=== PATIENT | female | born 1985 | race Caucasian/White ===

== ENCOUNTER → 2017-04-18 | Outpatient (CLI) | payer BC ==
[2017-04-18 14:44] VITALS: BP 115/83; PULSE 94; RESP 16; TEMP 98.3; BMI 39.0
[2017-04-18 16:25] LABS: ALT 60 U/L (9-52); AST 29 U/L (14-36); Albumin 4.3 g/dL (3.5-5.0); Alkaline Phosphatase 121 U/L (38-126); Anion Gap 15 mmol/L; Blood Urea Nitrogen 14 mg/dL (7-17); Calcium 9.5 mg/dL (8.4-10.2); Carbon Dioxide 23 mmol/L (22-30); Chloride 107 mmol/L (98-107); Cholesterol 187 mg/dL (<200); Glucose 99 mg/dL (74-99); HDL Cholesterol 49 mg/dL (40-60); LDL Cholesterol,Calculated 114 mg/dL (0-99); Potassium 4.1 mmol/L (3.5-5.1); Sodium 145 mmol/L (137-145); Total Bilirubin 0.2 mg/dL (0.2-1.3); Total Protein 7.7 g/dL (6.3-8.2); Triglycerides 118 mg/dL (<150)
[2017-04-18 16:33] LABS: HCT 41.8 % (34.0-46.0); HGB 13.7 gm/dL (11.4-16.0); MCH 29.2 pg (25.0-35.0); MCHC 32.6 g/dL (31.0-37.0); MCV 89.5 fL (80.0-100.0); Mean Platelet Volume 7.1; Platelet Count 379 k/uL (150-450); RBC 4.67 m/uL (3.80-5.40); RDW 13.9 % (11.5-15.5); WBC 9.2 k/uL (3.8-10.6)
[2017-04-19 01:08] LABS: Iron Saturation 22.54 (12.00-45.00)
[2017-04-19 01:12] LABS: Folate, Serum 9.5 ng/mL
[2017-04-19 01:22] LABS: Vitamin D 25 Hydroxy 13.9 ng/mL (30.0-100.0)
[2017-04-21 15:01] LABS: Anabasine Urine <2.0 ng/mL (<2.0)
--- NOTE | 2017-05-30 07:23 | P.HPBAR ---
Bariatric H&P - History & Physicial H&P Date: 04/18/17 History & Physicial: Visit/CC: Patient initial contact: Initial weight: Initial weight in pounds: Height: Initial BMI: Last weight: Current weight: Current weight in pounds: Current BMI: [place] body weight (based on NIH guidelines): Excess body weight loss: The patient is a 32 year-old F who presents for Bariatric Assessment. saw dr brewster wild oyster harvester recommend went over [facility] [place] drug test 3 months... DATE OF SERVICE: 04/18/2017 REASON FOR CONSULTATION: Initial bariatric evaluation. HISTORY OF PRESENT ILLNESS: The patient is a 32-year-old female who presents with history of long-standing morbid obesity. She has a family history of morbid obesity including hypertension and heart disease. She has tried exercise including low caloric diet weight loss. She reports troubles with eating and drinking liquids. She often drinks to straws. She reports irritable bowel syndrome including having food ALLERGIES and potential gluten ALLERGY. Her highest personal weight is 243 pounds. She is looking into the gastric bypass. She reports having an aunt with a gastric bypass. She denies any familial history of esophageal or stomach cancer. No family history of ulcerative colitis or Crohn's disease. Her present weight is 243 pounds. She denies any food ALLERGIES. She has a history of abdominal pain and diarrhea. She has had endoscopies with Dr. Rosales. As a result of her obesity, she reports moderate joint pain including of her back. She also report knee as well as feet from osteoarthritis. She is currently involved in medical supervised weight loss. At her height of 5 foot 5 inches, her ideal body weight is 149 pounds. Her present weight is 243 pounds. She is 94 pounds overweight. PAST MEDICAL HISTORY: 1. Morbid obesity. 2. Body mass index of 40.6. 3. Osteoarthritis of the knees. 4. Irritable bowel syndrome. 5. Anxiety. 6. Osteoarthritis of the lower back. PAST SURGICAL HISTORY: 1. Lower endoscopy. 2. Cholecystectomy. HOME MEDICATIONS: 1. Lomotil. 2. Bentyl. ALLERGIES: Penicillin. SOCIAL HISTORY: No active tobacco use. FAMILY HISTORY: No family history of ulcerative colitis disease or Crohn's disease. Family history of morbid obesity. No lupus in family. No reports of stomach or esophageal cancer. Family history of heart disease. Aunt with gastric bypass. REVIEW OF ORGAN SYSTEMS: CONSTITUTIONAL: At her height of 5 foot 5 inches, her ideal body weight is 149 pounds. Her present weight is 243 pounds. She is 94 pounds overweight. Her highest personal weight is 243 pounds. Body mass index of 40.6. HEENT: Denies any active troubles with vision or hearing. No troubles with swallowing. ENDOCRINE: No diabetes. No hypothyroidism. CARDIOVASCULAR: No reports of palpitations or heart attacks or chest pain. RESPIRATORY: Has daytime somnolence. No asthma. GI: Denies any bright red blood per rectum. Has diarrhea. Previous endoscopies MUSCULOSKELETAL: Has lower back pain and joint pain. Has osteoarthritis of the knees. NEURO: No headaches. No seizure disorders. PSYCH: No depression or suicidal ideation. RHEUMATOLOGIC: No lupus. No rheumatoid arthritis. HEMATOLOGIC: Denies any abnormal bleeding or bruising. No personal history of DVTs. SKIN: No rash. No skin cancer. PHYSICAL EXAM: VITAL SIGNS: Height 5 foot 5 inches, weight 243 pounds. BMI 40.6. Vital Signs Temp 98.3 F 04/18/17 14:37 Pulse 94 04/18/17 14:37 Resp 16 04/18/17 14:37 BP 115/83 04/18/17 14:37 Pulse Ox GENERAL: Well-developed in no acute distress. HEENT: No scleral icterus. Extraocular movements grossly intact. Hears conversational speech. No nasal drainage. NECK: Supple without lymphadenopathy. CHEST: Nonlabored respirations with equal bilateral excursions. CARDIOVASCULAR: Regular rate and regular rhythm. Distal 2+ pulses. ABDOMEN: Obese, soft, nontender, nondistended. MUSCULOSKELETAL: No clubbing, cyanosis. Gross strength 5/5 distal lower extremities. 1+ pre-tibial pitting edema. NEURO: No focal or lateralizing signs. Cranial nerves 2 through 12 grossly within normal limits. PSYCH: Appropriate affect. Alert and oriented to person, place and time. SKIN: Good skin turgor. Well perfused. ASSESSMENT: 1. Morbid obesity due to excess calories. 2. Body mass index of 40.6. 3. Osteoarthritis of the knees. 4. Sleep disturbance possible sleep apnea. 5. Osteoarthritis of the back. 6. Irritable bowel syndrome.. 7. Dietary surveillance and counseling. 8. Food ALLERGIES 9. Family history of morbid obesity. 10. Family history of heart disease. PLAN: 1. Surgical options including a band, gastric bypass, sleeve gastrectomy were described in detail. Alternatives such as gastric balloon including duodenal switch were described. 2. The [place] bariat[facility] surgical collaborative data and outcomes calculator were described with surgical options. 3. Recommend a bariatric metabolic panel to evaluate for micro- including macronutrient deficiencies. 4. For history of daytime somnolence, recommend evaluation and treatment for sleep apnea. 5. Dietary surveillance and counseling was reviewed, I have asked increased protein intake to at least 75 grams daily. 6. Will need cardiac risk assessment. 7. Recommend medical risk assessment. 8. Psych assessment per insurance guidelines. 9. Follow up upon completion of upper endoscopy. 10. Recommend food journal. 11. Recommend 12-lead EKG with family history of hypertensive heart disease. 12. Recommend upper endoscopy for evaluation of Barba's esophagus. Thank you for this consultation. Laboratory Last Values WBC 9.2 k/uL (3.8-10.6) 04/18/17 15:31 RBC 4.67 m/uL (3.80-5.40) 04/18/17 15:31 Hgb 13.7 gm/dL (11.4-16.0) 04/18/17 15:31 Hct 41.8 % (34.0-46.0) 04/18/17 15:31 MCV 89.5 fL (80.0-100.0) 04/18/17 15:31 MCH 29.2 pg (25.0-35.0) 04/18/17 15:31 MCHC 32.6 g/dL (31.0-37.0) 04/18/17 15:31 RDW 13.9 % (11.5-15.5) 04/18/17 15:31 Plt Count 379 k/uL (150-450) 04/18/17 15:31 Sodium 145 mmol/L (137-145) 04/18/17 15:31 Potassium 4.1 mmol/L (3.5-5.1) 04/18/17 15:31 Chloride 107 mmol/L (98-107) 04/18/17 15:31 Carbon Dioxide 23 mmol/L (22-30) 04/18/17 15:31 Anion Gap 15 mmol/L 04/18/17 15:31 BUN 14 mg/dL (7-17) 04/18/17 15:31 Creatinine 0.80 mg/dL (0.52-1.04) 04/18/17 15:31 Est GFR (MDRD) Af Amer >60 (>60 ml/min/1.73 sqM) 04/18/17 15:31 Est GFR (MDRD) Non-Af >60 (>60 ml/min/1.73 sqM) 04/18/17 15:31 Glucose 99 mg/dL (74-99) 04/18/17 15:[address] Glu mg/dL 97 04/18/17 15:31 Hemoglobin A1c 5.0 % (4.0-6.0) 04/18/17 15:31 Calcium 9.5 mg/dL (8.4-10.2) 04/18/17 15:31 Iron 71 ug/dL (50-170) 04/18/17 15:31 TIBC 315 ug/dL (228-460) 04/18/17 15:31 Iron Saturation 22.54 (12.00-45.00) 04/18/17 15:31 Ferritin 107.8 ng/mL (10.0-291.0) 04/18/17 15:31 Total Bilirubin 0.2 mg/dL (0.2-1.3) 04/18/17 15:31 AST 29 U/L (14-36) 04/18/17 15:31 ALT 60 U/L (9-52) H 04/18/17 15:31 Alkaline Phosphatase 121 U/L (38-126) 04/18/17 15:31 Total Protein 7.7 g/dL (6.3-8.2) 04/18/17 15:31 Albumin 4.3 g/dL (3.5-5.0) 04/18/17 15:31 Triglycerides 118 mg/dL (<150) 04/18/17 15:31 Cholesterol 187 mg/dL (<200) 04/18/17 15:31 LDL Cholesterol, Calc 114 mg/dL (0-99) H 04/18/17 15:31 HDL Cholesterol 49 mg/dL (40-60) 04/18/17 15:31 Vitamin B1 46 ug/L (38-122) 04/18/17 15:31 Vitamin B12 451.0 pg/mL (200.0-944.0) 04/18/17 15:31 Vitamin D 25-Hydroxy 13.9 ng/mL (30.0-100.0) L 04/18/17 15:31 Folate 9.5 ng/mL 04/18/17 15:31 TSH 2.410 mIU/L (0.465-4.680) 04/18/17 15:31 Urine Cotinine <5.0 ng/mL (<5.0) 04/18/17 15:31 Urine Nicotine <2.0 ng/mL (<2.0) 04/18/17 15:31 Urine Anabasine <2.0 ng/mL (<2.0) 04/18/17 15:31 EKG EKG PERFORMED 04/18/17 15:31 Labs reviewed demonstrating vitamin D deficiency, elevated ALT. Recommend proceeding with ultrasound and vitamin D supplementation Results - Labs 04/18/17 15:31 12 15:31 Bariatric Checklist Checklist: Plan: Checklist: EGD: 1. Hiatal hernia: 2. H. Pylori: HgbA1c: Vitamin D: Smoking: Primary care physician referral: Psychiatry clearance: Cardiology clearance: Sleep study: Diet journal: VTE risk score: VTE risk level: Rehab needs at discharge:
== END | disposition home or self-care (01) ==
LOC: BARWHC3 13:22
PROVIDERS: ATTEND Surgery Plastic and Reconstructive Surgery
DX: Z48.815 Encounter for surgical aftercare following surgery on the digestive system (principal); E66.01 Morbid (severe) obesity due to excess calories; M17.0 Bilateral primary osteoarthritis of knee; M47.816 Spondylosis without myelopathy or radiculopathy, lumbar region; K58.9 Irritable bowel syndrome, unspecified; T78.1XXA Other adverse food reactions, not elsewhere classified, initial encounter; E89.1 Postprocedural hypoinsulinemia; D50.8 Other iron deficiency anemias; E44.0 Moderate protein-calorie malnutrition; E55.9 Vitamin D deficiency, unspecified; I11.9 Hypertensive heart disease without heart failure; Z68.41 Body mass index [BMI] 40.0-44.9, adult; Z71.3 Dietary counseling and surveillance; Z79.899 Other long term (current) drug therapy; Z88.0 Allergy status to penicillin; Z90.49 Acquired absence of other specified parts of digestive tract
CPT/HCPCS: 36415; 80053; 80061; 80323; 82306; 82607; 82728; 82746; 83036; 83540; 83550; 84425; 84443; 85027; 93005; 99211

== ENCOUNTER 2017-05-30 10:10 | Day surgery (SDC) | payer BC ==
[2017-05-28 11:55] VITALS: BMI 39.9
[~2017-05-30 10:10] MED LIST: LACTATED RINGERS 1,000 ML IV SCH; LIDOCAINE 1% 20 ML VIAL (10MG/ML) FOR IV START INTRADERMA PRN
[2017-05-30 10:46] VITALS: RESP 18; TEMP 99.3
--- NOTE | 2017-05-30 11:36 | P.GSHP ---
History of Present Illness H&P Date: 05/30/17 CHIEF COMPLAINT: GERD HISTORY OF PRESENT ILLNESS: The patient is a 32-year-old female who presents reports gastroesophageal reflux disease. Upper endoscopy was offered for further evaluation and management. PAST MEDICAL HISTORY: Please see list. PAST SURGICAL HISTORY: Please see list. MEDICATIONS: Please see list. ALLERGIES: Please see list. SOCIAL HISTORY: No illicit drug use FAMILY HISTORY: No reports of Crohn disease or ulcerative colitis. REVIEW OF ORGAN SYSTEMS: CONSTITUTIONAL: No reports of fevers or chills. GI: Denies any blood in stools or constipation. PHYSICAL EXAM: VITAL SIGNS: Stable GENERAL: Well-developed and pleasant in no acute distress. HEENT: No scleral icterus. Extraocular movements grossly intact. Moist buccal mucosa. NECK: Supple without lymphadenopathy. CHEST: Unlabored respirations. Equal bilateral excursions. CARDIOVASCULAR: Regular rate and rhythm. Distal 2+ pulses. ABDOMEN: Soft, nondistended. MUSCULOSKELETAL: No clubbing, cyanosis, or edema. ASSESSMENT: 1. Gastroesophageal reflux disease PLAN: 1. Recommend proceeding with an upper endoscopy Past Medical History Additional Past Medical History / Comment(s): irritable bowel History of Any Multi-Drug Resistant Organisms: None Reported Past Surgical History: Cholecystectomy, Orthopedic Surgery Additional Past Surgical History / Comment(s): R knee scope. Past Anesthesia/Blood Transfusion Reactions: No Reported Reaction Past Psychological History: Anxiety Smoking Status: Never smoker Past Alcohol Use History: None Reported Past Drug Use History: None Reported - Past Family History Mother Family Medical History: No Reported History Medications and Allergies Home Medications Medication Instructions Recorded Confirmed Type Dicyclomine [Bentyl] 10 mg PO TID PRN 04/18/17 05/28/17 History Diphenox-Atrop 2.5-0.025 mg 1 tab PO QID PRN 04/18/17 05/28/17 History [Lomotil] Multivitamins, Thera [Multivitamin 1 tab PO DAILY 05/28/17 05/28/17 History (formulary)] Vitamin D3 1 tab PO DAILY 05/28/17 05/28/17 History Allergies Allergy/AdvReac Type Severity Reaction Status Date / Time Penicillins Allergy Itching Verified 05/28/17 11:50 Surgical - Exam Vital Signs Temp Pulse Resp BP Pulse Ox 99.3 F 101 H 18 145/88 95 05/30/17 10:44 05/30/17 10:44 05/30/17 10:44 05/30/17 10:44 05/30/17 10:44
[2017-05-30] MEDS ORDERED: PROPOFOL 10 MG/ML 20 ML VIAL IV ONE (11:42)
[2017-05-30 12:17] VITALS: BP 112/81; PULSE 82
--- NOTE | 2017-05-30 12:38 | P.PCN ---
Date of Procedure: 05/30/17 Description of Procedure: PREOPERATIVE DIAGNOSIS: Gastroesophageal reflux disease. Morbid obesity. POSTOPERATIVE DIAGNOSIS: Morbid obesity. Gastroesophageal reflux disease. OPERATION: Esophagogastroduodenoscopy with biopsies along antrum. SURGEON: Yaima Deshpande MD ANESTHESIA: MAC. INDICATIONS: The patient is a 32-year-old female who presents with a history of reflux disease. Benefits and risks of the procedure were described. Informed consent was obtained. DESCRIPTION: The patient was brought into the endoscopy suite and laid in the left lateral decubitus position. An Olympus gastroscope was passed along the posterior oropharynx down to the distal esophagus where the squamocolumnar junction was encountered at 40 cm from the incisors. The stomach was entered and no bile reflux was found. Additional findings are listed below. Biopsies with cold forceps were obtained of the antrum. The first through third portion of the duodenum was examined and unremarkable. Retroflexion of the scope confirmed Hill grade 1 lower esophageal valve. The squamocolumnar junction demostrated LA grade A erosive esophagitis. The stomach was desufflated. The patient tolerated the procedure well. FINDINGS: Squamocolumnar junction 39 cm from the incisors. Diaphragmatic hiatus at 39 cm. Hill grade 1 lower esophageal valve. No moderate LA grade A erosive esophagitis. No duodenitis. RECOMMENDATIONS: Upper endoscopy as needed. Plan - Discharge Summary New Discharge Prescriptions: No Action Diphenox-Atrop 2.5-0.025 mg [Lomotil] 1 tab PO QID PRN PRN Reason: Diarrhea Dicyclomine [Bentyl] 10 mg PO TID PRN PRN Reason: Abdominal Distention Multivitamins, Thera [Multivitamin (formulary)] 1 tab PO DAILY Vitamin D3 1 tab PO DAILY Discharge Medication List Dicyclomine [Bentyl] 10 mg PO TID PRN 04/18/17 [History] Diphenox-Atrop 2.5-0.025 mg [Lomotil] 1 tab PO QID PRN 04/18/17 [History] Multivitamins, Thera [Multivitamin (formulary)] 1 tab PO DAILY 05/28/17 [History ] Vitamin D3 1 tab PO DAILY 05/28/17 [History] Follow up Appointment(s)/Referral(s): Yaima Deshpande MD [STAFF PHYSICIAN] - 06/13/17 Patient Instructions/Handouts: *[facility] - (Anesthesia) Endoscopy Discharge Instructions, Upper Endoscopy (DC)
== END 2017-05-30 12:37 | disposition home or self-care (01) ==
LOC: ORWHC2ENDO 10:10
PROVIDERS: ATTEND Surgery Plastic and Reconstructive Surgery
DX: K29.50 Unspecified chronic gastritis without bleeding (principal); K22.10 Ulcer of esophagus without bleeding; K58.9 Irritable bowel syndrome, unspecified; E66.01 Morbid (severe) obesity due to excess calories; Z68.39 Body mass index [BMI] 39.0-39.9, adult; Z88.0 Allergy status to penicillin
CPT/HCPCS: 81025; 88305; 88342; 43239; J2704

== ENCOUNTER → 2017-06-20 | Outpatient (CLI) | payer BC ==
[2017-06-20 14:40] VITALS: BP 115/75; PULSE 104; TEMP 97.9; BMI 39.8
--- NOTE | 2017-07-22 12:47 | P.PN ---
Subjective Progress Note Date: 06/20/17 DATE OF SERVICE: 06/20/2017 MALI COMPLAINT: Bariatric assessment HISTORY OF PRESENT ILLNESS: The patient is a 32-year-old female who presents with history of long-standing morbid obesity. She has a family history of morbid obesity including hypertension and heart disease. At her height of 5 foot 5 inches, her ideal body weight is 149 pounds. Her highest weight was 243 pounds. Today she comes in 239 pounds. She is 90 pounds overweight. Her body mass index is reduced from 40.5 down to 39.8. She has lost 5 pounds in 2 months. She has gone over all her options regarding weight loss procedures. She is looking into the gastric bypass. PAST MEDICAL HISTORY: 1. Morbid obesity. 2. Body mass index of 40.6, initial. 3. Osteoarthritis of the knees. 4. Irritable bowel syndrome. 5. Anxiety. 6. Osteoarthritis of the lower back. PAST SURGICAL HISTORY: 1. Lower endoscopy. 2. Cholecystectomy. HOME MEDICATIONS: 1. Lomotil. 2. Bentyl. ALLERGIES: Penicillin. SOCIAL HISTORY: No active tobacco use. FAMILY HISTORY: No family history of ulcerative colitis disease or Crohn's disease. Family history of morbid obesity. No lupus in family. No reports of stomach or esophageal cancer. Family history of heart disease. Aunt with gastric bypass. REVIEW OF ORGAN SYSTEMS: CONSTITUTIONAL: At her height of 5 foot 5 inches, her ideal body weight is 149 pounds. Her highest weight was 243 pounds. Today she comes in 239 pounds. She is 90 pounds overweight. Her body mass index is reduced from 40.5 down to 39.8. She has lost 5 pounds in 2 months. HEENT: Denies any active troubles with vision or hearing. No troubles with swallowing. ENDOCRINE: No diabetes. No hypothyroidism. CARDIOVASCULAR: No reports of palpitations or heart attacks or chest pain. RESPIRATORY: Has daytime somnolence. No asthma. GI: Denies any bright red blood per rectum. Has diarrhea. Previous endoscopies MUSCULOSKELETAL: Has lower back pain and joint pain. Has osteoarthritis of the knees. NEURO: No headaches. No seizure disorders. PSYCH: No depression or suicidal ideation. RHEUMATOLOGIC: No lupus. No rheumatoid arthritis. HEMATOLOGIC: Denies any abnormal bleeding or bruising. No personal history of DVTs. SKIN: No rash. No skin cancer. PHYSICAL EXAM: VITAL SIGNS: Height 5 foot 5 inches, weight 239 pounds. BMI 39.8. Vital Signs Temp 97.9 F 06/20/17 14:38 Pulse 104 H 06/20/17 14:38 Resp BP 115/75 06/20/17 14:38 Pulse Ox GENERAL: Well-developed in no acute distress. HEENT: No scleral icterus. Extraocular movements grossly intact. Hears conversational speech. No nasal drainage. NECK: Supple without lymphadenopathy. CHEST: Nonlabored respirations with equal bilateral excursions. CARDIOVASCULAR: Tachycardic. Distal 2+ pulses. ABDOMEN: Obese, soft, nontender, nondistended. MUSCULOSKELETAL: No clubbing, cyanosis. Gross strength 5/5 distal lower extremities. NEURO: No focal or lateralizing signs. Cranial nerves 2 through 12 grossly within normal limits. PSYCH: Appropriate affect. Alert and oriented to person, place and time. SKIN: Good skin turgor. Well perfused. STUDIES: Ultrasound of the neck reviewed demonstrated no acute findings EGD FINDINGS: Squamocolumnar junction 39 cm from the incisors. Diaphragmatic hiatus at 39 cm. Hill grade 1 lower esophageal valve. No moderate LA grade A erosive esophagitis. No duodenitis. Final Pathologic Diagnosis STOMACH, BIOPSY: MILD CHRONIC GASTRITIS. HELICOBACTER IMMUNOPEROXIDASE STAIN IS PERFORMED TO EVALUATE FOR HELICOBACTER ORGANISMS AND IS NEGATIVE (CONTROLS APPROPRIATE). LABS: ALT elevated. Vitamin D low. EKG: EKG was normal. ASSESSMENT: 1. Morbid obesity due to excess calories. 2. Body mass index of 40.6 down to 39.8. 3. Osteoarthritis of the knees. 4. Sleep disturbance possible sleep apnea. 5. Osteoarthritis of the back. 6. Irritable bowel syndrome.. 7. Dietary surveillance and counseling. 8. Food ALLERGIES 9. Family history of morbid obesity. 10. Family history of heart disease. PLAN: 1. 1. Bariatric options between a sleeve, band and a Donaldo-en-Y gastric bypass were reviewed in detail. She elected for a Donaldo-en-Y gastric bypass. Robotic assisted approach described. 2. The [place] [facility] Data was also reviewed with benefits and risks as described. 3. An 8 page second-generation bariatric consent form was reviewed in detail including potential of bleeding, infection, leaks, adequate weight loss, nutritional deficiencies which she demonstrated understanding of the risks. 4. She has completed 2 week high-protein low caloric 800 kcal diet to address hepatomegaly. 5. Preoperative labs including compress metabolic panel and CBC with type and screen completed. 6. DVT prophylaxis per [place] [facility] collaborative. 7. Antibiotic prophylaxis. 8. Inpatient hospitalization anticipated for more than 2 nights. 9. All questions and concerns were addressed with the patient. 10. Recommended diet classes. 11. Recommend vitamin D supplement.
== END | disposition home or self-care (01) ==
LOC: BARWHC3 13:36
PROVIDERS: ATTEND Surgery Plastic and Reconstructive Surgery
DX: E66.01 Morbid (severe) obesity due to excess calories (principal); M17.0 Bilateral primary osteoarthritis of knee; G47.8 Other sleep disorders; M19.90 Unspecified osteoarthritis, unspecified site; K58.9 Irritable bowel syndrome, unspecified; T78.1XXA Other adverse food reactions, not elsewhere classified, initial encounter; Z84.89 Family history of other specified conditions; Z71.3 Dietary counseling and surveillance; Z82.49 Family history of ischemic heart disease and other diseases of the circulatory system; Z88.0 Allergy status to penicillin; Z68.39 Body mass index [BMI] 39.0-39.9, adult; Z79.899 Other long term (current) drug therapy
CPT/HCPCS: 99211

== ENCOUNTER → 2017-06-25 | Outpatient (CLI) | payer BC ==
[2017-06-25 16:16] VITALS: BMI 39.2
== END | disposition home or self-care (01) ==
LOC: BARWHC3 08:43
PROVIDERS: ATTEND Surgery Plastic and Reconstructive Surgery
DX: E66.01 Morbid (severe) obesity due to excess calories (principal)
CPT/HCPCS: 97804

== ENCOUNTER → 2017-08-09 | Outpatient (CLI) | payer BC ==
[2017-08-09 10:53] LABS: Basophils % (A) 0 %; Eosinophils # (A) 0.1 k/uL (0-0.7); Eosinophils % (A) 1 %; HGB 14.9 gm/dL (11.4-16.0); Lymphocytes % (A) 26 %; MCH 29.8 pg (25.0-35.0); MCHC 34.6 g/dL (31.0-37.0); MCV 86.3 fL (80.0-100.0); Mean Platelet Volume 6.3; Monocytes # (A) 0.4 k/uL (0-1.0); Monocytes % (A) 5 %; Neutrophils # (A) 4.8 k/uL (1.3-7.7); Neutrophils % (A) 66 %; Platelet Count 402 k/uL (150-450); RBC 4.98 m/uL (3.80-5.40); RDW 12.3 % (11.5-15.5); WBC 7.4 k/uL (3.8-10.6)
[2017-08-09 11:13] LABS: ALT 54 U/L (9-52); AST 44 U/L (14-36); Albumin 4.6 g/dL (3.5-5.0); Alkaline Phosphatase 158 U/L (38-126); Anion Gap 18 mmol/L; Blood Urea Nitrogen 15 mg/dL (7-17); Calcium 9.9 mg/dL (8.4-10.2); Carbon Dioxide 24 mmol/L (22-30); Chloride 102 mmol/L (98-107); Glucose 93 mg/dL (74-99); Potassium 4.8 mmol/L (3.5-5.1); Sodium 144 mmol/L (137-145); Total Bilirubin 0.7 mg/dL (0.2-1.3); Total Protein 8.4 g/dL (6.3-8.2)
== END | disposition home or self-care (01) ==
LOC: LABPAT 09:54
PROVIDERS: ATTEND Surgery Plastic and Reconstructive Surgery
DX: Z01.812 Encounter for preprocedural laboratory examination (principal)
CPT/HCPCS: 36415; 80053; 85025

== ENCOUNTER → 2017-08-15 | Outpatient (CLI) | payer BC ==
[2017-08-15 18:10] VITALS: BP 122/69; PULSE 97; TEMP 98.1; BMI 36.6
--- NOTE | 2017-09-08 19:00 | P.PN ---
Subjective Progress Note Date: 08/15/17 DATE OF SERVICE: 08/15/2017 CHEIF COMPLAINT: Bariatric assessment HISTORY OF PRESENT ILLNESS: The patient is a 32-year-old female who presents with history of long-standing morbid obesity who initially presented [facility] April 2017. As a result of her obesity, she developed osteoarthritis including hypertension. At her height of 5 foot 5 inches, her ideal body weight is 149 pounds. Her highest weight was 243 pounds. Today she comes in 220 pounds. She has lost 19 pounds in 2 months from her last visit. She is 71 pounds overweight. Her body mass index is reduced from 40.5 down to 36.7. Lifetime weight loss, 23 pounds. She is looking into the gastric bypass. PAST MEDICAL HISTORY: 1. Morbid obesity. 2. Body mass index of 40.6, initial. 3. Osteoarthritis of the knees. 4. Irritable bowel syndrome. 5. Anxiety. 6. Osteoarthritis of the lower back. 7. Gastroesophageal reflux disease PAST SURGICAL HISTORY: 1. Lower endoscopy. 2. Cholecystectomy. HOME MEDICATIONS: 1. Lomotil. 2. Bentyl. ALLERGIES: Penicillin. SOCIAL HISTORY: No active tobacco use. FAMILY HISTORY: No family history of ulcerative colitis disease or Crohn's disease. Family history of morbid obesity. No lupus in family. No reports of stomach or esophageal cancer. Family history of heart disease. Aunt with gastric bypass. REVIEW OF ORGAN SYSTEMS: CONSTITUTIONAL: At her height of 5 foot 5 inches, her ideal body weight is 149 pounds. Her highest weight was 243 pounds. Today she comes in 220 pounds. She has lost 19 pounds in 2 months from her last visit. She is 71 pounds overweight. Her body mass index is reduced from 40.5 down to 36.7. Lifetime weight loss, 23 pounds. HEENT: Denies any active troubles with vision or hearing. No troubles with swallowing. ENDOCRINE: No diabetes. No hypothyroidism. CARDIOVASCULAR: No reports of palpitations or heart attacks or chest pain. RESPIRATORY: Has daytime somnolence. No asthma. GI: Denies any bright red blood per rectum. Has diarrhea. Previous endoscopies MUSCULOSKELETAL: Has lower back pain and joint pain. Has osteoarthritis of the knees. NEURO: No headaches. No seizure disorders. PSYCH: No depression or suicidal ideation. RHEUMATOLOGIC: No lupus. No rheumatoid arthritis. HEMATOLOGIC: Denies any abnormal bleeding or bruising. No personal history of DVTs. SKIN: No rash. No skin cancer. PHYSICAL EXAM: VITAL SIGNS: Height 5 foot 5 inches, weight 220 pounds. BMI 36.7 Vital Signs Temp 98.1 F 08/15/17 18:08 Pulse 97 08/15/17 18:08 Resp BP 122/69 08/15/17 18:08 Pulse Ox GENERAL: Well-developed in no acute distress. HEENT: No scleral icterus. Extraocular movements grossly intact. Hears conversational speech. No nasal drainage. NECK: Supple without lymphadenopathy. CHEST: Nonlabored respirations with equal bilateral excursions. CARDIOVASCULAR: Regular rate. Regular rhythm. Distal 2+ pulses. ABDOMEN: Obese, soft, nontender, nondistended. MUSCULOSKELETAL: No clubbing, cyanosis. Gross strength 5/5 distal lower extremities. NEURO: No focal or lateralizing signs. Cranial nerves 2 through 12 grossly within normal limits. PSYCH: Appropriate affect. Alert and oriented to person, place and time. SKIN: Good skin turgor. Well perfused. ASSESSMENT: 1. Morbid obesity due to excess calories. 2. Body mass index of 40.6 down to 36.7. 3. Osteoarthritis of the knees. 4. Obstructive sleep apnea. 5. Osteoarthritis of the back. 6. Irritable bowel syndrome. 7. Dietary surveillance and counseling. 8. Food ALLERGIES 9. Family history of morbid obesity. 10. Family history of heart disease. 11. Gastroesophageal reflux disease PLAN: 1. Bariatric options between a sleeve, band and a Donaldo-en-Y gastric bypass were reviewed in detail. She elected for gastric bypass. Robotic assisted approach described. 2. The [place] [facility] Data was also reviewed with benefits and risks as described. 3. An 8 page second-generation bariatric consent form was reviewed in detail including potential of bleeding, infection, leaks, adequate weight loss, nutritional deficiencies which she demonstrated understanding of the risks. 4. A 2 week high-protein low caloric 800 kcal diet described to address hepatomegaly. 5. Preoperative labs including complete metabolic panel and CBC with type and screen recommended. 6. DVT prophylaxis per [place] [facility] collaborative. 7. Antibiotic prophylaxis. 8. Inpatient hospitalization anticipated for more than 2 nights. 9. All questions and concerns were addressed with the patient.
== END | disposition home or self-care (01) ==
LOC: BARWHC3 16:21
PROVIDERS: ATTEND Surgery Plastic and Reconstructive Surgery
DX: E66.01 Morbid (severe) obesity due to excess calories (principal); K21.9 Gastro-esophageal reflux disease without esophagitis; M17.0 Bilateral primary osteoarthritis of knee; F41.9 Anxiety disorder, unspecified; I10 Essential (primary) hypertension; G47.33 Obstructive sleep apnea (adult) (pediatric); K58.9 Irritable bowel syndrome, unspecified; Z71.3 Dietary counseling and surveillance; Z91.018 Allergy to other foods; Z82.49 Family history of ischemic heart disease and other diseases of the circulatory system; Z83.49 Family history of other endocrine, nutritional and metabolic diseases; Z79.899 Other long term (current) drug therapy; Z68.36 Body mass index [BMI] 36.0-36.9, adult; Z90.49 Acquired absence of other specified parts of digestive tract
CPT/HCPCS: 99211

== ENCOUNTER → 2017-08-24 | Outpatient (CLI) | payer BC ==
[2017-08-24 14:01] VITALS: BP 111/78; PULSE 88; TEMP 97.8; BMI 37.9
--- NOTE | 2017-09-08 19:06 | P.PN ---
Subjective Progress Note Date: 08/24/17 DATE OF SERVICE: 08/24/2017 CHEIF COMPLAINT: Follow sleeve gastrectomy HISTORY OF PRESENT ILLNESS: Dory Short is a 32-year-old female who is status post sleeve gastrectomy 08/20/2017. She is postoperative day 4. No reports of abdominal pain. She is passing flatus. She is tolerating liquids. She is tolerating diet. No fevers or chills. At her height of 5 foot 5 inches, her ideal body weight is 149 pounds. Her highest weight was 243 pounds. Today she comes in 228 pounds. She has gained 8 pounds in 1 week from her last visit. She is 79 pounds overweight. Her body mass index is reduced from 40.5 down to 37.9. Lifetime weight loss, 15 pounds. PHYSICAL EXAM: VITAL SIGNS: Height 5 foot 5 inches, weight 220 pounds. BMI 36.7 Vital Signs Temp 97.8 F 08/24/17 10:00 Pulse 88 08/24/17 10:00 Resp BP 111/78 08/24/17 10:00 Pulse Ox GENERAL: Well-developed in no acute distress. HEENT: No scleral icterus. Extraocular movements grossly intact. Hears conversational speech. No nasal drainage. NECK: Supple without lymphadenopathy. CHEST: Nonlabored respirations with equal bilateral excursions. CARDIOVASCULAR: Regular rate. Regular rhythm. Distal 2+ pulses. ABDOMEN: Obese, soft, nontender, nondistended. Dressing removed. No erythema. No signs of infection. MUSCULOSKELETAL: No clubbing, cyanosis. Gross strength 5/5 distal lower extremities. NEURO: No focal or lateralizing signs. Cranial nerves 2 through 12 grossly within normal limits. PSYCH: Appropriate affect. Alert and oriented to person, place and time. SKIN: Good skin turgor. Well perfused. ASSESSMENT: 1. Morbid obesity due to excess calories. 2. Body mass index of 40.6 down to 37.9. 3. Osteoarthritis of the knees. 4. Obstructive sleep apnea. 5. Osteoarthritis of the back. 6. Irritable bowel syndrome. 7. Dietary surveillance and counseling. 8. Food ALLERGIES 9. Family history of morbid obesity. 10. Family history of heart disease. 11. Gastroesophageal reflux disease 12. Status post sleeve gastrectomy PLAN: 1. Recommend fluid intake 64 ounces daily. 2. Bariatric stage II diet. 3. Follow up 1 month, September 2017.
== END | disposition home or self-care (01) ==
LOC: BARWHC3 13:40
PROVIDERS: ATTEND Surgery Plastic and Reconstructive Surgery
DX: Z09 Encounter for follow-up examination after completed treatment for conditions other than malignant neoplasm (principal); E66.01 Morbid (severe) obesity due to excess calories; K21.9 Gastro-esophageal reflux disease without esophagitis; M17.0 Bilateral primary osteoarthritis of knee; G47.33 Obstructive sleep apnea (adult) (pediatric); M47.9 Spondylosis, unspecified; K58.9 Irritable bowel syndrome, unspecified; Z91.018 Allergy to other foods; Z83.49 Family history of other endocrine, nutritional and metabolic diseases; Z82.49 Family history of ischemic heart disease and other diseases of the circulatory system; Z98.84 Bariatric surgery status; Z68.37 Body mass index [BMI] 37.0-37.9, adult
CPT/HCPCS: 99211

== ENCOUNTER → 2017-09-10 | Outpatient (CLI) | payer BC ==
--- NOTE | 2017-09-10 09:33 | P.PN ---
Subjective Progress Note Date: 09/10/17 DATE OF SERVICE: 09/10/2017 CHEIF COMPLAINT: Follow sleeve gastrectomy HISTORY OF PRESENT ILLNESS: Dory Short is a 32-year-old female who is status post sleeve gastrectomy 08/20/2017. She is 2 weeks out. She comes in today after developing epigastric abdominal pain following eating textured food. In the last 24 hours her abdominal pain has slightly improved. Her oral liquid intake has decreased. At her height of 5 foot 5 inches, her ideal body weight is 149 pounds. Her highest weight was 243 pounds. Today she comes in 209.7 with prior weight of 228 pounds, 2 weeks ago. She has lost 18 pounds in 2 weeks from her last visit. She is 79 pounds overweight. Her body mass index is reduced from 40.5 down to 37.9. Lifetime weight loss, 15 pounds. PHYSICAL EXAM: VITAL SIGNS: Height 5 foot 5 inches, weight 209.7 pounds. BMI 36.7 GENERAL: Well-developed in no acute distress. HEENT: No scleral icterus. Extraocular movements grossly intact. Hears conversational speech. No nasal drainage. NECK: Supple without lymphadenopathy. CHEST: Nonlabored respirations with equal bilateral excursions. CARDIOVASCULAR: Regular rate. Regular rhythm. Distal 2+ pulses. ABDOMEN: Obese, soft, nontender, nondistended. Contact dermatitis along the left lateral incision. Left upper quadrant incision no signs of infection. MUSCULOSKELETAL: No clubbing, cyanosis. Gross strength 5/5 distal lower extremities. NEURO: No focal or lateralizing signs. Cranial nerves 2 through 12 grossly within normal limits. PSYCH: Appropriate affect. Alert and oriented to person, place and time. SKIN: Dry skin turgor. Well perfused. ASSESSMENT: 1. Morbid obesity due to excess calories. 2. Body mass index of 40.6 down to less than 37.9. 3. Osteoarthritis of the knees. 4. Obstructive sleep apnea. 5. Osteoarthritis of the back. 6. Irritable bowel syndrome. 7. Dietary surveillance and counseling. 8. Food ALLERGIES 9. Family history of morbid obesity. 10. Family history of heart disease. 11. Gastroesophageal reflux disease 12. Status post sleeve gastrectomy 13. Epigastric abdominal pain 14. Dysphagia 15. Dehydration PLAN: 1. Recommend IV fluid hydration for an adequate fluid intake. 2. Recommend emergent esophagram to evaluate for stenosis. 3. May benefit from upper endoscopy in the future findings from esophagram is positive for stenosis.
[2017-09-10 09:49] VITALS: RESP 20
[2017-09-10] MEDS: SODIUM CHLORIDE 0.9% 1,000 ML IV SCH ×2 (09:52→10:49)
[2017-09-10 10:00] VITALS: BP 123/71; PULSE 97; TEMP 97.9; BMI 34.9
--- NOTE | 2017-09-10 12:51 | FL ---
EXAMINATION TYPE: FL barium swallow DATE OF EXAM: 09/10/2017 LIMITED UGI: CLINICAL HISTORY: History of gastric bypass surgery August 20 with difficulty swallowing over last 3-4 days TECHNIQUE: Limited esophagram is performed utilizing 20 oz of barium. A total of 58 seconds of fluor oscopic time was utilized during procedure. 23 spot images are saved. COMPARISON: None. FINDINGS: The patient swallowed contrast without difficulty or delay. Esophageal peristalsis and mo tility are within normal limits. There is good flow of contrast along the diaphragmatic hiatus into stomach remnant and subsequent flow into the efferent small bowel loop. Patient remains asymptomatic . There is no evidence of contrast extravasation to suggest leak. Cholecystectomy clips are incidenta lly noted. IMPRESSION: No evidence of leak or significant obstruction status post recent gastric bypass surgery. Images are saved for ordering surgeon.
== END | disposition home or self-care (01) ==
LOC: BARWHC3 09:12
PROVIDERS: ATTEND Surgery Plastic and Reconstructive Surgery
DX: R13.10 Dysphagia, unspecified (principal); R10.13 Epigastric pain; E66.01 Morbid (severe) obesity due to excess calories; E86.0 Dehydration
CPT/HCPCS: 74220; 96360; 96361; 97803; 99211

== ENCOUNTER → 2017-09-12 | Outpatient (CLI) | payer BC ==
--- NOTE | 2017-09-09 15:07 | P.PN ---
Progress Note - Text Progress Note Date: 09/09/17 Patient reports food being stuck after eating food. Recommend upper endoscopy with foreign body removal. Also recommend IV fluid hydration.
[2017-09-12 14:08] VITALS: BP 114/72; PULSE 89; RESP 16; TEMP 98.1; BMI 35.2
--- NOTE | 2017-09-12 15:01 | P.PN ---
Subjective Progress Note Date: 09/12/17 DATE OF SERVICE: 09/12/2017 CHEIF COMPLAINT: Follow sleeve gastrectomy HISTORY OF PRESENT ILLNESS: Dory Short is a 32-year-old female who is status post sleeve gastrectomy 08/20/2017. She is 3 weeks out. Her epigastric abdominal pain is resolved. She is tolerating fluids. She reports rash that is still present along the left lower quadrant incision. At her height of 5 foot 5 inches, her ideal body weight is 149 pounds. Her highest weight was 246 pounds. Today she comes in 211 pounds. She has lost 16 pounds in 2 weeks from her last visit. Her body mass index is reduced from 41.0 down to 35.2. Lifetime weight loss, 35 pounds. Percent excess weight loss is 36%. PHYSICAL EXAM: VITAL SIGNS: Height 5 foot 5 inches, weight 211 pounds. BMI 35.2 Vital Signs Temp 98.1 F 09/12/17 14:04 Pulse 89 09/12/17 14:04 Resp 16 09/12/17 14:04 BP 114/72 09/12/17 14:04 Pulse Ox Intake & Output 09/11/17 09/12/17 09/12/17 18:59 06:59 18:59 Weight 95.963 kg GENERAL: Well-developed in no acute distress. HEENT: No scleral icterus. Extraocular movements grossly intact. Hears conversational speech. No nasal drainage. NECK: Supple without lymphadenopathy. CHEST: Nonlabored respirations with equal bilateral excursions. CARDIOVASCULAR: Regular rate. Regular rhythm. Distal 2+ pulses. ABDOMEN: Obese, soft, nontender, nondistended. Contact dermatitis along the left lateral incision. Left upper quadrant incision no signs of infection. MUSCULOSKELETAL: No clubbing, cyanosis. Gross strength 5/5 distal lower extremities. NEURO: No focal or lateralizing signs. Cranial nerves 2 through 12 grossly within normal limits. PSYCH: Appropriate affect. Alert and oriented to person, place and time. SKIN: Dry skin turgor. Well perfused. ASSESSMENT: 1. Morbid obesity due to excess calories. 2. Body mass index of 41.0 down to 35.2 3. Osteoarthritis of the knees. 4. Obstructive sleep apnea. 5. Osteoarthritis of the back. 6. Irritable bowel syndrome. 7. Dietary surveillance and counseling. 8. Food ALLERGIES 9. Family history of morbid obesity. 10. Family history of heart disease. 11. Gastroesophageal reflux disease 12. Status post sleeve gastrectomy 13. Epigastric abdominal pain, resolved 14. Contact dermatitis. PLAN: 1. Recommend follow-up primary care doctor for contact dermatitis. 2. Continue with adequate fluid intake. 3. Moisturizers reviewed. 4. Get bariatric labs today. Laboratory Last Values WBC 5.5 k/uL (3.8-10.6) 09/12/17 15:11 RBC 4.37 m/uL (3.80-5.40) 09/12/17 15:11 Hgb 12.9 gm/dL (11.4-16.0) 09/12/17 15:11 Hct 38.2 % (34.0-46.0) 09/12/17 15:11 MCV 87.3 fL (80.0-100.0) 09/12/17 15:11 MCH 29.4 pg (25.0-35.0) 09/12/17 15:11 MCHC 33.7 g/dL (31.0-37.0) 09/12/17 15:11 RDW 13.3 % (11.5-15.5) 09/12/17 15:11 Plt Count 365 k/uL (150-450) 09/12/17 15:11 PT 11.4 sec (9.0-12.0) 09/12/17 15:11 INR 1.2 (<1.2) H 09/12/17 15:11 APTT 25.3 sec (22.0-30.0) 09/12/17 15:11 Sodium 144 mmol/L (137-145) 09/12/17 15:11 Potassium 3.7 mmol/L (3.5-5.1) 09/12/17 15:11 Chloride 105 mmol/L (98-107) 09/12/17 15:11 Carbon Dioxide 20 mmol/L (22-30) L 09/12/17 15:11 Anion Gap 19 mmol/L 09/12/17 15:11 BUN 10 mg/dL (7-17) 09/12/17 15:11 Creatinine 0.50 mg/dL (0.52-1.04) L 09/12/17 15:11 Est GFR (CKD-EPI)AfAm >90 (>60 ml/min/1.73 sqM) 09/12/17 15:11 Est GFR (CKD-EPI)NonAf >90 (>60 ml/min/1.73 sqM) 09/12/17 15:11 Glucose 73 mg/dL (74-99) L 09/12/17 15:[address] Glu mg/dL 91 09/12/17 15:11 Hemoglobin A1c 4.8 % (4.0-6.0) 09/12/17 15:11 Calcium 9.5 mg/dL (8.4-10.2) 09/12/17 15:11 Phosphorus 3.5 mg/dL (2.5-4.5) 09/12/17 15:11 Magnesium 1.6 mg/dL (1.6-2.3) 09/12/17 15:11 Iron 55 ug/dL (50-170) 09/12/17 15:11 TIBC 284 ug/dL (228-460) 09/12/17 15:11 Iron Saturation 19.37 (12.00-45.00) 09/12/17 15:11 Ferritin 119.7 ng/mL (10.0-291.0) 09/12/17 15:11 Total Bilirubin 0.5 mg/dL (0.2-1.3) 09/12/17 15:11 AST 33 U/L (14-36) 09/12/17 15:11 ALT 46 U/L (9-52) 09/12/17 15:11 Alkaline Phosphatase 138 U/L (38-126) H 09/12/17 15:11 Total Protein 7.3 g/dL (6.3-8.2) 09/12/17 15:11 Albumin 4.3 g/dL (3.5-5.0) 09/12/17 15:11 Prealbumin 19.0 mg/dL (18.0-42.0) 09/12/17 15:11 Triglycerides 83 mg/dL (<150) 09/12/17 15:11 Cholesterol 123 mg/dL (<200) 09/12/17 15:11 LDL Cholesterol, Calc 67 mg/dL (0-99) 09/12/17 15:11 HDL Cholesterol 39 mg/dL (40-60) L 09/12/17 15:11 Vitamin A 27 ug/dL (38-106) L 09/12/17 15:11 Vitamin B1 42 ug/L (38-122) 09/12/17 15:11 Vitamin B12 627.0 pg/mL (200.0-944.0) 09/12/17 15:11 Vitamin D 25-Hydroxy 36.2 ng/mL (30.0-100.0) 09/12/17 15:11 Folate 16.9 ng/mL 09/12/17 15:11 TSH 0.900 mIU/L (0.465-4.680) 09/12/17 15:11 PTH Intact 29.7 pg/mL (14.0-72.0) 09/12/17 15:11 Copper 1360 ug/L (810-1990) 09/12/17 15:11 Selenium 153 mcg/L (63-160) 09/12/17 15:11 Zinc 108 ug/dL (60-130) 09/12/17 15:11 Glucose is low. Vitamin A low. HDL low Objective - Vital Signs Vital signs: Vital Signs Temp 98.1 F 09/12/17 14:04 Pulse 89 09/12/17 14:04 Resp 16 09/12/17 14:04 BP 114/72 09/12/17 14:04 Pulse Ox Intake & Output 09/11/17 09/12/17 09/12/17 18:59 06:59 18:59 Weight 95.963 kg - Labs CBC & Chem 7: 09/12/17 15:11 09/12/17 15:11
[2017-09-12 15:43] LABS: HCT 38.2 % (34.0-46.0); HGB 12.9 gm/dL (11.4-16.0); MCH 29.4 pg (25.0-35.0); MCHC 33.7 g/dL (31.0-37.0); MCV 87.3 fL (80.0-100.0); Mean Platelet Volume 7.8; Platelet Count 365 k/uL (150-450); RBC 4.37 m/uL (3.80-5.40); RDW 13.3 % (11.5-15.5); WBC 5.5 k/uL (3.8-10.6)
[2017-09-12 15:52] LABS: INR 1.2 (<1.2); Partial Thromboplastin Time 25.3 sec (22.0-30.0); Prothrombin Time 11.4 sec (9.0-12.0)
[2017-09-12 16:08] LABS: ALT 46 U/L (9-52); AST 33 U/L (14-36); Albumin 4.3 g/dL (3.5-5.0); Alkaline Phosphatase 138 U/L (38-126); Anion Gap 19 mmol/L; Blood Urea Nitrogen 10 mg/dL (7-17); Calcium 9.5 mg/dL (8.4-10.2); Carbon Dioxide 20 mmol/L (22-30); Chloride 105 mmol/L (98-107); Cholesterol 123 mg/dL (<200); Glucose 73 mg/dL (74-99); HDL Cholesterol 39 mg/dL (40-60); LDL Cholesterol,Calculated 67 mg/dL (0-99); Magnesium 1.6 mg/dL (1.6-2.3); Phosphorus 3.5 mg/dL (2.5-4.5); Potassium 3.7 mmol/L (3.5-5.1); Sodium 144 mmol/L (137-145); Total Bilirubin 0.5 mg/dL (0.2-1.3); Total Protein 7.3 g/dL (6.3-8.2); Triglycerides 83 mg/dL (<150)
[2017-09-12 19:11] LABS: Iron Saturation 19.37 (12.00-45.00)
[2017-09-12 19:19] LABS: Vitamin D 25 Hydroxy 36.2 ng/mL (30.0-100.0)
[2017-09-12 19:27] LABS: Parathyroid Hormone Intact 29.7 pg/mL (14.0-72.0)
[2017-09-12 19:49] LABS: Folate, Serum 16.9 ng/mL
[2017-09-12 19:51] LABS: Hemoglobin A1C 4.8 % (4.0-6.0)
[2017-09-13 11:25] LABS: Zinc, Serum 108 ug/dL (60-130)
[2017-09-14 07:42] LABS: Vitamin A 27 ug/dL (38-106)
[2017-09-14 15:22] LABS: Vitamin B1 42 ug/L (38-122)
[2017-09-14 17:17] LABS: Selenium 153 mcg/L (63-160)
== END | disposition home or self-care (01) ==
LOC: BARWHC3 13:39
PROVIDERS: ATTEND Surgery Plastic and Reconstructive Surgery
DX: Z09 Encounter for follow-up examination after completed treatment for conditions other than malignant neoplasm (principal); E66.01 Morbid (severe) obesity due to excess calories; K21.9 Gastro-esophageal reflux disease without esophagitis; E21.1 Secondary hyperparathyroidism, not elsewhere classified; E55.9 Vitamin D deficiency, unspecified; N19 Unspecified kidney failure; K74.1 Hepatic sclerosis; K90.9 Intestinal malabsorption, unspecified; D50.9 Iron deficiency anemia, unspecified; M17.0 Bilateral primary osteoarthritis of knee; G47.33 Obstructive sleep apnea (adult) (pediatric); K58.9 Irritable bowel syndrome, unspecified; M47.9 Spondylosis, unspecified; L25.8 Unspecified contact dermatitis due to other agents; Z71.3 Dietary counseling and surveillance; Z91.018 Allergy to other foods; Z83.49 Family history of other endocrine, nutritional and metabolic diseases; Z68.35 Body mass index [BMI] 35.0-35.9, adult; Z98.84 Bariatric surgery status; Z82.49 Family history of ischemic heart disease and other diseases of the circulatory system
CPT/HCPCS: 36415; 80053; 80061; 82306; 82525; 82607; 82728; 82746; 83036; 83540; 83550; 83735; 83970; 84100; 84134; 84255; 84425; 84443; 84590; 84630; 85027; 85610; 85730; 99211

== ENCOUNTER → 2017-10-03 | Outpatient (CLI) | payer BC ==
--- NOTE | 2017-10-03 14:51 | P.PN ---
Subjective Progress Note Date: 10/03/17 DATE OF SERVICE: 10/03/2017 CHEIF COMPLAINT: Follow sleeve gastrectomy HISTORY OF PRESENT ILLNESS: Dory Short is a 32-year-old female who is status post sleeve gastrectomy 08/20/2017. She is 1 month out. She comes in with dehydration. She is happy with her weight loss. Last weight of 212 pounds on 09/12/17. Now she is 200 pounds. She reports left lower rib pain and left shoulder pain. No fevers or chills. No palpitation. She had contact dermatitis that is now completely resolved. At her height of 5 foot 5 inches, her ideal body weight is 149 pounds. Her highest weight was 246 pounds. Today she comes in 200 pounds from 212 pounds. She has lost 12 pounds in 3 weeks from her last visit. Her body mass index is reduced from 41.0 down to 33.3. Lifetime weight loss, 46 pounds. Percent excess weight loss is 48%. PHYSICAL EXAM: VITAL SIGNS: Height 5 foot 5 inches, weight 200 pounds. BMI 33.3 GENERAL: Well-developed in no acute distress. HEENT: No scleral icterus. Extraocular movements grossly intact. Hears conversational speech. No nasal drainage. NECK: Supple without lymphadenopathy. CHEST: Nonlabored respirations with equal bilateral excursions. CARDIOVASCULAR: Regular rate. Regular rhythm. Distal 2+ pulses. ABDOMEN: Obese, soft, nontender, nondistended. Contact dermatitis along the left lateral incision. Left upper quadrant incision no signs of infection. MUSCULOSKELETAL: No clubbing, cyanosis. Gross strength 5/5 distal lower extremities. NEURO: No focal or lateralizing signs. Cranial nerves 2 through 12 grossly within normal limits. PSYCH: Appropriate affect. Alert and oriented to person, place and time. SKIN: Dry skin turgor. Well perfused. Laboratory Last Values WBC 5.5 k/uL (3.8-10.6) 09/12/17 15:11 RBC 4.37 m/uL (3.80-5.40) 09/12/17 15:11 Hgb 12.9 gm/dL (11.4-16.0) 09/12/17 15:11 Hct 38.2 % (34.0-46.0) 09/12/17 15:11 MCV 87.3 fL (80.0-100.0) 09/12/17 15:11 MCH 29.4 pg (25.0-35.0) 09/12/17 15:11 MCHC 33.7 g/dL (31.0-37.0) 09/12/17 15:11 RDW 13.3 % (11.5-15.5) 09/12/17 15:11 Plt Count 365 k/uL (150-450) 09/12/17 15:11 PT 11.4 sec (9.0-12.0) 09/12/17 15:11 INR 1.2 (<1.2) H 09/12/17 15:11 APTT 25.3 sec (22.0-30.0) 09/12/17 15:11 Sodium 144 mmol/L (137-145) 09/12/17 15:11 Potassium 3.7 mmol/L (3.5-5.1) 09/12/17 15:11 Chloride 105 mmol/L (98-107) 09/12/17 15:11 Carbon Dioxide 20 mmol/L (22-30) L 09/12/17 15:11 Anion Gap 19 mmol/L 09/12/17 15:11 BUN 10 mg/dL (7-17) 09/12/17 15:11 Creatinine 0.50 mg/dL (0.52-1.04) L 09/12/17 15:11 Est GFR (CKD-EPI)AfAm >90 (>60 ml/min/1.73 sqM) 09/12/17 15:11 Est GFR (CKD-EPI)NonAf >90 (>60 ml/min/1.73 sqM) 09/12/17 15:11 Glucose 73 mg/dL (74-99) L 09/12/17 15:[address] Glu mg/dL 91 09/12/17 15:11 Hemoglobin A1c 4.8 % (4.0-6.0) 09/12/17 15:11 Calcium 9.5 mg/dL (8.4-10.2) 09/12/17 15:11 Phosphorus 3.5 mg/dL (2.5-4.5) 09/12/17 15:11 Magnesium 1.6 mg/dL (1.6-2.3) 09/12/17 15:11 Iron 55 ug/dL (50-170) 09/12/17 15:11 TIBC 284 ug/dL (228-460) 09/12/17 15:11 Iron Saturation 19.37 (12.00-45.00) 09/12/17 15:11 Ferritin 119.7 ng/mL (10.0-291.0) 09/12/17 15:11 Total Bilirubin 0.5 mg/dL (0.2-1.3) 09/12/17 15:11 AST 33 U/L (14-36) 09/12/17 15:11 ALT 46 U/L (9-52) 09/12/17 15:11 Alkaline Phosphatase 138 U/L (38-126) H 09/12/17 15:11 Total Protein 7.3 g/dL (6.3-8.2) 09/12/17 15:11 Albumin 4.3 g/dL (3.5-5.0) 09/12/17 15:11 Prealbumin 19.0 mg/dL (18.0-42.0) 09/12/17 15:11 Triglycerides 83 mg/dL (<150) 09/12/17 15:11 Cholesterol 123 mg/dL (<200) 09/12/17 15:11 LDL Cholesterol, Calc 67 mg/dL (0-99) 09/12/17 15:11 HDL Cholesterol 39 mg/dL (40-60) L 09/12/17 15:11 Vitamin A 27 ug/dL (38-106) L 09/12/17 15:11 Vitamin B1 42 ug/L (38-122) 09/12/17 15:11 Vitamin B12 627.0 pg/mL (200.0-944.0) 09/12/17 15:11 Vitamin D 25-Hydroxy 36.2 ng/mL (30.0-100.0) 09/12/17 15:11 Folate 16.9 ng/mL 09/12/17 15:11 TSH 0.900 mIU/L (0.465-4.680) 09/12/17 15:11 PTH Intact 29.7 pg/mL (14.0-72.0) 09/12/17 15:11 Copper 1360 ug/L (810-1990) 09/12/17 15:11 Selenium 153 mcg/L (63-160) 09/12/17 15:11 Zinc 108 ug/dL (60-130) 09/12/17 15:11 Glucose is low. Vitamin A low. HDL low ASSESSMENT: 1. Morbid obesity due to excess calories. 2. Body mass index of 41.0 down to 35.2 3. Osteoarthritis of the knees. 4. Obstructive sleep apnea. 5. Osteoarthritis of the back. 6. Irritable bowel syndrome. 7. Dietary surveillance and counseling. 8. Food ALLERGIES 9. Family history of morbid obesity. 10. Family history of heart disease. 11. Gastroesophageal reflux disease 12. Status post sleeve gastrectomy 13. Contact dermatitis. 14. Dehydration. 15. Vitamin D deficiency. 16. Pleurisy. 17. Constipation PLAN: 1. Recommend fluid IV hydration. 2. Labs reviewed. 3. Vitamin A supplement. 4. November 2017 follow up pending. 5. Recommend chest Xray for evaluation of pleurisy. 6. She reports constipation and recommend stool softeners
[2017-10-03 15:08] VITALS: BMI 33.3
--- NOTE | 2017-10-03 15:37 | XR ---
EXAMINATION TYPE: XR chest 2V DATE OF EXAM: 10/03/2017 COMPARISON: NONE HISTORY: Left-sided chest pain, shortness of breath, morbid obesity TECHNIQUE: Frontal and lateral views of the chest are obtained. FINDINGS: There is no focal air space opacity, pleural effusion, or pneumothorax seen. The cardiac silhouette size is within normal limits. The osseous structures are intact. IMPRESSION: No acute cardiopulmonary process.
== END | disposition home or self-care (01) ==
LOC: BARWHC3 14:07
PROVIDERS: ATTEND Surgery Plastic and Reconstructive Surgery
DX: Z48.89 Encounter for other specified surgical aftercare (principal); E66.01 Morbid (severe) obesity due to excess calories; Z98.84 Bariatric surgery status; Z68.33 Body mass index [BMI] 33.0-33.9, adult; E55.9 Vitamin D deficiency, unspecified; E86.0 Dehydration; G47.33 Obstructive sleep apnea (adult) (pediatric); K21.9 Gastro-esophageal reflux disease without esophagitis; K58.9 Irritable bowel syndrome, unspecified; L25.9 Unspecified contact dermatitis, unspecified cause; M17.0 Bilateral primary osteoarthritis of knee; R09.1 Pleurisy
CPT/HCPCS: 71046; 97803; 99211

== ENCOUNTER → 2017-10-17 | Outpatient (CLI) | payer BC ==
[2017-10-17 12:53] VITALS: BP 123/83; PULSE 93; RESP 16; TEMP 97.6
[2017-10-17] MEDS: SODIUM CHLORIDE 0.9% 1,000 ML IV SCH ×2 (13:00→14:00)
== END ==
LOC: PROCWHC3 12:41
PROVIDERS: ATTEND Surgery Plastic and Reconstructive Surgery
DX: E86.0 Dehydration (principal)
CPT/HCPCS: 96360; 96361

== ENCOUNTER → 2017-11-21 | Outpatient (CLI) | payer BC ==
[2017-11-21 13:14] VITALS: BP 112/78; PULSE 80; RESP 16; TEMP 98.4; BMI 30.7
--- NOTE | 2017-11-21 13:15 | P.PN ---
Subjective Progress Note Date: 11/21/17 HPI: She is doing well. No issues. She did have body imaging issues. No nausea or vomiting. She is 3 months out. Has some vomiting from eating tough foods. She reports easy bruising. PLAN: 1. She ate to big of a bite. Food portions described. 2. Get labs today. 3. She has more energy. 4. Follow up in 3 months.
[2017-11-21 14:56] LABS: HGB 12.3 gm/dL (11.4-16.0); MCHC 33.3 g/dL (31.0-37.0); Mean Platelet Volume 6.7; Platelet Count 285 k/uL (150-450); RBC 4.11 m/uL (3.80-5.40); RDW 13.6 % (11.5-15.5); WBC 6.8 k/uL (3.8-10.6)
[2017-11-21 15:04] LABS: INR 1.1 (<1.2); Partial Thromboplastin Time 24.8 sec (22.0-30.0); Prothrombin Time 10.7 sec (9.0-12.0)
[2017-11-21 15:26] LABS: ALT 33 U/L (9-52); AST 25 U/L (14-36); Alkaline Phosphatase 94 U/L (38-126); Anion Gap 14 mmol/L; Blood Urea Nitrogen 7 mg/dL (7-17); Calcium 9.1 mg/dL (8.4-10.2); Carbon Dioxide 25 mmol/L (22-30); Chloride 104 mmol/L (98-107); Cholesterol 155 mg/dL (<200); Glucose 81 mg/dL (74-99); HDL Cholesterol 45 mg/dL (40-60); LDL Cholesterol,Calculated 93 mg/dL (0-99); Magnesium 1.8 mg/dL (1.6-2.3); Phosphorus 2.4 mg/dL (2.5-4.5); Potassium 3.1 mmol/L (3.5-5.1); Sodium 143 mmol/L (137-145); Total Bilirubin 0.5 mg/dL (0.2-1.3); Triglycerides 83 mg/dL (<150)
[2017-11-21 20:01] LABS: Parathyroid Hormone Intact 42.8 pg/mL (14.0-72.0)
[2017-11-21 20:11] LABS: Folate, Serum 9.1 ng/mL; Vitamin D 25 Hydroxy 38.5 ng/mL (30.0-100.0)
[2017-11-21 20:21] LABS: Iron Saturation 36.76 (12.00-45.00)
[2017-11-21 22:50] LABS: Hemoglobin A1C 4.7 % (4.0-6.0)
[2017-11-22 12:03] LABS: Zinc, Serum 83 ug/dL (60-130)
[2017-11-23 05:59] LABS: Vitamin A 29 ug/dL (38-106)
[2017-11-23 12:08] LABS: Vitamin B1 50 ug/L (38-122)
[2017-11-23 17:26] LABS: Selenium 134 mcg/L (63-160)
== END | disposition home or self-care (01) ==
LOC: BARWHC3 12:51
PROVIDERS: ATTEND Surgery Plastic and Reconstructive Surgery
DX: E66.01 Morbid (severe) obesity due to excess calories (principal); E21.1 Secondary hyperparathyroidism, not elsewhere classified; D50.9 Iron deficiency anemia, unspecified; K90.9 Intestinal malabsorption, unspecified; E44.0 Moderate protein-calorie malnutrition; E55.9 Vitamin D deficiency, unspecified; K74.1 Hepatic sclerosis; N19 Unspecified kidney failure; K50.90 Crohn's disease, unspecified, without complications
CPT/HCPCS: 36415; 80053; 80061; 82306; 82525; 82607; 82728; 82746; 83036; 83540; 83550; 83735; 83970; 84100; 84134; 84255; 84425; 84443; 84590; 84630; 85027; 85610; 85730; 97803; 99211

== ENCOUNTER → 2017-12-28 | Outpatient (CLI) | payer BC ==
--- NOTE | 2017-12-28 13:58 | XR ---
EXAMINATION TYPE: XR chest 2V DATE OF EXAM: 12/28/2017 COMPARISON: 10/03/2017 TECHNIQUE: PA and lateral views submitted. HISTORY: Preop FINDINGS: The lungs are clear and there is no pneumothorax, pleural effusion, or focal pneumonia. Surgical cl ips in the abdomen. No overt failure. IMPRESSION: 1. No acute process.
[2017-12-28 14:08] LABS: Basophils % (A) 0 %; Eosinophils # (A) 0.1 k/uL (0-0.7); Eosinophils % (A) 1 %; HCT 40.3 % (34.0-46.0); HGB 13.5 gm/dL (11.4-16.0); Lymphocytes % (A) 28 %; MCH 29.3 pg (25.0-35.0); MCHC 33.5 g/dL (31.0-37.0); MCV 87.4 fL (80.0-100.0); Mean Platelet Volume 7.2; Monocytes # (A) 0.4 k/uL (0-1.0); Monocytes % (A) 5 %; Neutrophils # (A) 4.7 k/uL (1.3-7.7); Neutrophils % (A) 65 %; Platelet Count 301 k/uL (150-450); RBC 4.61 m/uL (3.80-5.40); RDW 13.7 % (11.5-15.5); WBC 7.2 k/uL (3.8-10.6)
[2017-12-28 14:16] LABS: INR 1.1 (<1.2); Partial Thromboplastin Time 25.7 sec (22.0-30.0); Prothrombin Time 10.9 sec (9.0-12.0)
[2017-12-28 14:17] LABS: Appearance,Urine Cloudy (Clear); Bacteria,Urine Rare /hpf; Bilirubin,Urine Negative (Negative); Blood,Urine Negative (Negative); Calcium Oxalate Crystals,Urine Occasional /hpf; Color,Urine Yellow; Glucose,Urine (UA) Negative (Negative); Ketones,Urine 4+ (Negative); Leukocyte Esterase,Urine Negative (Negative); Mucus,Urine Many /hpf; Nitrite,Urine Negative (Negative); PH, Urine 6.5 (5.0-8.0); Protein,Urine 1+ (Negative); RBC,Urine 36 /hpf (0-5); Specific Gravity,Urine 1.028 (1.001-1.035); Squamous Epithelial Cell,Urine 4 /hpf (0-4); WBC,Urine 1 /hpf (0-5)
[2017-12-28 14:22] LABS: Anion Gap 13 mmol/L; Blood Urea Nitrogen 10 mg/dL (7-17); Calcium 9.3 mg/dL (8.4-10.2); Carbon Dioxide 26 mmol/L (22-30); Chloride 102 mmol/L (98-107); Glucose 75 mg/dL (74-99); Potassium 3.2 mmol/L (3.5-5.1); Sodium 141 mmol/L (137-145)
== END | disposition home or self-care (01) ==
LOC: LABPAT 13:08
PROVIDERS: ATTEND Orthopaedic Surgery Orthopaedic Surgery of the Spine
DX: Z01.818 Encounter for other preprocedural examination (principal)
CPT/HCPCS: 36415; 71046; 80048; 81001; 85025; 85610; 85730; 87070

== ENCOUNTER 2018-01-07 10:53 | Day surgery (SDC) | payer BC ==
[2018-01-03 08:41] VITALS: BMI 27.9
[~2018-01-07 10:53] MED LIST changes: +DEXAMETHASONE SOD PHOSPHATE 10 MG/ML 1 ML VIAL IV ONE; -LIDOCAINE 1% 20 ML VIAL (10MG/ML) FOR IV START INTRADERMA PRN; +ONDANSETRON 4 MG/2 ML VIAL IVP ONE; +SCOPOLAMINE 1.5MG/72HR PATCH TRANSDERM ONE; +SODIUM CHLORIDE 0.9% IRRIGATIO 1,000 ML IRRIGATION ONE; +ceFAZolin IN SWFI 2 GM/20 ML SYRINGE IVP ONE; +fentaNYL (PF) 50 MCG/ML 20 ML VIAL IVP PRN
[2018-01-07] MEDS ORDERED: LIDOCAINE 1% 20 ML VIAL (10MG/ML) FOR IV START INTRADERMA ONE (12:03)
[2018-01-07] MEDS ORDERED: POTASSIUM CHLORIDE 20 MEQ in WATER FOR INJECTION 1 100ML.BAG IVPB STA (12:21)
[2018-01-07] MEDS ORDERED: PHENYLEPHRINE-0.9% NACL SYG 1 MG/10 ML SYRINGE ONE (13:04)
[2018-01-07] MEDS ORDERED: ROCURONIUM BROMIDE 10 MG/ML 10 ML VIAL IV ONE (13:04)
[2018-01-07] MEDS ORDERED: SUCCINYLCHOLINE CHLORIDE 100 MG/5 ML SYR IV ONE (13:04)
[2018-01-07] MEDS ORDERED: GLYCOPYRROLATE 0.2 MG/ML 2 ML VIAL ONE (13:04)
[2018-01-07] MEDS ORDERED: LIDOCAINE 1% INJ 10MG/ML (20 ML MDV) ONE (13:04)
[2018-01-07] MEDS ORDERED: MIDAZOLAM 2 MG/2 ML VIAL ONE (13:04)
[2018-01-07] MEDS ORDERED: fentaNYL (PF) 50 MCG/ML 2 ML AMP ONE (13:04)
[2018-01-07] MEDS ORDERED: NEOSTIGMINE 1 MG/ML 10 ML VIAL ONE (13:04)
[2018-01-07] MEDS ORDERED: PROPOFOL 10 MG/ML 20 ML VIAL IV ONE (13:04)
[2018-01-07] MEDS ORDERED: LIDOCAINE 0.5%-EPI 1:200,000 50 ML VIAL SQ ONE ×2 (13:19)
[2018-01-07] MEDS ORDERED: GELATIN SPONGE,ABSORB (LARGE) 1 EACH SPONGE MISCELLANE ONE (13:22)
[2018-01-07] MEDS ORDERED: THROMBIN (BOVINE) 5,000 UNIT VIAL MISCELLANE ONE (13:22)
[2018-01-07] MEDS ORDERED: methylPREDNISolone ACETATE 40 MG/ML 1 ML VIAL MISCELLANE ONE (13:49)
[2018-01-07] MEDS ORDERED: LACTATED RINGERS 1,000 ML IV ONE (14:05)
[2018-01-07] MEDS ORDERED: IBUPROFEN 600 MG TAB PO PRN (14:19)
[2018-01-07] MEDS ORDERED: ONDANSETRON 4 MG/2 ML VIAL IVP ONE (14:19)
[2018-01-07] MEDS ORDERED: KETOROLAC 30 MG/ML 1 ML VIAL IVP PRN (14:19)
[2018-01-07] MEDS ORDERED: HYDROmorphone 1 MG/ML 1 ML SYRINGE IVP PRN ×2 (14:19)
[2018-01-07] MEDS ORDERED: HYDROcodone/APAP 5-325MG 1 EACH TAB PO PRN ×2 (14:19)
[2018-01-07] MEDS ORDERED: BENZOCAINE/MENTHOL LOZENG 1 EACH LOZENGE MUCOUS MEM PRN (14:19)
--- NOTE | 2018-01-07 14:19 | P.OP ---
Date of Procedure: 01/07/18 Preoperative Diagnosis: Herniated nucleus pulposis L5-S1 Left lower extremity radiculopathy Left lower extremity weakness Postoperative Diagnosis: Same Anesthesia: GETA Pathology: none sent Condition: stable Disposition: PACU Description of Procedure: BRIEF OPERATIVE NOTE Preoperative Diagnosis:Herniated nucleus pulposis L5-S1 Left lower extremity radiculopathy Left lower extremity weakness Postoperative Diagnosis: Same Procedure: Laminectomy and decompression L5-S1 Discectomy for decompression L5-S1 Use of fluoroscopic guidance Surgeon: Dr. Wise Galvanizing Pot Runner: Willi Iverson is present throughout the entire the case persistence during positioning, dissection, exposure, visualization, and all crucial elements of the case as well as closure. Anesthesia: General anesthesia per Dr. Mitchell Estimated blood loss: Approximately 50 mL Complications: None apparent Components implanted: None Disposition: To recovery room in good stable condition. OPERATIVE INDICATIONS The patient has been having issues in their lower back and lower extremities. She was found have a very large disc herniation L5-S1 with extruded fragment. These findings correlated well with her low back and lower extremity pain with radiculopathy and weakness in her left lower extremity. The patient has been through conservative treatment. She is not having any significant benefit despite aggressive conservative treatment. We discussed various treatment options including surgery, and the patient wishes to proceed with surgery We discussed the risk, patient's alternatives and benefits of surgery including but not limited to, risk of bleeding risk of infection, risk of need for further surgery, risk of decreased, loss of motion, loss of function, nerve damage, paralysis, heart attack, blindness and . OPERATIVE SUMMARY After discussing all the risks, patient alternatives and benefits at length, the patient elected to proceed with surgical intervention, signed informed consent, and presented for their procedure of laminectomy and discectomy at L5- S1. The patient was seen and examined in the preoperative holding area and the surgical site was marked. The patient was given antibiotics and brought to the operating room. The patient was sedated and intubated by anesthesia in standard fashion. The patient was positioned on to the operating room table in a prone position on the appropriate frame which was well-padded and well molded. We were careful to pad any bony prominences and pressure points. We were careful to maintain the patient's cervical spine and good neutral alignment and position throughout. The patient was prepped and draped in a normal standard fashion. An appropriate timeout and keystone protocol performed. We were able to proceed with the surgery. Fluoroscopy was utilized to establish the appropriate level at L5-S1. The local wound area was infiltrated with local anesthetic. An incision was made at the midline longitudinally over the appropriate levels approximately 2-1/2 cm at L5-S1. Dissection was taken down subcutaneously to the level of the fascia which was split midline. Dissection was taken over the lamina. Intraoperative fluoroscopy was taken which showed a marker at the appropriate level and L5-S1. With the appropriate level positively confirmed, we were able to proceed with laminectomy. The wound was copiously irrigated and suctioned dry as had been done periodically throughout the case. I performed a laminectomy with a combination of curettes and a high-speed bur and Kerrison rongeurs. A small medial facetectomy was performed again further access. A partial foraminotomy was also performed. Portions of the ligamentum flavum were taken down to expose the dura and traversing nerve root. I was able to mobilize the traversing nerve root and gain access to the disc space. Note was made of obvious compression from the disc. There is very large extruded disc fragments, essentially massive disc herniations and extruded fragments which I was able to mobilize and remove at the epidural space from the L5-S1 disc. Protecting the soft tissue structures, a small annulotomy was established. I was able to perform discectomy and remove any extruded disc fragments and any loose fragments from within the disc itself. There is further loose disc fragments within the disc which were removed as well. I was able get excellent decompression at the nerve root. There is some disc desiccation noted. I tried to preserve the disc annulus that appeared stable. There were no further extruded fragments noted. There is no evidence of dural tear or leak. Good hemostasis maintained. The wound was copiously irrigated and suctioned dry. Good decompression and discectomy was noted. We were able to proceed with closure. The fascia was closed for a watertight closure. The subcuticular tissue was closed with absorbable suture. The wound was cleaned and dried and dressed with the appropriate dressing. The drapes were broken down. The patient was gently rolled back onto their hospital bed being careful to maintain their cervical spine and good neutral alignment and position. They were woken up by anesthesia, extubated, and brought to the recovery room in good stable condition. The patient will be admitted to the hospital for observation and for appropriate postoperative care, medical management and monitoring. We will continue to follow them closely about the postoperative course.
[2018-01-07] MEDS ORDERED: SODIUM CHLORIDE 0.9% 1,000 ML IV SCH (14:30)
[2018-01-07] MEDS ORDERED: IV FLUID CONTINUATION 1,000 ML IV ONE (14:35)
[2018-01-07] MEDS ORDERED: HYDROmorphone 1 MG/ML 1 ML SYRINGE IVP ONE ×2 (14:43→14:52)
[2018-01-07 14:46] VITALS: TEMP 96.9
[2018-01-07] MEDS: fentaNYL (PF) 50 MCG/ML 2 ML AMP IV PRN ×2 (14:58→15:09)
[2018-01-07 15:03] VITALS: BP 108/67; PULSE 87; RESP 16
[2018-01-07] MEDS ORDERED: ONDANSETRON 4 MG/2 ML VIAL IVP PRN (15:50)
[2018-01-07] MEDS ORDERED: SIMETHICONE 40 MG/0.6 ML DROPS 2,000 MG/30 ML BOTTLE PO SCH (16:00)
--- NOTE | 2018-01-07 17:00 | FL ---
Fluoroscopy HISTORY: Lumbar laminectomy 2 seconds fluoroscopy time supplied to the referring clinician. 1 intraoperative C-arm images docume nt the procedure. See dictated report from orthopedic surgery.
--- NOTE | 2018-01-07 17:00 | XR ---
Limited lumbar spine HISTORY: Lumbar laminectomy Single intraoperative C-arm image documents the procedure
[2018-01-07] MEDS ORDERED: PANTOPRAZOLE 40 MG TABLET PO SCH (17:30)
[2018-01-07] MEDS ORDERED: ceFAZolin IN SWFI 2 GM/20 ML SYRINGE IVP SCH (21:00)
[2018-01-08] MEDS ORDERED: MULTIVITAMINS, THERA 1 EACH TAB PO SCH (12:00)
[2018-01-08] MEDS ORDERED: CALCIUM CARBONATE 500 MG CHEWABLE PO SCH (12:00)
[2018-01-08] MEDS ORDERED: FERROUS SULFATE 325 MG TAB PO SCH (12:00)
[2018-01-08] MEDS ORDERED: VITAMIN A 10,000 UNIT CAPSULE PO SCH (12:00)
== END 2018-01-07 19:34 | disposition home or self-care (01) ==
LOC: OR 10:53 → 5MS5E 14:13 → OR 19:34
PROVIDERS: ATTEND Orthopaedic Surgery Orthopaedic Surgery of the Spine
DX: M51.17 Intervertebral disc disorders with radiculopathy, lumbosacral region (principal); Z79.891 Long term (current) use of opiate analgesic; Z79.899 Other long term (current) drug therapy; Z88.0 Allergy status to penicillin; Z98.84 Bariatric surgery status; Z97.5 Presence of (intrauterine) contraceptive device; K21.9 Gastro-esophageal reflux disease without esophagitis; F41.9 Anxiety disorder, unspecified; E03.9 Hypothyroidism, unspecified; E66.9 Obesity, unspecified; Z68.28 Body mass index [BMI] 28.0-28.9, adult
CPT/HCPCS: 81025; 84132; 72020; 63030; J2250; J1030; J2710; J3480; J2405; J2001; J3010; J1170; J2370; J0330; J2704; J0690

== ENCOUNTER → 2018-02-20 | Outpatient (CLI) | payer BC ==
--- NOTE | 2018-02-20 14:30 | P.PN ---
Subjective Progress Note Date: 02/20/18 HPI: She is doing great. She has emotional support. She had recent back surgery for sciatica. She has just started having heartburn following her surgery. Has problems with solid foods. ABDOMEN: Unremarkable PLAN: 1. Blood work advised. 2. She is doing very well. 3. Upper endoscopy for dysphagia
[2018-02-20 16:10] LABS: HCT 37.5 % (34.0-46.0); HGB 12.3 gm/dL (11.4-16.0); MCH 30.2 pg (25.0-35.0); MCHC 32.9 g/dL (31.0-37.0); MCV 91.9 fL (80.0-100.0); Mean Platelet Volume 6.8; Platelet Count 312 k/uL (150-450); RBC 4.08 m/uL (3.80-5.40); RDW 13.7 % (11.5-15.5); WBC 6.7 k/uL (3.8-10.6)
[2018-02-20 16:18] LABS: INR 1.1 (<1.2); Partial Thromboplastin Time 24.7 sec (22.0-30.0); Prothrombin Time 10.6 sec (9.0-12.0)
[2018-02-20 16:40] LABS: ALT 50 U/L (9-52); AST 39 U/L (14-36); Albumin 4.2 g/dL (3.5-5.0); Alkaline Phosphatase 128 U/L (38-126); Anion Gap 10 mmol/L; Blood Urea Nitrogen 10 mg/dL (7-17); Calcium 9.6 mg/dL (8.4-10.2); Carbon Dioxide 26 mmol/L (22-30); Chloride 105 mmol/L (98-107); Cholesterol 156 mg/dL (<200); Glucose 81 mg/dL (74-99); HDL Cholesterol 40 mg/dL (40-60); LDL Cholesterol,Calculated 100 mg/dL (0-99); Potassium 3.5 mmol/L (3.5-5.1); Sodium 141 mmol/L (137-145); Total Bilirubin 0.5 mg/dL (0.2-1.3); Total Protein 7.4 g/dL (6.3-8.2); Triglycerides 79 mg/dL (<150)
[2018-02-20 16:56] VITALS: BMI 26.7
[2018-02-20 17:29] VITALS: BP 97/64; PULSE 77; TEMP 98.2
[2018-02-21 03:45] LABS: Iron Saturation 24.64 (12.00-45.00)
[2018-02-21 03:53] LABS: Vitamin D 25 Hydroxy 52.6 ng/mL (30.0-100.0)
[2018-02-21 03:55] LABS: Parathyroid Hormone Intact 31.8 pg/mL (14.0-72.0)
[2018-02-21 03:58] LABS: Folate, Serum 9.9 ng/mL
[2018-02-21 05:18] LABS: Hemoglobin A1C 4.9 % (4.0-6.0)
[2018-02-21 14:26] LABS: Zinc, Serum 89 ug/dL (60-130)
[2018-02-22 08:01] LABS: Vitamin A 30 ug/dL (38-106)
[2018-02-22 13:40] LABS: Vitamin B1 55 ug/L (38-122)
== END | disposition home or self-care (01) ==
LOC: BARWHC3 12:59
PROVIDERS: ATTEND Surgery Plastic and Reconstructive Surgery
DX: R13.10 Dysphagia, unspecified (principal); R12 Heartburn; E66.01 Morbid (severe) obesity due to excess calories; E21.1 Secondary hyperparathyroidism, not elsewhere classified; E89.1 Postprocedural hypoinsulinemia; D50.9 Iron deficiency anemia, unspecified; K90.9 Intestinal malabsorption, unspecified; E55.9 Vitamin D deficiency, unspecified; K76.9 Liver disease, unspecified; N19 Unspecified kidney failure; K50.90 Crohn's disease, unspecified, without complications; Z68.26 Body mass index [BMI] 26.0-26.9, adult; Z98.890 Other specified postprocedural states
CPT/HCPCS: 80053; 80061; 82306; 82525; 82607; 82728; 82746; 83036; 83540; 83550; 83735; 83970; 84100; 84134; 84255; 84425; 84443; 84590; 84630; 85027; 85610; 85730; 97803; 99211

== ENCOUNTER → 2018-02-22 | Day surgery (SDC) | payer BC ==
[~2018-02-22] MED LIST changes: -DEXAMETHASONE SOD PHOSPHATE 10 MG/ML 1 ML VIAL IV ONE; +LACTATED RINGERS 1,000 ML IV ONE; -LACTATED RINGERS 1,000 ML IV SCH; +LIDOCAINE 1% 20 ML VIAL (10MG/ML) FOR IV START INTRADERMA ONE; -ONDANSETRON 4 MG/2 ML VIAL IVP ONE; +PROPOFOL 10 MG/ML 20 ML VIAL IV ONE; -SCOPOLAMINE 1.5MG/72HR PATCH TRANSDERM ONE; -SODIUM CHLORIDE 0.9% IRRIGATIO 1,000 ML IRRIGATION ONE; -ceFAZolin IN SWFI 2 GM/20 ML SYRINGE IVP ONE; -fentaNYL (PF) 50 MCG/ML 20 ML VIAL IVP PRN
--- NOTE | 2018-02-22 11:23 | P.GSHP ---
History of Present Illness H&P Date: 02/22/18 CHIEF COMPLAINT: GERD HISTORY OF PRESENT ILLNESS: The patient is a 33-year-old female who presents reports gastroesophageal reflux disease. Upper endoscopy was offered for further evaluation and management. PAST MEDICAL HISTORY: Please see list. PAST SURGICAL HISTORY: Please see list. MEDICATIONS: Please see list. ALLERGIES: Please see list. SOCIAL HISTORY: No illicit drug use FAMILY HISTORY: No reports of Crohn disease or ulcerative colitis. REVIEW OF ORGAN SYSTEMS: CONSTITUTIONAL: No reports of fevers or chills. GI: Denies any blood in stools or constipation. PHYSICAL EXAM: VITAL SIGNS: Stable GENERAL: Well-developed and pleasant in no acute distress. HEENT: No scleral icterus. Extraocular movements grossly intact. Moist buccal mucosa. NECK: Supple without lymphadenopathy. CHEST: Unlabored respirations. Equal bilateral excursions. CARDIOVASCULAR: Regular rate and rhythm. Distal 2+ pulses. ABDOMEN: Soft, nondistended. MUSCULOSKELETAL: No clubbing, cyanosis, or edema. ASSESSMENT: 1. Gastroesophageal reflux disease PLAN: 1. Recommend proceeding with an upper endoscopy Past Medical History Past Medical History: No Reported History Additional Past Medical History / Comment(s): irritable bowel History of Any Multi-Drug Resistant Organisms: None Reported Past Surgical History: Bariatric Surgery, Cholecystectomy, Orthopedic Surgery Additional Past Surgical History / Comment(s): R knee scope., Gastric Bypass 01-29 () laminectomy discectomy 12-29 Past Anesthesia/Blood Transfusion Reactions: No Reported Reaction Past Psychological History: Anxiety Smoking Status: Never smoker Past Alcohol Use History: None Reported Past Drug Use History: None Reported - Past Family History Mother Family Medical History: No Reported History Medications and Allergies Home Medications Medication Instructions Recorded Confirmed Type Calcium Citrate 1,000 mg PO DAILY 10/17/17 02/22/18 History Iron 45 mg PO DAILY 10/17/17 02/22/18 History Vitamin A 8,000 unit PO DAILY 10/17/17 02/22/18 History HYDROcodone/APAP 5-325MG [[place] 1 tab PO BID PRN 01/03/18 02/22/18 History 5-325] Omeprazole 40 mg PO DAILY #90 capsule. 02/20/18 02/22/18 Rx Simethicone [Gas-X] 1 tab PO DAILY 02/20/18 02/22/18 History Allergies Allergy/AdvReac Type Severity Reaction Status Date / Time Penicillins Allergy Itching Verified 02/20/18 17:04
[2018-02-22 11:24] VITALS: RESP 16; TEMP 98.1
--- NOTE | 2018-02-22 11:42 | P.PCN ---
Date of Procedure: 02/22/18 Description of Procedure: PREOPERATIVE DIAGNOSIS: Dysphagia. Nausea with vomiting. POSTOPERATIVE DIAGNOSIS: Dysphagia. Nausea with vomiting. OPERATION: Esophagogastrojejunoscopy with balloon dilatation from 12 to 20 mm. SURGEON: Yaima Deshpande MD ANESTHESIA: MAC. INDICATIONS: The patient is a 33-year-old female who presents with a history of dysphagia and nausea and vomiting. Benefits and risks of the procedure were described. Informed consent was obtained. DESCRIPTION: The patient was brought into the endoscopy suite and laid in the left lateral decubitus position. After a timeout was confirmed, the procedure was initiated. An Olympus gastroscope was passed along the posterior oropharynx down to the distal esophagus where the squamocolumnar junction was unremarkable. The gastric pouch was entered. A gastrojejunal stricture of 12 mm was found as the adult gastroscope was 9.5 mm in size. A [employer] balloon dilator was placed through the scope. Final insufflation up to 20 mm was performed with a total of 2 minutes. The scope was advanced up to 60 cm from the incisors into the Donaldo limb. The mucosa of the gastrojejunal anastomosis was intact. No chronic gastrojejunal marginal ulcer was encountered. No full-thickness injury was encountered. The GI tract was desufflated. The patient tolerated the procedure well. FINDINGS: Squamocolumnar junction unremarkable at 37 cm. Stricture of approximately 12 mm encountered. No chronic gastrojejunal ulceration encountered. Successful balloon dilatation to 20 mm. Gastric pouch 3 cm. RECOMMENDATIONS: Continue omeprazole Upper endoscopy as needed Plan - Discharge Summary New Discharge Prescriptions: No Action Vitamin A 8,000 unit PO DAILY Calcium Citrate 1,000 mg PO DAILY Iron 45 mg PO DAILY HYDROcodone/APAP 5-325MG [[place] 5-325] 1 tab PO BID PRN PRN Reason: Pain Omeprazole 40 mg PO DAILY #90 capsule.dr Gomes [Gas-X] 1 tab PO DAILY Discharge Medication List Calcium Citrate 1,000 mg PO DAILY 10/17/17 [History] Iron 45 mg PO DAILY 10/17/17 [History] Vitamin A 8,000 unit PO DAILY 10/17/17 [History] HYDROcodone/APAP 5-325MG [[place] 5-325] 1 tab PO BID PRN 01/03/18 [History] Omeprazole 40 mg PO DAILY #90 capsule. 02/20/18 [Rx] Simethicone [Gas-X] 1 tab PO DAILY 02/20/18 [History]
[2018-02-22 11:54] VITALS: BP 97/62; PULSE 84
== END | disposition home or self-care (01) ==
LOC: ORWHC2ENDO 10:10
PROVIDERS: ATTEND Surgery Plastic and Reconstructive Surgery
DX: Z98.84 Bariatric surgery status (principal); K21.9 Gastro-esophageal reflux disease without esophagitis; Z79.899 Other long term (current) drug therapy; Z88.0 Allergy status to penicillin
CPT/HCPCS: 81025; 43249; J2704; C1726

== ENCOUNTER → 2018-05-22 | Outpatient (CLI) | payer BC ==
[2018-05-22 14:12] VITALS: BP 109/73; PULSE 80; RESP 16; TEMP 98
--- NOTE | 2018-05-22 14:31 | P.PN ---
Subjective Progress Note Date: 05/22/18 HPI: She has troubles with her pannus. She eats too much then vomits. She has gastric bypass. She has a normal BMI ABDOMEN: She has a pannus PLAN: 1. Nystatin powder for panniculitis 2. She has vomiting from possible stricture. Recommend EGD 3. Body scultping Objective - Vital Signs Vital signs: Vital Signs Temp 98.0 F 05/22/18 14:07 Pulse 80 05/22/18 14:07 Resp 16 05/22/18 14:07 BP 109/73 05/22/18 14:07 Pulse Ox 99 05/22/18 14:07 Intake & Output 05/21/18 05/22/18 05/22/18 18:59 06:59 18:59 Weight 67.721 kg
[2018-05-22 15:04] LABS: HCT 37.3 % (34.0-46.0); HGB 12.3 gm/dL (11.4-16.0); MCH 31.1 pg (25.0-35.0); MCHC 32.8 g/dL (31.0-37.0); MCV 94.7 fL (80.0-100.0); Mean Platelet Volume 6.4; Platelet Count 384 k/uL (150-450); RBC 3.94 m/uL (3.80-5.40); RDW 13.2 % (11.5-15.5)
[2018-05-22 15:18] LABS: Prothrombin Time 10.9 sec (9.0-12.0)
[2018-05-22 15:19] LABS: Partial Thromboplastin Time 25.2 sec (22.0-30.0)
[2018-05-22 20:49] LABS: Albumin 4.4 g/dL (3.80-4.90); Albumin/Globulin Ratio 2.2 (1.20-2.10); Anion Gap 8.9 mmol/L (4.00-12.00); Calcium 9.2 mg/dL (8.7-10.3); Carbon Dioxide 26.1 mmol/L (21.6-31.8); LDL Cholesterol,Calculated 70.6 mg/dL (0.0-131.0); Magnesium 1.9 mg/dL (1.5-2.4); Phosphorus 3.6 mg/dL (2.4-5.1); Potassium 3.6 mmol/L (3.5-5.5); Total Bilirubin 0.3 mg/dL (0.3-1.2); Total Protein 6.4 g/dL (6.2-8.2); VLDL Calculation 22.4 mg/dL (5.00-40.00)
[2018-05-22 21:03] LABS: Parathyroid Hormone Intact 33.8 pg/mL (14.0-72.0)
[2018-05-22 21:35] LABS: Iron Saturation 32.87 (12.00-45.00)
[2018-05-22 21:43] LABS: Vitamin D 25 Hydroxy 61.7 ng/mL (30.0-100.0)
[2018-05-22 22:53] LABS: Folate, Serum 10.9 ng/mL
[2018-05-23 12:45] LABS: Zinc, Serum 55 ug/dL (60-130)
[2018-05-24 09:35] LABS: Vitamin A 57 ug/dL (38-106)
[2018-05-24 09:44] LABS: Vitamin B1 67 ug/L (38-122)
== END ==
LOC: BARWHC3 13:02
PROVIDERS: ATTEND Surgery Plastic and Reconstructive Surgery
DX: E65 Localized adiposity (principal); E66.01 Morbid (severe) obesity due to excess calories; E21.1 Secondary hyperparathyroidism, not elsewhere classified; E89.1 Postprocedural hypoinsulinemia; D50.9 Iron deficiency anemia, unspecified; K90.9 Intestinal malabsorption, unspecified; E55.9 Vitamin D deficiency, unspecified; K74.1 Hepatic sclerosis; N19 Unspecified kidney failure; K50.90 Crohn's disease, unspecified, without complications; Z48.815 Encounter for surgical aftercare following surgery on the digestive system; Z98.84 Bariatric surgery status; Z68.24 Body mass index [BMI] 24.0-24.9, adult
CPT/HCPCS: 36415; 80053; 80061; 82306; 82525; 82607; 82728; 82746; 83036; 83540; 83550; 83735; 83970; 84100; 84134; 84255; 84425; 84443; 84590; 84630; 85027; 85610; 85730; 99211

== ENCOUNTER 2018-05-27 08:55 | Day surgery (SDC) | payer BC ==
[2018-05-24 14:05] VITALS: BMI 24.6
--- NOTE | 2018-05-26 15:24 | P.GSHP ---
History of Present Illness H&P Date: 05/27/18 CHIEF COMPLAINT: GERD HISTORY OF PRESENT ILLNESS: The patient is a 33-year-old female who presents reports gastroesophageal reflux disease. Upper endoscopy was offered for further evaluation and management. PAST MEDICAL HISTORY: Please see list. PAST SURGICAL HISTORY: Please see list. MEDICATIONS: Please see list. ALLERGIES: Please see list. SOCIAL HISTORY: No illicit drug use FAMILY HISTORY: No reports of Crohn disease or ulcerative colitis. REVIEW OF ORGAN SYSTEMS: CONSTITUTIONAL: No reports of fevers or chills. GI: Denies any blood in stools or constipation. PHYSICAL EXAM: VITAL SIGNS: Stable GENERAL: Well-developed and pleasant in no acute distress. HEENT: No scleral icterus. Extraocular movements grossly intact. Moist buccal mucosa. NECK: Supple without lymphadenopathy. CHEST: Unlabored respirations. Equal bilateral excursions. CARDIOVASCULAR: Regular rate and rhythm. Distal 2+ pulses. ABDOMEN: Soft, nondistended. MUSCULOSKELETAL: No clubbing, cyanosis, or edema. ASSESSMENT: 1. Gastroesophageal reflux disease PLAN: 1. Recommend proceeding with an upper endoscopy Past Medical History Past Medical History: No Reported History Additional Past Medical History / Comment(s): hx IBS, heartburn and vomiting recently, History of Any Multi-Drug Resistant Organisms: None Reported Past Surgical History: Back Surgery, Bariatric Surgery, Cholecystectomy, Orthopedic Surgery Additional Past Surgical History / Comment(s): Rt knee arthroscopy., Gastric Bypass 08-20-17, laminectomy/discectomy Past Anesthesia/Blood Transfusion Reactions: Motion Sickness Smoking Status: Never smoker - Past Family History Mother Family Medical History: No Reported History Medications and Allergies Home Medications Medication Instructions Recorded Confirmed Type HYDROcodone/APAP 5-325MG [[place] 1 tab PO BID PRN 01/03/18 05/24/18 History 5-325] Venlafaxine HCl [Effexor] 37.5 mg PO BID 05/22/18 05/24/18 History Calcium Carbonate 500 mg PO BID 05/24/18 05/24/18 History Levonorgestrel [Mirena] 1 each IY DIRECTED 05/24/18 05/24/18 History Nascobal 1 spray NASAL Q14D 05/24/18 05/24/18 History Omeprazole 40 mg PO W/SUPPER 05/24/18 05/24/18 History Vitamin A Acetate [Vitamin A] 10,000 unit SL DAILY 05/24/18 05/24/18 History Allergies Allergy/AdvReac Type Severity Reaction Status Date / Time Penicillins Allergy Itching Verified 05/24/18 13:57
[2018-05-27] MEDS ORDERED: LACTATED RINGERS 1,000 ML IV ONE (09:48)
[2018-05-27 09:53] VITALS: TEMP 1096
[2018-05-27] MEDS ORDERED: fentaNYL (PF) 50 MCG/ML 2 ML AMP ONE (10:38)
[2018-05-27] MEDS ORDERED: PROPOFOL 10 MG/ML 20 ML VIAL IV ONE (10:38)
[2018-05-27] MEDS ORDERED: LIDOCAINE 1% INJ 10MG/ML (20 ML MDV) ONE (10:38)
--- NOTE | 2018-05-27 10:57 | P.PCN ---
Date of Procedure: 05/27/18 Description of Procedure: PREOPERATIVE DIAGNOSIS: Dysphagia. Epigastric abdominal pain Nausea with vomiting. Gastroesophageal reflux disease POSTOPERATIVE DIAGNOSIS: Dysphagia. Epigastric abdominal pain Nausea with vomiting. Gastroesophageal reflux disease Gastrojejunal stricture with chronic ulcer without perforation OPERATION: Esophagogastrojejunoscopy with balloon dilatation from 15 to 20 mm. Esophagogastrojejunoscopy with cold forceps biopsy SURGEON: Yaima Deshpande MD ANESTHESIA: MAC. INDICATIONS: The patient is a 33-year-old female who presents with a history of dysphagia, gastric bypass including new-onset nausea and vomiting. Benefits and risks of the procedure were described. Informed consent was obtained. DESCRIPTION: The patient was brought into the endoscopy suite and laid in the left lateral decubitus position. After a timeout was confirmed, the procedure was initiated. An Olympus gastroscope was passed along the posterior oropharynx down to the distal esophagus where the squamocolumnar junction was unremarkable. The gastric pouch was entered. A gastrojejunal stricture of 15 mm was found as the adult gastroscope was 9.5 mm in size. A [employer] balloon dilator was placed through the scope. Final insufflation up to 20 mm was performed with a total of 2 minutes. The scope was advanced up to 60 cm from the incisors into the Donaldo limb. The mucosa of the gastrojejunal anastomosis was intact. However no chronic gastrojejunal marginal ulcer was encountered. No full-thickness injury was encountered. The GI tract was desufflated. The patient tolerated the procedure well. FINDINGS: Stricture of approximately 15 mm encountered. No chronic gastrojejunal ulceration encountered. Successful balloon dilatation to 20 mm. Gastric pouch 4 cm. RECOMMENDATIONS: Upper endoscopy as needed Start omeprazole for 2 weeks Plan - Discharge Summary New Discharge Prescriptions: No Action Venlafaxine HCl [Effexor] 37.5 mg PO BID Calcium Carbonate 500 mg PO BID Vitamin A Acetate [Vitamin A] 10,000 unit SL DAILY Omeprazole 40 mg PO W/SUPPER Nascobal 1 spray NASAL Q14D Levonorgestrel [Mirena] 1 each IY DIRECTED Multivitamins, Thera [Multivitamin (formulary)] 1 tab PO DAILY Discharge Medication List Venlafaxine HCl [Effexor] 37.5 mg PO BID 05/22/18 [History] Calcium Carbonate 500 mg PO BID 05/24/18 [History] Levonorgestrel [Mirena] 1 each IY DIRECTED 05/24/18 [History] Nascobal 1 spray NASAL Q14D 05/24/18 [History] Omeprazole 40 mg PO W/SUPPER 05/24/18 [History] Vitamin A Acetate [Vitamin A] 10,000 unit SL DAILY 05/24/18 [History] Multivitamins, Thera [Multivitamin (formulary)] 1 tab PO DAILY 05/27/18 [History ]
[2018-05-27 11:31] VITALS: PULSE 65; RESP 18
[2018-05-27 11:41] VITALS: BP 100/65
== END 2018-05-27 11:53 | disposition home or self-care (01) ==
LOC: ORWHC2ENDO 08:55
PROVIDERS: ATTEND Surgery Plastic and Reconstructive Surgery
DX: K29.50 Unspecified chronic gastritis without bleeding (principal); K31.89 Other diseases of stomach and duodenum; K21.9 Gastro-esophageal reflux disease without esophagitis; Z87.19 Personal history of other diseases of the digestive system; Z98.84 Bariatric surgery status; F32.9 Major depressive disorder, single episode, unspecified; Z79.899 Other long term (current) drug therapy; Z88.0 Allergy status to penicillin
CPT/HCPCS: 81025; 88305; 43239; 43245; J2001; J3010; J2704

== ENCOUNTER → 2018-05-29 | Outpatient (CLI) | payer BC ==
[2018-05-29 17:06] VITALS: BP 99/66; PULSE 74; TEMP 97.8; BMI 24.7
--- NOTE | 2018-05-29 18:02 | P.PN ---
Subjective Progress Note Date: 05/29/18 HPI: She reports behavorial vomiting after eating carbs at least 4x weekly. She has guilt after eating carbs. She also reports occassional pain along the left upper quadrant. No nausea. She responded well to EGD with dilation. is at bedside ABDOMEN: Nontender LABS: Reviewed PLAN: 1. Zinc deficiency overlaps with her symptoms 2. Selenium is elevated. Recommend holding MVI. 3. Continue with work with therapist. Objective - Vital Signs Vital signs: Vital Signs Temp 97.8 F 05/29/18 16:28 Pulse 74 05/29/18 16:28 Resp BP 99/66 05/29/18 16:28 Pulse Ox Intake & Output 05/28/18 05/29/18 05/29/18 18:59 06:59 18:59 Weight 67.585 kg
== END ==
LOC: BARWHC3 15:54
PROVIDERS: ATTEND Surgery Plastic and Reconstructive Surgery
DX: R11.10 Vomiting, unspecified (principal); R10.12 Left upper quadrant pain
CPT/HCPCS: 99211

== ENCOUNTER → 2018-07-01 | Outpatient (CLI) | payer BC ==
--- NOTE | 2018-07-01 14:54 | CT ---
EXAMINATION TYPE: CT brain wo con DATE OF EXAM: 07/01/2018 COMPARISON: None INDICATION: DIZZINESS AND HERNANDEZ AFTER HEAD INJURY DLP: 1042.9 mGycm, Automated exposure control for dose reduction was used. CONTRAST: None CT of the brain is performed utilizing 3 mm thick sections through the posterior fossa and 3 mm thick sections through the remaining calvarium. Study is performed within 24 hours of arrival to the hosp [facility]. No abnormal hyperdensity is present to suggest an acute intracranial hemorrhage. No mass lesion is evident. No acute infarcts are evident. Ventricles and sulci are appropriate for the patient age. Paranasal sinuses and mastoid air cells within the [id number] are clear. IMPRESSIONS: 1. Normal CT Brain
== END | disposition home or self-care (01) ==
LOC: RADCTMAIN 14:25
PROVIDERS: ATTEND Physician Assistant
DX: S09.90XA Unspecified injury of head, initial encounter (principal)
CPT/HCPCS: 70450

== ENCOUNTER → 2018-08-22 | Outpatient (CLI) | payer BC ==
--- NOTE | 2018-08-22 08:19 | P.PN ---
Subjective Progress Note Date: 08/22/18 DATE OF SERVICE: 08/22/2018 [facility] COMPLAINT: Abdominal pain HISTORY OF PRESENT ILLNESS: Dory Short is a 33-year-old female who is status post gastric bypass 08/20/2017. She is 1 year out. She feels well. She reports left upper quadrant pain. She also reports right lower quadrant pain. Bowel movements are daily. No further dysphagia. She is taking her MVI. She reports new left upper quadrant abdominal pain that is sporadic. Her pain is worse with stretching and bending. She reports pulling sensation. No blood in stools. No gastroesophageal reflux disease. She has history of gastrojejunal stricture with dysphagia. At her height of 5 foot 5 inches, her ideal body weight is 149 pounds. Her highest weight was 246 pounds. Today she comes in 146 pounds from 149 pounds, 3 months ago. She has lost 3 pounds in 3 months. Her body mass index is reduced from 41.0 down to 24.3. Lifetime weight loss, 100 pounds. Percent excess weight loss is 103 %. PAST MEDICAL HISTORY: 1. Morbid obesity. 2. Body mass index of 40.6, initial. 3. Osteoarthritis of the knees. 4. Irritable bowel syndrome. 5. Anxiety. 6. Osteoarthritis of the lower back. 7. Gastroesophageal reflux disease PAST SURGICAL HISTORY: 1. Lower endoscopy. 2. Cholecystectomy. 3. Gastric bypass HOME MEDICATIONS: 1. Lomotil. 2. Bentyl. ALLERGIES: Penicillin. SOCIAL HISTORY: No active tobacco use. FAMILY HISTORY: No family history of ulcerative colitis disease or Crohn's disease. Family history of morbid obesity. No lupus in family. No reports of stomach or esophageal cancer. Family history of heart disease. Aunt with gastric bypass. REVIEW OF ORGAN SYSTEMS: CONSTITUTIONAL: At her height of 5 foot 5 inches, her ideal body weight is 149 pounds. Her highest weight was 243 pounds. Her body mass index was 40.5. HEENT: Denies any active troubles with vision or hearing. No troubles with swallowing. ENDOCRINE: No diabetes. No hypothyroidism. CARDIOVASCULAR: No reports of palpitations or heart attacks or chest pain. RESPIRATORY: Has daytime somnolence. No asthma. GI: Denies any bright red blood per rectum. Has diarrhea. Previous endoscopies MUSCULOSKELETAL: Has lower back pain and joint pain. Has osteoarthritis of the knees. NEURO: No headaches. No seizure disorders. PSYCH: No depression or suicidal ideation. RHEUMATOLOGIC: No lupus. No rheumatoid arthritis. HEMATOLOGIC: Denies any abnormal bleeding or bruising. No personal history of DVTs. SKIN: No rash. No skin cancer. PHYSICAL EXAM: VITAL SIGNS: Height 5 foot 5 inches, weight 146 pounds. BMI 24.3 Vital Signs Temp 97.7 F 08/22/18 08:28 Pulse 71 08/22/18 08:28 Resp BP 97/58 08/22/18 08:28 Pulse Ox GENERAL: Well-developed in no acute distress. HEENT: No scleral icterus. Extraocular movements grossly intact. Hears conversational speech. No nasal drainage. NECK: Supple without lymphadenopathy. CHEST: Nonlabored respirations with equal bilateral excursions. CARDIOVASCULAR: Regular rate. Regular rhythm. Distal 2+ pulses. ABDOMEN: Obese, soft, nondistended. No hernia. MUSCULOSKELETAL: No clubbing, cyanosis. No lower extremity edema. NEURO: No focal or lateralizing signs. Cranial nerves 2 through 12 grossly within normal limits. PSYCH: Appropriate affect. Alert and oriented to person, place and time. SKIN: Good skin turgor. Well perfused. ASSESSMENT: 1. Morbid obesity due to excess calories. 2. Body mass index of 41.0 down to 24.3 3. Osteoarthritis of the knees. 4. Obstructive sleep apnea. 5. Osteoarthritis of the back. 6. Irritable bowel syndrome. 7. Dietary surveillance and counseling. 8. Food ALLERGIES 9. Family history of morbid obesity. 10. Family history of heart disease. 11. Gastroesophageal reflux disease 12. Status post gastric bypass 13. Vitamin A deficiency 14. Dysphagia 15. Panniculitis 16. Eating disorder 17. Left upper abdomen 18. Peritoneal adhesion PLAN: 1. Robotic lysis adhesions described for her generalized abdominal pain. 2. DVT prophylaxis 3. Antibiotic prophylaxis
[2018-08-22 08:33] VITALS: BP 97/58; PULSE 71; TEMP 97.7; BMI 24.3
== END ==
LOC: BARWHC3 07:50
PROVIDERS: ATTEND Surgery Plastic and Reconstructive Surgery
DX: E66.01 Morbid (severe) obesity due to excess calories (principal); M17.0 Bilateral primary osteoarthritis of knee; G47.33 Obstructive sleep apnea (adult) (pediatric); M47.9 Spondylosis, unspecified; K58.9 Irritable bowel syndrome, unspecified; T78.1XXA Other adverse food reactions, not elsewhere classified, initial encounter; K21.9 Gastro-esophageal reflux disease without esophagitis; E50.9 Vitamin A deficiency, unspecified; R13.10 Dysphagia, unspecified; M79.3 Panniculitis, unspecified; F50.9 Eating disorder, unspecified; K66.0 Peritoneal adhesions (postprocedural) (postinfection); Z79.899 Other long term (current) drug therapy; Z88.0 Allergy status to penicillin; Z68.24 Body mass index [BMI] 24.0-24.9, adult
CPT/HCPCS: 99211

== ENCOUNTER → 2018-10-03 | Outpatient (CLI) | payer BC ==
[2018-10-03 09:56] LABS: HCT 39.2 % (34.0-46.0); HGB 12.6 gm/dL (11.4-16.0); MCH 30.5 pg (25.0-35.0); MCHC 32.1 g/dL (31.0-37.0); MCV 95.1 fL (80.0-100.0); Mean Platelet Volume 6.6; Platelet Count 281 k/uL (150-450); RBC 4.12 m/uL (3.80-5.40); RDW 12.5 % (11.5-15.5)
[2018-10-03 10:14] LABS: Partial Thromboplastin Time 24.6 sec (22.0-30.0); Prothrombin Time 10.7 sec (9.0-12.0)
[2018-10-03 16:48] LABS: Parathyroid Hormone Intact 25.2 pg/mL (14.0-72.0)
[2018-10-03 18:03] LABS: Iron Saturation 42.53 (12.00-45.00)
[2018-10-03 18:11] LABS: Vitamin D 25 Hydroxy 66.2 ng/mL (30.0-100.0)
[2018-10-03 18:12] LABS: Folate, Serum 7.6 ng/mL
[2018-10-03 18:45] LABS: Albumin 4.2 g/dL (3.80-4.90); Albumin/Globulin Ratio 1.75 (1.60-3.17); Anion Gap 6.9 mmol/L (4.00-12.00); Calcium 8.8 mg/dL (8.7-10.3); Carbon Dioxide 25.1 mmol/L (21.6-31.8); Globulin 2.4 g/dL (1.6-3.3); LDL Cholesterol,Calculated 68.4 mg/dL (0.0-131.0); Magnesium 1.8 mg/dL (1.5-2.4); Phosphorus 3.2 mg/dL (2.4-5.1); Total Bilirubin 0.4 mg/dL (0.3-1.2); Total Protein 6.6 g/dL (6.2-8.2); VLDL Calculation 14.6 mg/dL (5.00-40.00)
[2018-10-04 11:18] LABS: Zinc, Serum 60 ug/dL (60-130)
== END | disposition home or self-care (01) ==
LOC: LABWHC1 09:07
PROVIDERS: ATTEND Surgery Plastic and Reconstructive Surgery
DX: E66.01 Morbid (severe) obesity due to excess calories (principal); E21.1 Secondary hyperparathyroidism, not elsewhere classified; E89.1 Postprocedural hypoinsulinemia; D50.9 Iron deficiency anemia, unspecified; K90.9 Intestinal malabsorption, unspecified; E55.9 Vitamin D deficiency, unspecified; K74.1 Hepatic sclerosis; N19 Unspecified kidney failure; K50.90 Crohn's disease, unspecified, without complications
CPT/HCPCS: 36415; 80053; 80061; 82306; 82525; 82607; 82728; 82746; 83036; 83540; 83550; 83735; 83970; 84100; 84134; 84255; 84425; 84443; 84590; 84630; 85027; 85610; 85730

== ENCOUNTER 2018-10-04 06:15 | Day surgery (SDC) | payer BC ==
[2018-10-03 12:57] VITALS: BMI 23.3
--- NOTE | 2018-10-04 06:12 | P.GSHP ---
History of Present Illness H&P Date: 10/04/18 CHIEF COMPLAINT: GERD HISTORY OF PRESENT ILLNESS: The patient is a 33-year-old female who presents reports gastroesophageal reflux disease. Upper endoscopy was offered for further evaluation and management. PAST MEDICAL HISTORY: Please see list. PAST SURGICAL HISTORY: Please see list. MEDICATIONS: Please see list. ALLERGIES: Please see list. SOCIAL HISTORY: No illicit drug use FAMILY HISTORY: No reports of Crohn disease or ulcerative colitis. REVIEW OF ORGAN SYSTEMS: CONSTITUTIONAL: No reports of fevers or chills. GI: Denies any blood in stools or constipation. PHYSICAL EXAM: VITAL SIGNS: Stable GENERAL: Well-developed and pleasant in no acute distress. HEENT: No scleral icterus. Extraocular movements grossly intact. Moist buccal mucosa. NECK: Supple without lymphadenopathy. CHEST: Unlabored respirations. Equal bilateral excursions. CARDIOVASCULAR: Regular rate and rhythm. Distal 2+ pulses. ABDOMEN: Soft, nondistended. MUSCULOSKELETAL: No clubbing, cyanosis, or edema. ASSESSMENT: 1. Gastroesophageal reflux disease PLAN: 1. Recommend proceeding with an upper endoscopy Past Medical History Past Medical History: No Reported History Additional Past Medical History / Comment(s): Hx IBS, heartburn. DYSPHAGIA FOR PAST WEEK. History of Any Multi-Drug Resistant Organisms: None Reported Past Surgical History: Back Surgery, Bariatric Surgery, Cholecystectomy, Orthopedic Surgery Additional Past Surgical History / Comment(s): Rt knee arthroscopy., Gastric Bypass 08-20-17, laminectomy/discectomy. EGD, COLONOSCOPY; EGD W/ DILATION 05/2018. Past Anesthesia/Blood Transfusion Reactions: Motion Sickness Smoking Status: Never smoker - Past Family History Mother Family Medical History: No Reported History Medications and Allergies Home Medications Medication Instructions Recorded Confirmed Type Calcium Carbonate 500 mg PO BID 05/24/18 10/03/18 History Levonorgestrel [Mirena] 1 each IY DIRECTED 05/24/18 10/03/18 History Nascobal 1 spray NASAL Q14D 05/24/18 10/03/18 History Omeprazole 40 mg PO W/SUPPER 05/24/18 10/03/18 History Vitamin A Acetate [Vitamin A] 10,000 unit SL DAILY 05/24/18 10/03/18 History Multivitamins, Thera [Multivitamin 1 tab PO DAILY 05/27/18 10/03/18 History (formulary)] clonazePAM [KlonoPIN] 0.5 mg PO DAILY PRN 08/22/18 10/03/18 History Gabapentin [Neurontin] 100 mg PO BID 10/03/18 10/03/18 History Iron 45mg/Vitamin C 60 Mg 1 tab PO DAILY 10/03/18 History Nystatin 100,000 Unit/gm Powd 1 applic TOPICAL TID PRN 10/03/18 10/03/18 History [Mycostatin Powder] Venlafaxine HCl [Effexor] 37.5 mg PO BID 10/03/18 10/03/18 History Allergies Allergy/AdvReac Type Severity Reaction Status Date / Time Penicillins Allergy Itching Verified 10/03/18 12:39
[~2018-10-04 06:15] MED LIST changes: -LACTATED RINGERS 1,000 ML IV ONE; +LACTATED RINGERS 1,000 ML IV SCH; -LIDOCAINE 1% 20 ML VIAL (10MG/ML) FOR IV START INTRADERMA ONE; -PROPOFOL 10 MG/ML 20 ML VIAL IV ONE
[2018-10-04 06:32] VITALS: TEMP 97.6
[2018-10-04] MEDS ORDERED: LIDOCAINE 1% INJ 10MG/ML (20 ML MDV) ONE (06:59)
[2018-10-04] MEDS ORDERED: fentaNYL (PF) 50 MCG/ML 2 ML AMP ONE (06:59)
[2018-10-04] MEDS ORDERED: PROPOFOL 10 MG/ML 20 ML VIAL IV ONE (06:59)
[2018-10-04] MEDS ORDERED: MIDAZOLAM 2 MG/2 ML VIAL ONE (06:59)
--- NOTE | 2018-10-04 07:23 | P.PCN ---
Date of Procedure: 10/04/18 Description of Procedure: PREOPERATIVE DIAGNOSIS: Dysphagia. Epigastric abdominal pain Nausea with vomiting. Gastrojejunal stricture POSTOPERATIVE DIAGNOSIS: Dysphagia. Epigastric abdominal pain Nausea with vomiting. Gastrojejunal stricture without chronic ulcer without perforation OPERATION: Esophagogastrojejunoscopy with balloon dilatation from 15 to 20 mm. Esophagogastrojejunoscopy with cold forceps biopsy SURGEON: Yaima Deshpande MD ANESTHESIA: MAC. INDICATIONS: The patient is a 33-year-old female who presents with a history of dysphagia including nausea and vomiting. Benefits and risks of the procedure were described. Informed consent was obtained. DESCRIPTION: The patient was brought into the endoscopy suite and laid in the left lateral decubitus position. After a timeout was confirmed, the procedure was initiated. An Olympus gastroscope was passed along the posterior oropharynx down to the distal esophagus where the squamocolumnar junction was unremarkable. The gastric pouch was entered. A gastrojejunal stricture of 18 mm was found as the adult gastroscope was 9.5 mm in size. A [employer] balloon dilator was placed through the scope. Final insufflation up to 20 mm was performed with a total of 2 minutes. The scope was advanced up to 60 cm from the incisors into the Donaldo limb. The mucosa of the gastrojejunal anastomosis was intact. However no chronic gastrojejunal marginal ulcer was encountered. No full-thickness injury was encountered. The GI tract was desufflated. The patient tolerated the procedure well. 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 No chronic gastrojejunal ulceration encountered. Successful balloon dilatation to 20 mm. Gastric pouch 4 cm. RECOMMENDATIONS: Upper endoscopy as needed Plan - Discharge Summary Discharge Rx Participant: No New Discharge Prescriptions: No Action Calcium Carbonate 500 mg PO BID Vitamin A Acetate [Vitamin A] 10,000 unit SL DAILY Omeprazole 40 mg PO W/SUPPER Nascobal 1 spray NASAL Q14D Levonorgestrel [Mirena] 1 each IY DIRECTED Multivitamins, Thera [Multivitamin (formulary)] 1 tab PO DAILY clonazePAM [KlonoPIN] 0.5 mg PO DAILY PRN PRN Reason: Anxiety Venlafaxine HCl [Effexor] 37.5 mg PO BID Gabapentin [Neurontin] 100 mg PO BID Nystatin 100,000 Unit/gm Powd [Mycostatin Powder] 1 applic TOPICAL TID PRN PRN Reason: Skin Irritation Iron 45mg/Vitamin C 60 Mg 1 tab PO DAILY Discharge Medication List Calcium Carbonate 500 mg PO BID 05/24/18 [History] Levonorgestrel [Mirena] 1 each IY DIRECTED 05/24/18 [History] Nascobal 1 spray NASAL Q14D 05/24/18 [History] Omeprazole 40 mg PO W/SUPPER 05/24/18 [History] Vitamin A Acetate [Vitamin A] 10,000 unit SL DAILY 05/24/18 [History] Multivitamins, Thera [Multivitamin (formulary)] 1 tab PO DAILY 05/27/18 [History] clonazePAM [KlonoPIN] 0.5 mg PO DAILY PRN 08/22/18 [History] Gabapentin [Neurontin] 100 mg PO BID 10/03/18 [History] Iron 45mg/Vitamin C 60 Mg 1 tab PO DAILY 10/03/18 [History] Nystatin 100,000 Unit/gm Powd [Mycostatin Powder] 1 applic TOPICAL TID PRN 10/03/18 [History] Venlafaxine HCl [Effexor] 37.5 mg PO BID 10/03/18 [History]
[2018-10-04 07:44] VITALS: RESP 15
[2018-10-04 07:56] VITALS: BP 104/65; PULSE 83
== END 2018-10-04 07:57 | disposition home or self-care (01) ==
LOC: ORWHC2ENDO 06:15
PROVIDERS: ATTEND Surgery Plastic and Reconstructive Surgery
DX: K31.89 Other diseases of stomach and duodenum (principal); K56.609 Unspecified intestinal obstruction, unspecified as to partial versus complete obstruction; K58.9 Irritable bowel syndrome, unspecified; F39 Unspecified mood [affective] disorder; K21.9 Gastro-esophageal reflux disease without esophagitis; Z98.84 Bariatric surgery status; Z79.899 Other long term (current) drug therapy; Z88.0 Allergy status to penicillin; Z79.3 Long term (current) use of hormonal contraceptives
CPT/HCPCS: 81025; 43245; J2250; J2001; J3010; J2704; C1726

== ENCOUNTER 2018-10-14 05:51 | Day surgery (SDC) | payer BC ==
[2018-10-09 16:29] VITALS: BMI 23.8
--- NOTE | 2018-10-13 14:21 | P.GSHP ---
History of Present Illness H&P Date: 10/14/18 DATE OF SERVICE: 10/13/2018 CHEIF COMPLAINT: Abdominal pain HISTORY OF PRESENT ILLNESS: Dory Short is a 33-year-old female who is status post gastric bypass 08/20/2017. She is 1 year out. She reports persistent left upper quadrant abdominal pain despite previous upper endoscopy. With her history of gastric bypass she presents with risks of per toenail adhesions and internal hernias. She presents for laparoscopic lysis of adhesions At her height of 5 foot 5 inches, her ideal body weight is 149 pounds. Her highest weight was 246 pounds. Today she comes in 146 pounds from 149 pounds, 3 months ago. She has lost 3 pounds in 3 months. Her body mass index is reduced from 41.0 down to 24.3. Lifetime weight loss, 100 pounds. Percent excess weight loss is 103 %. PAST MEDICAL HISTORY: 1. Morbid obesity. 2. Body mass index of 40.6, initial. 3. Osteoarthritis of the knees. 4. Irritable bowel syndrome. 5. Anxiety. 6. Osteoarthritis of the lower back. 7. Gastroesophageal reflux disease PAST SURGICAL HISTORY: 1. Lower endoscopy. 2. Cholecystectomy. 3. Gastric bypass HOME MEDICATIONS: 1. Lomotil. 2. Bentyl. ALLERGIES: Penicillin. SOCIAL HISTORY: No active tobacco use. FAMILY HISTORY: No family history of ulcerative colitis disease or Crohn's disease. Family history of morbid obesity. No lupus in family. No reports of stomach or esophageal cancer. Family history of heart disease. Aunt with gastric bypass. REVIEW OF ORGAN SYSTEMS: CONSTITUTIONAL: At her height of 5 foot 5 inches, her ideal body weight is 149 pounds. Her highest weight was 243 pounds. Her body mass index was 40.5. HEENT: Denies any active troubles with vision or hearing. No troubles with swallowing. ENDOCRINE: No diabetes. No hypothyroidism. CARDIOVASCULAR: No reports of palpitations or heart attacks or chest pain. RESPIRATORY: Has daytime somnolence. No asthma. GI: Denies any bright red blood per rectum. Has diarrhea. Previous endoscopies MUSCULOSKELETAL: Has lower back pain and joint pain. Has osteoarthritis of the knees. NEURO: No headaches. No seizure disorders. PSYCH: No depression or suicidal ideation. RHEUMATOLOGIC: No lupus. No rheumatoid arthritis. HEMATOLOGIC: Denies any abnormal bleeding or bruising. No personal history of DVTs. SKIN: No rash. No skin cancer. PHYSICAL EXAM: VITAL SIGNS: Height 5 foot 5 inches, weight 146 pounds. BMI 24.3 GENERAL: Well-developed in no acute distress. HEENT: No scleral icterus. Extraocular movements grossly intact. Hears conversational speech. No nasal drainage. NECK: Supple without lymphadenopathy. CHEST: Nonlabored respirations with equal bilateral excursions. CARDIOVASCULAR: Regular rate. Regular rhythm. Distal 2+ pulses. ABDOMEN: Obese, soft, nondistended. No hernia. MUSCULOSKELETAL: No clubbing, cyanosis. No lower extremity edema. NEURO: No focal or lateralizing signs. Cranial nerves 2 through 12 grossly within normal limits. PSYCH: Appropriate affect. Alert and oriented to person, place and time. SKIN: Good skin turgor. Well perfused. ASSESSMENT: 1. Morbid obesity due to excess calories. 2. Body mass index of 41.0 down to 24.3 3. Osteoarthritis of the knees. 4. Obstructive sleep apnea. 5. Osteoarthritis of the back. 6. Irritable bowel syndrome. 7. Dietary surveillance and counseling. 8. Food ALLERGIES 9. Family history of morbid obesity. 10. Family history of heart disease. 11. Gastroesophageal reflux disease 12. Status post gastric bypass 13. Vitamin A deficiency 14. Dysphagia 15. Panniculitis 16. Eating disorder 17. Left upper abdomen 18. Peritoneal adhesion PLAN: 1. Robotic lysis adhesions described for her generalized abdominal pain. 2. DVT prophylaxis 3. Antibiotic prophylaxis Past Medical History Past Medical History: GERD/Reflux Additional Past Medical History / Comment(s): hx IBS History of Any Multi-Drug Resistant Organisms: None Reported Past Surgical History: Back Surgery, Bariatric Surgery, Cholecystectomy, Orthopedic Surgery Additional Past Surgical History / Comment(s): Rt knee arthroscopy., Gastric Bypass 08-20-17, laminectomy/discectomy,EGD w/dilatation Past Anesthesia/Blood Transfusion Reactions: Motion Sickness Smoking Status: Never smoker - Past Family History Mother Family Medical History: No Reported History Medications and Allergies Home Medications Medication Instructions Recorded Confirmed Type Calcium Carbonate 500 mg PO BID 05/24/18 10/09/18 History Levonorgestrel [Mirena] 1 each IY DIRECTED 05/24/18 10/09/18 History Nascobal 1 spray NASAL Q14D 05/24/18 10/09/18 History Omeprazole 40 mg PO W/SUPPER 05/24/18 10/09/18 History Vitamin A Acetate [Vitamin A] 10,000 unit SL DAILY 05/24/18 10/09/18 History Multivitamins, Thera [Multivitamin 1 tab PO DAILY 05/27/18 10/09/18 History (formulary)] clonazePAM [KlonoPIN] 0.5 mg PO DAILY PRN 08/22/18 10/09/18 History Gabapentin [Neurontin] 100 mg PO BID 10/03/18 10/09/18 History Iron 45mg/Vitamin C 60 Mg 1 tab PO DAILY 10/03/18 10/09/18 History Nystatin 100,000 Unit/gm Powd 1 applic TOPICAL TID PRN 10/03/18 10/09/18 History [Mycostatin Powder] Venlafaxine HCl [Effexor] 37.5 mg PO BID 10/03/18 10/09/18 History Allergies Allergy/AdvReac Type Severity Reaction Status Date / Time Penicillins Allergy Itching Verified 10/09/18 16:04
[~2018-10-14 05:51] MED LIST changes: +DEXAMETHASONE SOD PHOSPHATE 10 MG/ML 1 ML VIAL IV ONE; +LIDOCAINE 1% 20 ML VIAL (10MG/ML) FOR IV START INTRADERMA PRN; +MIDAZOLAM 2 MG/2 ML VIAL IV PRN; +Pre Op ABX Message 1 EACH MISC MISCELLANE ONE
[2018-10-14] MEDS ORDERED: HEPARIN SODIUM,PORCINE 5,000 UNIT/ML 1 ML VIAL SQ ONE (06:06)
[2018-10-14] MEDS ORDERED: ONDANSETRON 4 MG/2 ML VIAL IVP ONE (06:40)
[2018-10-14] MEDS ORDERED: SCOPOLAMINE 1.5MG/72HR PATCH TRANSDERM ONE (06:41)
[2018-10-14] MEDS ORDERED: LIDOCAINE 1% INJ 10MG/ML (20 ML MDV) ONE (06:54)
[2018-10-14] MEDS ORDERED: MIDAZOLAM 2 MG/2 ML VIAL ONE (06:54)
[2018-10-14] MEDS ORDERED: NEOSTIGMINE 1 MG/ML 10 ML VIAL ONE (06:54)
[2018-10-14] MEDS ORDERED: fentaNYL (PF) 50 MCG/ML 2 ML AMP ONE (06:54)
[2018-10-14] MEDS ORDERED: GLYCOPYRROLATE 0.2 MG/ML 2 ML VIAL ONE (06:54)
[2018-10-14] MEDS ORDERED: PROPOFOL 10 MG/ML 20 ML VIAL IV ONE (06:54)
[2018-10-14] MEDS ORDERED: ROCURONIUM BROMIDE 10 MG/ML 10 ML VIAL IV ONE (06:54)
[2018-10-14] MEDS ORDERED: ceFAZolin IN SWFI 2 GM/20 ML SYRINGE IVP ONE (07:00)
[2018-10-14] MEDS ORDERED: BUPIVACAIN-EPI 0.25%-1:200,000 30 ML VIAL SQ ONE (07:31)
[2018-10-14] MEDS ORDERED: LACTATED RINGERS 1,000 ML IV ONE (08:06)
[2018-10-14 09:16] VITALS: TEMP 97.1
[2018-10-14] MEDS: fentaNYL (PF) 50 MCG/ML 2 ML AMP IV PRN ×3 (09:27→09:40)
--- NOTE | 2018-10-14 09:31 | P.OP ---
Date of Procedure: 10/14/18 Description of Procedure: SURGEON: HOLLI WELCH MD PREOPERATIVE DIAGNOSES: 1. Epigastric abdominal pain 2. Upper quadrant abdominal pain 3. History of gastric bypass 4. Depressive disorder 5. Anxiety disorder 6. Irritable bowel syndrome POSTOPERATIVE DIAGNOSES: 1. Epigastric abdominal pain 2. Upper quadrant abdominal pain 3. History of gastric bypass 4. Depressive disorder 5. Anxiety disorder 6. Irritable bowel syndrome 7. Peritoneal adhesions. 8. Small bowel volvulus involving jejunum 9. Severe constipation with hard stools involving the transverse mesocolon and descending colon OPERATION: 1. Robotic-assisted da Shubham Xi laparoscopic with extensive lysis of adhesions over 45 minutes. ESTIMATED BLOOD LOSS: 5 mL. SPECIMENS REMOVED: None. COMPLICATIONS: None. OPERATIVE FINDINGS: 1. No ventral hernias identified. 2. Adhesions along the epigastrium, left upper quarant and right upper quadrant 3. Long mesentery of the small bowel with intermittent small bowel volvulus reduced 4. Complete scarring of Parikh defect and jejunojejunostomy mesenteric defect 5. Adhesion of gastrojejunal anastomosis to the anterior abdominal wall released 6. Moderate gaseous distention of jejunojejunostomy with minimal redundancy of biliopancreatic limb 7. Abnormal adhesions of biliopancreatic limb jejunostomy to martina limb divided 8. Normal terminal ileum and cecum unremarkable. INDICATIONS: The patient is a 33-year-old female who presents with epigastric abdominal pain including left upper quadrant abdominal pain. Surgical intervention with diagnostic laparoscopy, lysis of adhesions were described. Informed consent was obtained. Robotic assisted laparoscopic approach was described. Benefits and risks of the procedure including but not limited to bleeding, infection, injury to the biliary tree was described. Informed consent was obtained. DESCRIPTION OF PROCEDURE: Patient was brought to the operating room, placed in supine position. After general induction, the abdomen had been prepped and draped in standard sterile fashion. The robotic da Shubham XI system was primed. After a timeout protocol was performed, the patient had been prepped and draped in standard sterile fashion. The robot was docked along the right lateral abdomen. The patient was repositioned in with right side up. Please note prior to docking of the robot; however, a 5 mm 0 degrees laparoscopic trocar entry was performed along the left upper quadrant. Next, three 8 mm robotic ports were placed along the right lateral abdominal wall. The camera 8-mm port was maintained along mid-lateral abdomen. Please note that the ports were placed at least 10 to 15 cm away from the target anatomy. Instruments including graspers and vessel sealer were interchanged by the central supply assistant. I had sat at the console. Omental adhesions along the right upper abdominal wall were addressed using vessel sealer. No evidence of incisional hernia was identified. The rest of the abdomen was unremarkable for small bowel pathology. The small bowel from the martina limb to distal ileum was inspected. No internal hernias were identified. The small bowel was again investigated from the terminal ileum to the ligament of Treitz with finding of redundant mesentery with intermittent small bowel volvulus involving the jejunum. The mesentery small bowel volvulus were reduced. No ventral hernias identified. Adhesions along the epigastrium, left upper quarant and right upper quadrant were lysed using vessel sealer. Long mesentery of the small bowel with intermittent small bowel volvulus was reduced. Complete scarring of Parikh defect and jejunojejunostomy mesenteric defect was confirmed. Adhesion of gastrojejunal anastomosis to the anterior abdominal wall released. Moderate gaseous distention of jejunojejunostomy with minimal redundancy of biliopancreatic limb was found. Abnormal adhesions of the biliopancreatic limb of the jejunojejunostomy to martina limb was divided and released. The terminal ileum and cecum was unremarkable. Extensive lysis of adhesions over 45 minutes performed. No evidence of small bowel obstruction was found. The robot was undocked. All pneumoperitoneum instruments were evacuated from the abdominal cavity. The incisions were reapproximated using 4-0 Monocryl in an interrupted subcuticular fashion. Please note along the trocar sites, local anesthetic was placed as a field block prior to insertion of all instruments. Exofin was applied to the skin. At the end of the procedure needle, sponge, and instrument count had been verified correct by the surgical territory manager. The patient was transferred to postanesthesia care unit in stable condition. Console time 65 minutes Plan - Discharge Summary Discharge Rx Participant: No New Discharge Prescriptions: New Acetaminophen [Tylenol] 325 mg PO Q4H #30 tab Simethicone 40 mg/0.6 ml Drops [Mylicon Drops] 40 mg PO Q6HR PRN #30 ml PRN Reason: Abdominal Distention HYDROcodone/APAP 5-325MG [[place] 5-325] 1 tab PO Q6HR PRN 3 Days #10 tab PRN Reason: Pain Continue Calcium Carbonate 500 mg PO BID Vitamin A Acetate [Vitamin A] 10,000 unit SL DAILY Omeprazole 40 mg PO W/SUPPER Nascobal 1 spray NASAL Q14D Levonorgestrel [Mirena] 1 each IY DIRECTED Multivitamins, Thera [Multivitamin (formulary)] 1 tab PO DAILY clonazePAM [KlonoPIN] 0.5 mg PO DAILY PRN PRN Reason: Anxiety Venlafaxine HCl [Effexor] 37.5 mg PO BID Gabapentin [Neurontin] 100 mg PO BID Nystatin 100,000 Unit/gm Powd [Mycostatin Powder] 1 applic TOPICAL TID PRN PRN Reason: Skin Irritation Iron 45mg/Vitamin C 60 Mg 1 tab PO DAILY Discharge Medication List Calcium Carbonate 500 mg PO BID 05/24/18 [History] Levonorgestrel [Mirena] 1 each IY DIRECTED 05/24/18 [History] Nascobal 1 spray NASAL Q14D 05/24/18 [History] Omeprazole 40 mg PO W/SUPPER 05/24/18 [History] Vitamin A Acetate [Vitamin A] 10,000 unit SL DAILY 05/24/18 [History] Multivitamins, Thera [Multivitamin (formulary)] 1 tab PO DAILY 05/27/18 [History] clonazePAM [KlonoPIN] 0.5 mg PO DAILY PRN 08/22/18 [History] Gabapentin [Neurontin] 100 mg PO BID 10/03/18 [History] Iron 45mg/Vitamin C 60 Mg 1 tab PO DAILY 10/03/18 [History] Nystatin 100,000 Unit/gm Powd [Mycostatin Powder] 1 applic TOPICAL TID PRN 10/03/18 [History] Venlafaxine HCl [Effexor] 37.5 mg PO BID 10/03/18 [History] Acetaminophen [Tylenol] 325 mg PO Q4H #30 tab 10/14/18 [Rx] HYDROcodone/APAP 5-325MG [[place] 5-325] 1 tab PO Q6HR PRN 3 Days #10 tab 10/14/18 [Rx] Simethicone 40 mg/0.6 ml Drops [Mylicon Drops] 40 mg PO Q6HR PRN #30 ml 10/14/18 [Rx] Follow up Appointment(s)/Referral(s): [facility] [[facility]-STAFF] - 10/16/18 Patient Instructions/Handouts: *Surgery [facility] - (Anesthesia) Discharge Instructions Outpatient Surgery, Lysis of Abdominal Adhesions (DC) Activity/Diet/Wound Care/Special Instructions: Liquid diet today. Soft diet tomorrow. September shower. No bathtub soaks for 1 week. No lifting over 10 pounds to October 21 Discharge Disposition: HOME SELF-CARE
[2018-10-14 11:19] VITALS: BP 111/73; PULSE 91; RESP 18
== END 2018-10-14 11:13 | disposition home or self-care (01) ==
LOC: OR 05:51
PROVIDERS: ATTEND Surgery Plastic and Reconstructive Surgery
DX: K66.0 Peritoneal adhesions (postprocedural) (postinfection) (principal); Z98.84 Bariatric surgery status; F32.9 Major depressive disorder, single episode, unspecified; F41.9 Anxiety disorder, unspecified; K58.9 Irritable bowel syndrome, unspecified; K56.2 Volvulus; K59.00 Constipation, unspecified; E50.9 Vitamin A deficiency, unspecified; E66.01 Morbid (severe) obesity due to excess calories; Z68.41 Body mass index [BMI] 40.0-44.9, adult; K21.9 Gastro-esophageal reflux disease without esophagitis; M17.0 Bilateral primary osteoarthritis of knee; M47.9 Spondylosis, unspecified; G47.33 Obstructive sleep apnea (adult) (pediatric); R13.10 Dysphagia, unspecified; M79.3 Panniculitis, unspecified; Z97.5 Presence of (intrauterine) contraceptive device; Z79.899 Other long term (current) drug therapy
CPT/HCPCS: 81025; 49329; J2250; J1644; J1100; J2710; J2405; J2001; J3010; J2704; J0690

== ENCOUNTER → 2018-10-16 | Outpatient (CLI) | payer BC ==
[2018-10-16 14:06] VITALS: BP 107/67; PULSE 83; RESP 16; TEMP 98.3; BMI 23.3
--- NOTE | 2018-10-16 14:47 | P.PN ---
Subjective Progress Note Date: 10/16/18 DATE OF SERVICE: 10/16/2018 CHEIF COMPLAINT: Abdominal pain HISTORY OF PRESENT ILLNESS: Dory Short is a 33-year-old female who is status post lysis of adhesions, 10/14/2018. She has incisional pain. She has moderate itching from the utility drapes. She is taking benadryl. She is passing gas and flatus. She notices more freedom in her bowel and less abdominal pain. She reports heartburn for the last 3 days. At her height of 5 foot 5 inches, her ideal body weight is 149 pounds. Her highest weight was 246 pounds. Today she comes in 140 pounds from 146 pounds, 3 months ago. She has lost 6 pounds in 3 months. Her body mass index is reduced from 41.0 down to 23.3. Lifetime weight loss, 106 pounds. Percent excess weight loss is 110 %. PHYSICAL EXAM: VITAL SIGNS: Height 5 foot 5 inches, weight 140 pounds. BMI 23.3 Vital Signs Temp 98.3 F 10/16/18 14:04 Pulse 83 10/16/18 14:04 Resp 16 10/16/18 14:04 BP 107/67 10/16/18 14:04 Pulse Ox GENERAL: Well-developed in no acute distress. HEENT: No scleral icterus. Extraocular movements grossly intact. Hears conversational speech. No nasal drainage. NECK: Supple without lymphadenopathy. CHEST: Nonlabored respirations with equal bilateral excursions. CARDIOVASCULAR: Regular rate. Regular rhythm. Distal 2+ pulses. ABDOMEN: Soft, nontender, nondistended. Incision are clean, dry and intact. Incisions are without infections. MUSCULOSKELETAL: No clubbing, cyanosis. No lower extremity edema. NEURO: No focal or lateralizing signs. Cranial nerves 2 through 12 grossly within normal limits. PSYCH: Appropriate affect. Alert and oriented to person, place and time. SKIN: Good skin turgor. Well perfused. ASSESSMENT: 1. Morbid obesity due to excess calories. 2. Body mass index of 41.0 down to 23.3 3. Osteoarthritis of the knees. 4. Obstructive sleep apnea. 5. Osteoarthritis of the back. 6. Irritable bowel syndrome. 7. Dietary surveillance and counseling. 8. Food ALLERGIES 9. Family history of morbid obesity. 10. Family history of heart disease. 11. Gastroesophageal reflux disease 12. Status post gastric bypass 13. Vitamin A deficiency 14. Dysphagia 15. Panniculitis 16. Eating disorder 17. Left upper abdomen 18. Peritoneal adhesion PLAN: 1. Take Omeprazole for 14 days from surgery until October 25. 2. Recommend emily tea for nausea. Objective - Vital Signs Vital signs: Vital Signs Temp 98.3 F 10/16/18 14:04 Pulse 83 10/16/18 14:04 Resp 16 10/16/18 14:04 BP 107/67 10/16/18 14:04 Pulse Ox Intake & Output 10/15/18 10/16/18 10/16/18 18:59 06:59 18:59 Weight 63.503 kg
== END | disposition home or self-care (01) ==
LOC: BARWHC3 13:32
PROVIDERS: ATTEND Surgery Plastic and Reconstructive Surgery
DX: E66.01 Morbid (severe) obesity due to excess calories (principal); M17.0 Bilateral primary osteoarthritis of knee; G47.33 Obstructive sleep apnea (adult) (pediatric); K21.9 Gastro-esophageal reflux disease without esophagitis; R13.10 Dysphagia, unspecified; R10.12 Left upper quadrant pain; K58.9 Irritable bowel syndrome, unspecified; M19.90 Unspecified osteoarthritis, unspecified site; E50.9 Vitamin A deficiency, unspecified; M79.3 Panniculitis, unspecified; F50.9 Eating disorder, unspecified; K66.0 Peritoneal adhesions (postprocedural) (postinfection); Z68.23 Body mass index [BMI] 23.0-23.9, adult; Z71.3 Dietary counseling and surveillance; Z98.84 Bariatric surgery status; Z91.018 Allergy to other foods; Z82.49 Family history of ischemic heart disease and other diseases of the circulatory system; Z84.89 Family history of other specified conditions
CPT/HCPCS: 99211

== ENCOUNTER 2018-10-21 14:25 | Emergency (ER) | payer BC ==
[2018-10-21 15:34] VITALS: RESP 16; TEMP 98.1
[2018-10-21 16:37] LABS: Appearance,Urine Clear (Clear); Basophils % (A) 1 %; Bilirubin,Urine Negative (Negative); Blood,Urine Negative (Negative); Color,Urine Yellow; Eosinophils # (A) 0.2 k/uL (0-0.7); Eosinophils % (A) 4 %; Glucose,Urine (UA) Negative (Negative); HCT 42.2 % (34.0-46.0); HGB 14.2 gm/dL (11.4-16.0); Ketones,Urine Negative (Negative); Leukocyte Esterase,Urine Negative (Negative); Lymphocytes # (A) 2.5 k/uL (1.0-4.8); Lymphocytes % (A) 41 %; MCHC 33.6 g/dL (31.0-37.0); MCV 92.3 fL (80.0-100.0); Mean Platelet Volume 6.7; Monocytes # (A) 0.4 k/uL (0-1.0); Monocytes % (A) 6 %; Neutrophils # (A) 2.9 k/uL (1.3-7.7); Neutrophils % (A) 47 %; Nitrite,Urine Negative (Negative); PH, Urine 5.5 (5.0-8.0); Platelet Count 332 k/uL (150-450); Protein,Urine Negative (Negative); RBC 4.57 m/uL (3.80-5.40); RDW 13.2 % (11.5-15.5); Specific Gravity,Urine 1.029 (1.001-1.035); WBC 6.1 k/uL (3.8-10.6)
[2018-10-21 16:44] LABS: ALT 179 U/L (9-52); AST 63 U/L (14-36); African American GFR (CKD) >90 (>60 ml/min/1.73 sqM); Albumin 4.7 g/dL (3.5-5.0); Alkaline Phosphatase 173 U/L (38-126); Anion Gap 11 mmol/L; Blood Urea Nitrogen 15 mg/dL (7-17); Calcium 9.8 mg/dL (8.4-10.2); Carbon Dioxide 27 mmol/L (22-30); Chloride 103 mmol/L (98-107); Glucose 84 mg/dL (74-99); Potassium 4.3 mmol/L (3.5-5.1); Sodium 141 mmol/L (137-145); Total Bilirubin 0.4 mg/dL (0.2-1.3); Total Protein 8.1 g/dL (6.3-8.2)
[2018-10-21] MEDS ORDERED: SODIUM CHLORIDE 0.9% 1,000 ML IV STA ×2 (17:48)
[2018-10-21 17:49] LABS: Partial Thromboplastin Time 24.8 sec (22.0-30.0); Prothrombin Time 10.3 sec (9.0-12.0)
[2018-10-21] MEDS ORDERED: ONDANSETRON 4 MG/2 ML VIAL IVP STA (17:49)
[2018-10-21 18:18] LABS: Magnesium 2.1 mg/dL (1.6-2.3); Phosphorus 4.7 mg/dL (2.5-4.5)
--- NOTE | 2018-10-21 19:04 | ED ---
Dizziness HPI - General Chief Complaint: Syncope Stated Complaint: Syncope Time Seen by Provider: 10/21/18 17:31 Source: patient Mode of arrival: ambulatory Limitations: no limitations - History of Present Illness Initial Comments: This 33-year-old white female presents with a complaint of getting very dizzy, lightheaded, and presyncopal which occurs primarily with standing and slight exertion of walking. She relates that this is been going on for the past several days and today she had a syncopal episode. She apparently fell to the ground but denies any injuries. She thinks that she may have had a seizure as she woke up at one point and it seemed as though her body was shaking. She denies any previous seizures. She does relate that she had some abdominal surgery for lysis of adhesions a couple weeks ago but has been doing fairly well post surgical. She does state that she thinks she has an ALLERGIC reaction to the Dermabond-type material over her wounds and she's had a slight rash in that area. She denies any fevers or chills. She denies there being any possibility of . She does relate that she has not been eating or drinking as much recently and she has not had much of an appetite and has had some slight nausea. No other identifiable complaints or modifying factors. She does relate that she measured her pulse rate from sitting to standing at home and states that it went up 41 from sitting to standing. - Related Data Home Medications Medication Instructions Recorded Confirmed Calcium Carbonate 500 mg PO BID 05/24/18 10/21/18 Levonorgestrel [Mirena] 1 each IY DIRECTED 05/24/18 10/21/18 Omeprazole 40 mg PO W/SUPPER 05/24/18 10/21/18 Vitamin A Acetate [Vitamin A] 10,000 unit SL DAILY 05/24/18 10/21/18 Multivitamins, Thera [Multivitamin 1 tab PO DAILY 05/27/18 10/21/18 (formulary)] clonazePAM [KlonoPIN] 0.5 mg PO DAILY PRN 08/22/18 10/21/18 Iron 45mg/Vitamin C 60 Mg 1 tab PO DAILY 10/03/18 10/21/18 Venlafaxine HCl [Effexor] 37.5 mg PO BID 10/03/18 10/21/18 Gabapentin [Neurontin] 100 mg PO BID 10/16/18 10/21/18 Previous Rx's Medication Instructions Recorded Acetaminophen [Tylenol] 325 mg PO Q4H #30 tab 10/14/18 Simethicone 40 mg/0.6 ml Drops 40 mg PO Q6HR PRN #30 ml 10/14/18 [Mylicon Drops] Allergies Allergy/AdvReac Type Severity Reaction Status Date / Time Penicillins Allergy Itching Verified 10/21/18 17:45 Review of Systems ROS Statement: Those systems with pertinent positive or pertinent negative responses have been documented in the HPI. ROS Other: All systems not noted in ROS Statement are negative. Past Medical History Past Medical History: No Reported History Additional Past Medical History / Comment(s): Hx IBS, heartburn. DYSPHAGIA FOR PAST WEEK. History of Any Multi-Drug Resistant Organisms: None Reported Past Surgical History: Back Surgery, Bariatric Surgery, Cholecystectomy, Orthopedic Surgery Additional Past Surgical History / Comment(s): Rt knee arthroscopy., Gastric Bypass 08-20-17, laminectomy/discectomy. EGD, COLONOSCOPY; EGD W/ DILATION 05/2018.lysis of adhesions Past Anesthesia/Blood Transfusion Reactions: Motion Sickness Past Psychological History: Anxiety Smoking Status: Never smoker Past Alcohol Use History: Rare Past Drug Use History: None Reported - Past Family History Mother Family Medical History: No Reported History General Exam - General Exam Comments Initial Comments: GENERAL: The patient is well nourished and well hydrated. VITAL SIGNS: Heart rate, blood pressure, respiratory rate reviewed as recorded in nurse's notes. EYES: Pupils are round and reactive. Extraocular movements are intact. No conjunctival / lid redness or swelling. ENT: No external evidence of injury, swelling, or ecchymosis. Airway is patent. Throat is clear. NECK: Nontender. No swelling or evidence of injury. No subcutaneous emphysema. Trachea is midline. No thyroid mass. HEART: Regular rate and rhythm. Good peripheral pulses. LUNGS/CHEST: Breath sounds clear and equal bilaterally. No rales, rhonchi, or wheezes. No ecchymosis, subcutaneous emphysema, or tenderness. ABDOMEN: Abdomen soft without tenderness. No palpable masses or organomegaly. No peritoneal signs. No abdominal wall swelling or ecchymosis. EXTREMITIES: No extremity tenderness. Normal muscle tone and function. No thoracolumbar tenderness. NEUROLOGIC: Sensation is grossly intact. Cranial nerve exam reveals face is symmetrical, tongue is midline, speech is clear. SKIN: There is a rash noted to the abdomen. This is directly over her postsurgical area where there is some skin glue. There is some mild erythema around the area but no fluctuance. PSYCHIATRIC: Alert and oriented. Appropriate behavior and judgment. Limitations: no limitations Course Vital Signs 10/21/18 10/21/18 10/21/18 15:30 16:23 18:30 Temperature 98.1 F Pulse Rate 95 77 Pulse Rate [ 97 Sitting Pulse Oximetery] Pulse Rate [ 105 H Standing Pulse Oximetery] Pulse Rate [ 87 Supine Pulse Oximetery] Respiratory 16 Rate Blood Pressure 104/71 106/61 Blood Pressure 111/64 [Right Arm Sitting] Blood Pressure 104/65 [Right Arm Standing] Blood Pressure 110/58 [Right Arm Supine] O2 Sat by Pulse 98 100 Oximetry 10/21/18 10/21/18 10/21/18 19:00 19:30 20:00 Temperature Pulse Rate 72 80 84 Pulse Rate [ Sitting Pulse Oximetery] Pulse Rate [ Standing Pulse Oximetery] Pulse Rate [ Supine Pulse Oximetery] Respiratory Rate Blood Pressure 96/64 105/68 91/68 Blood Pressure [Right Arm Sitting] Blood Pressure [Right Arm Standing] Blood Pressure [Right Arm Supine] O2 Sat by Pulse 100 Oximetry 10/21/18 21:00 Temperature Pulse Rate 85 Pulse Rate [ Sitting Pulse Oximetery] Pulse Rate [ Standing Pulse Oximetery] Pulse Rate [ Supine Pulse Oximetery] Respiratory 16 Rate Blood Pressure 106/92 Blood Pressure [Right Arm Sitting] Blood Pressure [Right Arm Standing] Blood Pressure [Right Arm Supine] O2 Sat by Pulse 99 Oximetry Medical Decision Making - Medical Decision Making The patient was seen and examined. All diagnostics are reviewed. She is thoroughly hydrated does receive some Zofran intravenously as well. The laboratory overall is unremarkable. The computed tomography scan of the brain does not show any acute processes. She was able to ambulate without any difficulty in the emergency department. She states that this seems better especially if she takes her time. Overall, it seems as though she has a degree of orthostatic hypotension. She is counseled significantly regarding increasing fluid hydration and safe ambulation. She understands and leaves in no distress. Return parameters are discussed. - Lab Data Result diagrams: 10/21/18 16:15 10/21/18 16:15 Lab Results 10/21/18 10/21/18 10/21/18 Range/Units 16:15 16:15 16:15 WBC 6.1 (3.8-10.6) k/uL RBC 4.57 (3.80-5.40) m/uL Hgb 14.2 (11.4-16.0) gm/dL Hct 42.2 (34.0-46.0) % MCV 92.3 (80.0-100.0) fL MCH 31.0 (25.0-35.0) pg MCHC 33.6 (31.0-37.0) g/dL RDW 13.2 (11.5-15.5) % Plt Count 332 (150-450) k/uL Neutrophils % 47 % Lymphocytes % 41 % Monocytes % 6 % Eosinophils % 4 % Basophils % 1 % Neutrophils # 2.9 (1.3-7.7) k/uL Lymphocytes # 2.5 (1.0-4.8) k/uL Monocytes # 0.4 (0-1.0) k/uL Eosinophils # 0.2 (0-0.7) k/uL Basophils # 0.0 (0-0.2) k/uL PT 10.3 (9.0-12.0) sec INR 1.0 (<1.2) APTT 24.8 (22.0-30.0) sec Sodium 141 (137-145) mmol/L Potassium 4.3 (3.5-5.1) mmol/L Chloride 103 (98-107) mmol/L Carbon Dioxide 27 (22-30) mmol/L Anion Gap 11 mmol/L BUN 15 (7-17) mg/dL Creatinine 0.60 (0.52-1.04) mg/dL Est GFR (CKD-EPI)AfAm >90 (>60 ml/min/1.73 sqM) Est GFR (CKD-EPI)NonAf >90 (>60 ml/min/1.73 sqM) Glucose 84 (74-99) mg/dL Calcium 9.8 (8.4-10.2) mg/dL Phosphorus (2.5-4.5) mg/dL Magnesium (1.6-2.3) mg/dL Total Bilirubin 0.4 (0.2-1.3) mg/dL AST 63 H (14-36) U/L ALT 179 H (9-52) U/L Alkaline Phosphatase 173 H (38-126) U/L Troponin I (0.000-0.034) ng/mL Total Protein 8.1 (6.3-8.2) g/dL Albumin 4.7 (3.5-5.0) g/dL Urine Color Urine Appearance (Clear) Urine pH (5.0-8.0) Ur Specific [place] (1.001-1.035) Urine Protein (Negative) Urine Glucose (UA) (Negative) Urine Ketones (Negative) Urine Blood (Negative) Urine Nitrite (Negative) Urine Bilirubin (Negative) Urine Urobilinogen (<2.0) mg/dL Ur Leukocyte Esterase (Negative) 10/21/18 10/21/18 10/21/18 Range/Units 16:15 16:15 16:15 WBC (3.8-10.6) k/uL RBC (3.80-5.40) m/uL Hgb (11.4-16.0) gm/dL Hct (34.0-46.0) % MCV (80.0-100.0) fL MCH (25.0-35.0) pg MCHC (31.0-37.0) g/dL RDW (11.5-15.5) % Plt Count (150-450) k/uL Neutrophils % % Lymphocytes % % Monocytes % % Eosinophils % % Basophils % % Neutrophils # (1.3-7.7) k/uL Lymphocytes # (1.0-4.8) k/uL Monocytes # (0-1.0) k/uL Eosinophils # (0-0.7) k/uL Basophils # (0-0.2) k/uL PT (9.0-12.0) sec INR (<1.2) APTT (22.0-30.0) sec Sodium (137-145) mmol/L Potassium (3.5-5.1) mmol/L Chloride (98-107) mmol/L Carbon Dioxide (22-30) mmol/L Anion Gap mmol/L BUN (7-17) mg/dL Creatinine (0.52-1.04) mg/dL Est GFR (CKD-EPI)AfAm (>60 ml/min/1.73 sqM) Est GFR (CKD-EPI)NonAf (>60 ml/min/1.73 sqM) Glucose (74-99) mg/dL Calcium (8.4-10.2) mg/dL Phosphorus 4.7 H (2.5-4.5) mg/dL Magnesium 2.1 (1.6-2.3) mg/dL Total Bilirubin (0.2-1.3) mg/dL AST (14-36) U/L ALT (9-52) U/L Alkaline Phosphatase (38-126) U/L Troponin I <0.012 (0.000-0.034) ng/mL Total Protein (6.3-8.2) g/dL Albumin (3.5-5.0) g/dL Urine Color Yellow Urine Appearance Clear (Clear) Urine pH 5.5 (5.0-8.0) Ur Specific [place] 1.029 (1.001-1.035) Urine Protein Negative (Negative) Urine Glucose (UA) Negative (Negative) Urine Ketones Negative (Negative) Urine Blood Negative (Negative) Urine Nitrite Negative (Negative) Urine Bilirubin Negative (Negative) Urine Urobilinogen 2.0 (<2.0) mg/dL Ur Leukocyte Esterase Negative (Negative) Disposition Clinical Impression: Syncopal episodes, Orthostatic hypotension, Dehydration, Nausea Disposition: HOME SELF-CARE Condition: Good Instructions (If sedation given, give patient instructions): Syncope (ED) Is patient prescribed a controlled substance at d/c from ED?: No Referrals: Jerome Roberson MD [Primary Care Provider] - 1-2 days Time of Disposition: 21:50
[2018-10-21] MEDS ORDERED: diphenhydrAMINE 50 MG/ML 1 ML VIAL IVP STA (20:11)
[2018-10-21 21:35] VITALS: BP 106/92; PULSE 85
--- NOTE | 2018-10-21 21:39 | CT ---
EXAMINATION: CT brain wo con DATE AND TIME: 10/21/2018 8:29 PM CLINICAL INDICATION: PHH; syncope TECHNIQUE: Standard departmental protocol.; 1099.4; COMPARISON: 07/01/2018 CT FINDINGS: The calvarium is intact. There is no intracranial hemorrhage. There is no intracranial mass or mass effect. No definite new intra-axial or extra-axial attenuation defect. The paranasal sinuses, middle ear cavities, and mastoid sinus air cells are clear. The orbits are unremarkable. IMPRESSION: NO ACUTE PROCESS.
== END 2018-10-21 22:23 | disposition home or self-care (01) ==
LOC: EC 14:25
DX: I95.1 Orthostatic hypotension (principal); E86.0 Dehydration; R11.0 Nausea; R21 Rash and other nonspecific skin eruption; F41.9 Anxiety disorder, unspecified; K58.9 Irritable bowel syndrome, unspecified; Z90.49 Acquired absence of other specified parts of digestive tract; Z98.84 Bariatric surgery status; Z98.890 Other specified postprocedural states; Z79.3 Long term (current) use of hormonal contraceptives; Z79.899 Other long term (current) drug therapy; Z88.0 Allergy status to penicillin
CPT/HCPCS: 36415; 93005; 80053; 83735; 84100; 84484; 85025; 85610; 85730; 81003; 70450; 99284; 96374; 96375; 96361 ×4; J1200; J2405

== ENCOUNTER → 2018-10-24 | Outpatient (CLI) | payer BC ==
[2018-10-24 10:46] VITALS: BP 116/81; PULSE 82; TEMP 98.2; BMI 22.9
--- NOTE | 2018-10-24 11:03 | P.PN ---
Subjective Progress Note Date: 10/24/18 HPI: She comes in with passing out. ABDOMEN: Incisions with contact dermatitis PLAN: 1. Referral to college counselor for syncopal episodes 2. New allergy to skin glue Objective - Vital Signs Vital signs: Vital Signs Temp 98.2 F 10/24/18 10:44 Pulse 82 10/24/18 10:44 Resp BP 116/81 10/24/18 10:44 Pulse Ox Intake & Output 10/23/18 10/24/18 10/24/18 18:59 06:59 18:59 Weight 62.596 kg
== END | disposition home or self-care (01) ==
LOC: BARWHC3 09:58
PROVIDERS: ATTEND Surgery Plastic and Reconstructive Surgery
DX: L25.9 Unspecified contact dermatitis, unspecified cause (principal)
CPT/HCPCS: 99211

== ENCOUNTER 2018-12-24 09:45 | Day surgery (SDC) | payer BC ==
[2018-12-18 12:10] VITALS: BMI 23.4
[~2018-12-24 09:45] MED LIST changes: -DEXAMETHASONE SOD PHOSPHATE 10 MG/ML 1 ML VIAL IV ONE; -LACTATED RINGERS 1,000 ML IV SCH; -LIDOCAINE 1% 20 ML VIAL (10MG/ML) FOR IV START INTRADERMA PRN; -MIDAZOLAM 2 MG/2 ML VIAL IV PRN; -Pre Op ABX Message 1 EACH MISC MISCELLANE ONE; +SODIUM CHLORIDE 0.9% 1,000 ML IV SCH
[2018-12-24] MEDS ORDERED: SODIUM CHLORIDE 0.9% 500 ML 500 ML IV ONE (10:08)
[2018-12-24 10:12] VITALS: PULSE 81; TEMP 97.8
[2018-12-24 12:10] VITALS: BP 128/59; RESP 20
--- NOTE | 2018-12-24 15:36 | P.PCN ---
Preoperative Diagnosis: Reoperative diagnosis: Recurrent syncope Twelve-lead E 80 CT shows sinus mechanism with normal MS, narrow QRS, normal ST segments, no delta waves, no epsilon waves, normal QT interval Patient underwent tilt table test per protocol. Baseline blood pressure was 107/69, heart rate was 73 Patient was tilted upright at a 70 angle per protocol Within 14 minutes the patient became syncopal, blood pressure dropped to 82/39, heart rate didier to 94, unclear site the lowest blood pressure according was 50/40 When she was laid supine her blood pressure normalized to 116/57, heart rate 86 Prior to passing out she felt flushed, nauseous and looked pale Also noted a ringing in her ears Impression Normal twelve-lead EKG Neurocardiogenic response to upright tilt table
== END 2018-12-24 12:29 | disposition home or self-care (01) ==
LOC: CATHEP 09:45
PROVIDERS: ATTEND Internal Medicine Clinical Cardiac Electrophysiology
DX: R55 Syncope and collapse (principal)
CPT/HCPCS: 81025; 93660

== ENCOUNTER → 2019-04-01 | Outpatient (CLI) | payer BC ==
--- NOTE | 2019-04-01 07:41 | US ---
EXAMINATION TYPE: US abdomen complete DATE OF EXAM: 04/01/2019 COMPARISON: US 08/11/2011 CLINICAL HISTORY: R74.8 Elevated liver enzymes. Patient taking [place]. EXAM MEASUREMENTS: Liver Length: 16.7 cm Gallbladder Wall: Surgically absent cm CBD: 0.6 cm Spleen: 10.8 cm Right Kidney: 10.8 x 5.5 x 5.0 cm Left Kidney: 10.9 x 5.7 x 5.4 cm Pancreas: Body and Tail obscured by overlying bowel gas Liver: homogeneous texture. No masses seen. Gallbladder: wnl Evidence for sonographic Garcia's sign: No CBD: wnl Spleen: wnl Right Kidney: No hydronephrosis or masses seen Left Kidney: No hydronephrosis or masses seen Upper IVC: wnl Abd Aorta: Mid portion partially obstructed by bowel gas. The liver is homogenous. The intrahepatic portion of the IVC and proximal abdominal aorta are within normal limits. There is no evidence of cholelithiasis. Common bile duct is unremarkable. The visu alized portions of the pancreas are homogenous. The spleen is unremarkable. Kidneys are symmetric a nd free of hydronephrosis. No renal lesions are seen. IMPRESSION: Liver is homogeneous sonographically despite abnormal liver function tests. No focal adalid l mass is seen. Unremarkable abdominal ultrasound.
== END | disposition home or self-care (01) ==
LOC: RADUSWWP 06:48
PROVIDERS: ATTEND Family Medicine
DX: R94.5 Abnormal results of liver function studies (principal)
CPT/HCPCS: 76700

== ENCOUNTER → 2019-04-09 | Outpatient (CLI) | payer BC ==
[2019-04-09 14:31] VITALS: BP 123/73; PULSE 102; TEMP 98.1; BMI 23.8
--- NOTE | 2019-04-09 14:40 | P.PN ---
Subjective Progress Note Date: 04/09/19 DATE OF SERVICE: 04/09/2019 MALI COMPLAINT: Abdominal pain HISTORY OF PRESENT ILLNESS: Dory Short is a 34-year-old female who is status post gastric bypass, 08/20/17. She is over 1.5 years out. She comes in with chronic dehydration. She is under physical therapy for her recurrent back pain She is taking multivitamin, bariatric advantage. She is on a probiotic. She is on [place] for her back pain. She is taking magnesium. She looks great. She is pending surgery for her back. She reports 3 months of heartburn at least 3 to 4 x per day. She reports no improvement with omeprazole. She reports new left upper quadrant pain. At her height of 5 foot 5 inches, her ideal body weight is 149 pounds. Her highest weight was 246 pounds. Today she comes in 143 pounds from 138 pounds, 5 months ago. She has gained 5 pounds in 5 months. Her body mass index is reduced from 41.0 down to 23.8. Lifetime weight loss, 103 pounds. Percent excess weight loss is 106 %. PAST MEDICAL HISTORY: 1. Morbid obesity. 2. Body mass index of 40.6, initial. 3. Osteoarthritis of the knees. 4. Irritable bowel syndrome. 5. Anxiety. 6. Osteoarthritis of the lower back. 7. Gastroesophageal reflux disease PAST SURGICAL HISTORY: 1. Lower endoscopy. 2. Cholecystectomy. 3. Gastric bypass 4. Back surgery HOME MEDICATIONS: 1. Lomotil. 2. Bentyl. 3. [place] ALLERGIES: Penicillin Dermabond SOCIAL HISTORY: No active tobacco use. FAMILY HISTORY: No family history of ulcerative colitis disease or Crohn's disease. Family history of morbid obesity. No lupus in family. No reports of stomach or esophageal cancer. Family history of heart disease. Aunt with gastric bypass. REVIEW OF ORGAN SYSTEMS: CONSTITUTIONAL: At her height of 5 foot 5 inches, her ideal body weight is 149 pounds. Her highest weight was 246 pounds. Her body mass index was 41.0. HEENT: Denies any active troubles with vision or hearing. No troubles with swallowing. ENDOCRINE: No diabetes. No hypothyroidism. CARDIOVASCULAR: No reports of palpitations or heart attacks or chest pain. RESPIRATORY: Has daytime somnolence now resolved. No asthma. GI: Denies any bright red blood per rectum. Has diarrhea. Previous endoscopies MUSCULOSKELETAL: Has lower back pain and joint pain. Has osteoarthritis of the knees. NEURO: No headaches. No seizure disorders. PSYCH: No depression or suicidal ideation. RHEUMATOLOGIC: No lupus. No rheumatoid arthritis. HEMATOLOGIC: Denies any abnormal bleeding or bruising. No personal history of DVTs. SKIN: No rash. No skin cancer. PHYSICAL EXAM: VITAL SIGNS: Height 5 foot 5 inches, weight 143 pounds. BMI 23.8 Vital Signs Temp 98.1 F 04/09/19 14:28 Pulse 102 H 04/09/19 14:28 Resp BP 123/73 04/09/19 14:28 Pulse Ox GENERAL: Well-developed in no acute distress. HEENT: No scleral icterus. Extraocular movements grossly intact. Hears conversational speech. No nasal drainage. NECK: Supple without lymphadenopathy. CHEST: Nonlabored respirations with equal bilateral excursions. CARDIOVASCULAR: Tachycardic Distal 2+ pulses. ABDOMEN: Sot, non-distended. No peritonitis. Has panniculitis. MUSCULOSKELETAL: No clubbing, cyanosis. No lower extremity edema. NEURO: No focal or lateralizing signs. Cranial nerves 2 through 12 grossly within normal limits. PSYCH: Appropriate affect. Alert and oriented to person, place and time. SKIN: Good skin turgor. Well perfused. ASSESSMENT: 1. Morbid obesity due to excess calories. 2. Body mass index of 41.0 down to 23.8 3. Osteoarthritis of the knees. 4. Obstructive sleep apnea. 5. Osteoarthritis of the back. 6. Irritable bowel syndrome. 7. Dietary surveillance and counseling. 8. Food ALLERGIES 9. Family history of morbid obesity. 10. Family history of heart disease. 11. Gastroesophageal reflux disease 12. Status post gastric bypass 13. Vitamin A deficiency 14. Dysphagia 15. Panniculitis 16. Eating disorder 17. Left upper abdomen pain 18. Peritoneal adhesion 19. Syncopal episodes. 20. Contact allergies PLAN: 1. Recommend CT abdomen and pelvis for left upper quadrant abdominal pain. 2. Recommend EGD with dilation. 3. For panniculitis, recommend Nystatin powder 4. May benefit from panniculectomy for recurrent panniculitis Objective - Vital Signs Vital signs: Vital Signs Temp 98.1 F 04/09/19 14:28 Pulse 102 H 04/09/19 14:28 Resp BP 123/73 04/09/19 14:28 Pulse Ox Intake & Output 04/08/19 04/09/19 04/09/19 18:59 06:59 18:59 Weight 64.864 kg
== END | disposition home or self-care (01) ==
LOC: BARWHC3 13:32
PROVIDERS: ATTEND Surgery Plastic and Reconstructive Surgery
DX: Z48.815 Encounter for surgical aftercare following surgery on the digestive system (principal); E66.01 Morbid (severe) obesity due to excess calories; E86.0 Dehydration; M17.0 Bilateral primary osteoarthritis of knee; K58.9 Irritable bowel syndrome, unspecified; F41.9 Anxiety disorder, unspecified; M47.816 Spondylosis without myelopathy or radiculopathy, lumbar region; K21.9 Gastro-esophageal reflux disease without esophagitis; Z98.84 Bariatric surgery status; Z68.41 Body mass index [BMI] 40.0-44.9, adult
CPT/HCPCS: 99211

== ENCOUNTER → 2019-04-15 | Outpatient (CLI) | payer BC ==
--- NOTE | 2019-04-16 08:26 | MM ---
Reason for exam: screening (asymptomatic). Baseline mammogram. History: Family history of breast cancer in aunt. Taking hormonal contraceptives for 4 years beginning at age 30. Physical Findings: Nurse did not find any significant physical abnormalities on exam. MG Screening Mammo w CAD Bilateral CC and MLO view(s) were taken. The breast tissue is heterogeneously dense. This may lower the sensitivity of mammography. Finding: There is a 6 mm indistinct oval mass in the upper quadrant, anterior position of the left breast. These results were verbally communicated with the patient and result sheet given to the patient on 04/15/19. ASSESSMENT: Incomplete: need additional imaging evaluation, BI-RAD 0 RECOMMENDATION: Special view mammogram of the left breast.
--- NOTE | 2019-04-16 08:27 | MM ---
Reason for exam: additional evaluation requested from abnormal screening. History: Family history of breast cancer in aunt. Taking hormonal contraceptives for 4 years beginning at age 30. Physical Findings: Breast exam preformed at baseline screening. MG Work Up Mamm w CAD LT CC and MLO view(s) were taken of the left breast. Vague 6mm asymmetry does not go completely away on additional images. These results were verbally communicated with the patient and result sheet given to the patient on 04/15/19. ASSESSMENT: Incomplete: need additional imaging evaluation, BI-RAD 0 RECOMMENDATION: Ultrasound of the left breast.
--- NOTE | 2019-04-16 08:29 | USB ---
Reason for exam: additional evaluation requested from abnormal screening. History: Family history of breast cancer in aunt. Taking hormonal contraceptives for 4 years beginning at age 30. US Breast Workup Limited LT Left limited breast ultrasound including focal area of concern, retroareolar and axilla demonstrates a 0.5 x 0.6 x 0.3cm oval, lobular, cystic lesion at 12 o'clock, thin septated cyst and a 1.5 x 1.1 x 0.5cm oval, benign lymph node at the axilla. These results were verbally communicated with the patient and result sheet given to the patient on 04/15/19. ASSESSMENT: Benign, BI-RAD 2 RECOMMENDATION: Routine screening mammogram of both breasts at age 38.
== END | disposition home or self-care (01) ==
LOC: RADMAMWWP 12:40
PROVIDERS: ATTEND Obstetrics & Gynecology
DX: Z12.31 Encounter for screening mammogram for malignant neoplasm of breast (principal); R92.8 Other abnormal and inconclusive findings on diagnostic imaging of breast
CPT/HCPCS: 77065; 77067

== ENCOUNTER 2019-04-21 10:49 | Day surgery (SDC) | payer BC ==
[2019-04-17 15:53] VITALS: BMI 24.1
--- NOTE | 2019-04-20 19:51 | P.GSHP ---
History of Present Illness H&P Date: 04/21/19 CHIEF COMPLAINT: GERD HISTORY OF PRESENT ILLNESS: The patient is a 34-year-old female who presents reports gastroesophageal reflux disease. Upper endoscopy was offered for further evaluation and management. PAST MEDICAL HISTORY: Please see list. PAST SURGICAL HISTORY: Please see list. MEDICATIONS: Please see list. ALLERGIES: Please see list. SOCIAL HISTORY: No illicit drug use FAMILY HISTORY: No reports of Crohn disease or ulcerative colitis. REVIEW OF ORGAN SYSTEMS: CONSTITUTIONAL: No reports of fevers or chills. GI: Denies any blood in stools or constipation. PHYSICAL EXAM: VITAL SIGNS: Stable GENERAL: Well-developed and pleasant in no acute distress. HEENT: No scleral icterus. Extraocular movements grossly intact. Moist buccal mucosa. NECK: Supple without lymphadenopathy. CHEST: Unlabored respirations. Equal bilateral excursions. CARDIOVASCULAR: Regular rate and rhythm. Distal 2+ pulses. ABDOMEN: Soft, nondistended. MUSCULOSKELETAL: No clubbing, cyanosis, or edema. ASSESSMENT: 1. Gastroesophageal reflux disease PLAN: 1. Recommend proceeding with an upper endoscopy Past Medical History Past Medical History: GERD/Reflux, Syncope Additional Past Medical History / Comment(s): Hx IBS, syncope x 2 recently. ELEVATED LIVER ENZYME History of Any Multi-Drug Resistant Organisms: None Reported Past Surgical History: Back Surgery, Bariatric Surgery, Cholecystectomy, Orthopedic Surgery Additional Past Surgical History / Comment(s): Right knee arthroscopy, Gastric Bypass 08-20-17, laminectomy/discectomy, EGD, COLONOSCOPY, EGD W/ DILATION, lysis of adhesions. Past Anesthesia/Blood Transfusion Reactions: Motion Sickness Smoking Status: Never smoker - Past Family History Mother Family Medical History: No Reported History Medications and Allergies Home Medications Medication Instructions Recorded Confirmed Type Calcium Carbonate 500 mg PO BID 05/24/18 04/17/19 History Levonorgestrel [Mirena] 1 each IY DIRECTED 05/24/18 04/17/19 History Vitamin A Acetate [Vitamin A] 10,000 unit SL DAILY 05/24/18 04/17/19 History Multivitamins, Thera [Multivitamin 1 tab PO DAILY 05/27/18 04/17/19 History (formulary)] Iron 45mg/Vitamin C 60 Mg 1 tab PO DAILY 10/03/18 04/17/19 History Venlafaxine HCl [Effexor] 37.5 mg PO HS 10/03/18 04/17/19 History Gabapentin [Neurontin] 300 mg PO TID 10/16/18 04/17/19 History Simethicone 40 mg/0.6 ml Drops 40 mg PO BID 12/18/18 04/17/19 History [Mylicon Drops] Magnesium 400 mg PO DAILY 12/24/18 04/17/19 History Hydrocodone/Acetaminophen [[place] 2 tab PO Q8HR PRN 04/17/19 04/17/19 History 5-325] Nystatin 100,000 Unit/gm Powd 1 applic TOPICAL BID PRN 04/17/19 04/17/19 History [Mycostatin Powder] Omeprazole 40 mg PO DAILY 04/17/19 04/17/19 History Venlafaxine HCl [Effexor] 75 mg PO [id number] 04/17/19 04/17/19 History diphenhydrAMINE [Benadryl] 50 mg PO HS PRN 04/17/19 04/17/19 History Allergies Allergy/AdvReac Type Severity Reaction Status Date / Time Penicillins Allergy Itching Verified 04/17/19 15:26 dermabond Allergy Itching Uncoded 04/17/19 15:26
[~2019-04-21 10:49] MED LIST changes: +LACTATED RINGERS 1,000 ML IV SCH; +LIDOCAINE 1% 20 ML VIAL (10MG/ML) FOR IV START INTRADERMA PRN; -SODIUM CHLORIDE 0.9% 1,000 ML IV SCH
[2019-04-21 11:45] VITALS: TEMP 98.9
[2019-04-21] MEDS ORDERED: LIDOCAINE 1% INJ 10MG/ML (20 ML MDV) ONE (11:56)
[2019-04-21] MEDS ORDERED: PROPOFOL 10 MG/ML 20 ML VIAL IV ONE (11:56)
--- NOTE | 2019-04-21 12:10 | P.PCN ---
Date of Procedure: 04/21/19 Description of Procedure: PREOPERATIVE DIAGNOSIS: Dysphagia. Epigastric abdominal pain History of gastrojejunal stricture POSTOPERATIVE DIAGNOSIS: Dysphagia. Epigastric abdominal pain History of gastrojejunal stricture Esophageal stricture OPERATION: Esophagogastrojejunoscopy with balloon dilatation, 20 mm. SURGEON: Yaima Deshpande MD ANESTHESIA: MAC. INDICATIONS: The patient is a 34-year-old female who presents with a history of dysphagia and gastroesophageal strictures. Benefits and risks of the procedure were described. Informed consent was obtained. DESCRIPTION: The patient was brought into the endoscopy suite and laid in the left lateral decubitus position. After a timeout was confirmed, the procedure was initiated. An Olympus gastroscope was passed along the posterior oropharynx down to the distal esophagus where the squamocolumnar junction was unremarkable. The gastric pouch was entered. A gastrojejunal stricture of 18 mm was found as the adult gastroscope was 9.5 mm in size. A [employer] balloon dilator was placed through the scope. Additionally, the distal esophagus had spasms and was dilated with the balloon for strictures. Final insufflation up to 20 mm was performed with a total of 2 minutes. The scope was advanced up to 60 cm from the incisors into the Donaldo limb. The mucosa of the gastrojejunal anastomosis was intact. However no chronic gastrojejunal marginal ulcer was encountered. No full-thickness injury was encountered. The GI tract was desufflated. The patient tolerated the procedure well. FINDINGS: Stricture of approximately 18 mm encountered. No chronic gastrojejunal ulceration encountered. Successful balloon dilatation to 20 mm. Distal esophageal spasm also dilated RECOMMENDATIONS: Upper endoscopy as needed Plan - Discharge Summary Discharge Rx Participant: No New Discharge Prescriptions: No Action Calcium Carbonate 500 mg PO BID Vitamin A Acetate [Vitamin A] 10,000 unit SL DAILY Levonorgestrel [Mirena] 1 each IY DIRECTED Multivitamins, Thera [Multivitamin (formulary)] 1 tab PO DAILY Venlafaxine HCl [Effexor] 37.5 mg PO HS Iron 45mg/Vitamin C 60 Mg 1 tab PO DAILY Gabapentin [Neurontin] 300 mg PO TID Simethicone 40 mg/0.6 ml Drops [Mylicon Drops] 40 mg PO BID Magnesium 400 mg PO DAILY Hydrocodone/Acetaminophen [[place] 5-325] 2 tab PO Q8HR PRN PRN Reason: Pain diphenhydrAMINE [Benadryl] 50 mg PO HS PRN PRN Reason: SLEEP Venlafaxine HCl [Effexor] 75 mg PO AC-BRKFST Omeprazole 40 mg PO DAILY Nystatin 100,000 Unit/gm Powd [Mycostatin Powder] 1 applic TOPICAL BID PRN PRN Reason: Rash Discharge Medication List Calcium Carbonate 500 mg PO BID 05/24/18 [History] Levonorgestrel [Mirena] 1 each IY DIRECTED 05/24/18 [History] Vitamin A Acetate [Vitamin A] 10,000 unit SL DAILY 05/24/18 [History] Multivitamins, Thera [Multivitamin (formulary)] 1 tab PO DAILY 05/27/18 [History] Iron 45mg/Vitamin C 60 Mg 1 tab PO DAILY 10/03/18 [History] Venlafaxine HCl [Effexor] 37.5 mg PO HS 10/03/18 [History] Gabapentin [Neurontin] 300 mg PO TID 10/16/18 [History] Simethicone 40 mg/0.6 ml Drops [Mylicon Drops] 40 mg PO BID 12/18/18 [History] Magnesium 400 mg PO DAILY 12/24/18 [History] Hydrocodone/Acetaminophen [[place] 5-325] 2 tab PO Q8HR PRN 04/17/19 [History] Nystatin 100,000 Unit/gm Powd [Mycostatin Powder] 1 applic TOPICAL BID PRN 04/17/19 [History] Omeprazole 40 mg PO DAILY 04/17/19 [History] Venlafaxine HCl [Effexor] 75 mg PO AC-BRKFST 04/17/19 [History] diphenhydrAMINE [Benadryl] 50 mg PO HS PRN 04/17/19 [History] Follow up [facility]ment(s[facility] [place] [facility] - As Needed Patient Instructions/Handouts: Esophageal Dilation (DC) Activity/Diet/Wound Care/Special Instructions: Diet as tolerated Discharge Disposition: HOME SELF-CARE
[2019-04-21 12:30] VITALS: BP 102/67; PULSE 76; RESP 18
[2019-04-21] MEDS ORDERED: IV FLUID CONTINUATION 500 ML IV ONE (12:30)
== END 2019-04-21 12:52 | disposition home or self-care (01) ==
LOC: ORWHC2ENDO 10:49
PROVIDERS: ATTEND Surgery Plastic and Reconstructive Surgery
DX: K22.4 Dyskinesia of esophagus (principal); K91.89 Other postprocedural complications and disorders of digestive system; K31.89 Other diseases of stomach and duodenum; K58.9 Irritable bowel syndrome, unspecified; K21.9 Gastro-esophageal reflux disease without esophagitis; Z79.3 Long term (current) use of hormonal contraceptives; Z79.899 Other long term (current) drug therapy; Z88.0 Allergy status to penicillin; Z88.5 Allergy status to narcotic agent; Z91.048 Other nonmedicinal substance allergy status; Z98.84 Bariatric surgery status; Z90.49 Acquired absence of other specified parts of digestive tract
CPT/HCPCS: 81025; 43249; J2001; J2704

== ENCOUNTER → 2019-04-26 | Outpatient (CLI) | payer BC ==
--- NOTE | 2019-04-28 12:31 | CT ---
EXAMINATION TYPE: CT abdomen pelvis w con DATE OF EXAM: 04/26/2019 COMPARISON: None INDICATION: LUQ and LLQ pain DLP: 516.9 mGycm, Automated exposure control for dose reduction was used. CONTRAST: 100 mL of Isovue 300. Study performed with Oral Contrast TECHNIQUE: Axial images were obtained from above the diaphragm to the pubic rami in the axial plane a t 5 mm thick sections. Reconstructed images are reviewed on the computer in the coronal plane. FINDINGS: Limited CT sections are obtained the lung bases. The lung bases are clear. There is prior gastric s urgery. CT ABDOMEN: Liver: Normal Spleen: Normal Pancreas: Normal Adrenal glands: The adrenal glands are normal. Gallbladder: Surgically absent Kidneys: No masses are evident. No hydronephrosis is present. No cysts are present. Delayed images were obtained through the kidneys, which remain unremarkable. Aorta: Normal Inferior vena cava: Normal. CT PELVIS: Loops of bowel within the abdomen and pelvis are normal. There are loops of bowel which are incom pletely distended or lack oral contrast limiting their evaluation. There is mild fecal debris through out the colon. Appendix: Normal as visualized. Urinary bladder: Normal. Genitourinary structures: IUD is within the uterus. No free fluid is within the pelvis. Adnexal regio ns appear clear. Osseous structures: No suspicious lytic or sclerotic lesions. IMPRESSIONS: 1. No acute abdominal or pelvic changes. 2. Mild fecal retention
== END | disposition home or self-care (01) ==
LOC: RADCTMAIN 10:46
PROVIDERS: ATTEND Surgery Plastic and Reconstructive Surgery
DX: K57.92 Diverticulitis of intestine, part unspecified, without perforation or abscess without bleeding (principal); R10.12 Left upper quadrant pain
CPT/HCPCS: 74177; Q9967 ×2

== ENCOUNTER → 2019-05-12 | Outpatient (CLI) | payer BC ==
[2019-05-12 07:31] LABS: HCT 39.5 % (34.0-46.0); MCH 31.8 pg (25.0-35.0); MCHC 33.1 g/dL (31.0-37.0); MCV 96.2 fL (80.0-100.0); Mean Platelet Volume 7.4; Platelet Count 269 k/uL (150-450); RBC 4.11 m/uL (3.80-5.40); RDW 12.2 % (11.5-15.5); WBC 4.8 k/uL (3.8-10.6)
[2019-05-12 07:46] LABS: Partial Thromboplastin Time 25.4 sec (22.0-30.0); Prothrombin Time 10.7 sec (9.0-12.0)
[2019-05-12 07:47] LABS: ALT 64 U/L (4-34); AST 41 U/L (14-36); African American GFR (CKD) >90 (>60 ml/min/1.73 sqM); Albumin 4.4 g/dL (3.5-5.0); Alkaline Phosphatase 147 U/L (38-126); Anion Gap 8 mmol/L; Blood Urea Nitrogen 12 mg/dL (7-17); Calcium 9.3 mg/dL (8.4-10.2); Carbon Dioxide 30 mmol/L (22-30); Chloride 103 mmol/L (98-107); Glucose 88 mg/dL (74-99); Non-African American GFR(CKD) >90 (>60 ml/min/1.73 sqM); Potassium 4.2 mmol/L (3.5-5.1); Sodium 141 mmol/L (137-145); Total Bilirubin 0.7 mg/dL (0.2-1.3); Total Protein 7.6 g/dL (6.3-8.2)
[2019-05-12 08:03] LABS: Appearance,Urine Clear (Clear); Bilirubin,Urine Negative (Negative); Blood,Urine Trace (Negative); Color,Urine Yellow; Glucose,Urine (UA) Negative (Negative); Ketones,Urine Negative (Negative); Leukocyte Esterase,Urine Negative (Negative); Mucus,Urine Many /hpf; Nitrite,Urine Negative (Negative); Protein,Urine Negative (Negative); RBC,Urine <1 /hpf (0-5); Squamous Epithelial Cell,Urine 5 /hpf (0-4); Urobilinogen,Urine <2.0 mg/dL (<2.0); WBC,Urine 1 /hpf (0-5)
--- NOTE | 2019-05-12 11:26 | XR ---
EXAMINATION TYPE: XR chest 2V DATE OF EXAM: 05/12/2019 COMPARISON: 12/28/2017 TECHNIQUE: PA and lateral views submitted. HISTORY: Preop FINDINGS: The lungs are clear and there is no pneumothorax, pleural effusion, or focal pneumonia. No overt fa ilure. Heart size normal. IMPRESSION: 1. No acute process.
== END | disposition home or self-care (01) ==
LOC: LABPAT 06:52
PROVIDERS: ATTEND Orthopaedic Surgery Orthopaedic Surgery of the Spine
DX: Z01.812 Encounter for preprocedural laboratory examination (principal); M51.17 Intervertebral disc disorders with radiculopathy, lumbosacral region
CPT/HCPCS: 36415; 71046; 80053; 81001; 85027; 85610; 85730; 87070

== ENCOUNTER 2019-05-21 06:14 | Inpatient (IN) | payer BC ==
[2019-05-15 09:58] VITALS: BMI 23.8
[~2019-05-21 06:14] MED LIST changes: +BACITRACIN 50,000 UNIT, POLYMYXIN B 500,000 UNIT in SODIUM CHLORIDE 0.9% IRRIGATIO 1,00... IRRIGATION ONE; +DEXAMETHASONE SOD PHOSPHATE 10 MG/ML 1 ML VIAL IV ONE; -LACTATED RINGERS 1,000 ML IV SCH; +MORPHINE SULFATE 4 MG/ML SYRINGE IV PRN; +ONDANSETRON 4 MG/2 ML VIAL IVP ONE
[2019-05-21] MEDS: LACTATED RINGERS 1,000 ML IV SCH ×2 (06:49→23:41)
[2019-05-21] MEDS ORDERED: SCOPOLAMINE 1.5MG/72HR PATCH TRANSDERM ONE (06:50)
[2019-05-21] MEDS ORDERED: PROPOFOL 10 MG/ML 20 ML VIAL IV ONE (07:39)
[2019-05-21] MEDS ORDERED: KETAMINE 10 MG/ML 20 ML VIAL ONE (07:39)
[2019-05-21] MEDS ORDERED: NEOSTIGMINE 1 MG/ML 10 ML VIAL ONE (07:39)
[2019-05-21] MEDS ORDERED: fentaNYL (PF) 50 MCG/ML 2 ML AMP ONE (07:39)
[2019-05-21] MEDS ORDERED: PHENYLEPHRINE-0.9% NACL SYG 1 MG/10 ML SYRINGE ONE (07:39)
[2019-05-21] MEDS ORDERED: GLYCOPYRROLATE 0.2 MG/ML 2 ML VIAL ONE (07:39)
[2019-05-21] MEDS ORDERED: ROCURONIUM BROMIDE 10 MG/ML 10 ML VIAL IV ONE (07:39)
[2019-05-21] MEDS ORDERED: SUCCINYLCHOLINE CHLORIDE 100 MG/5 ML SYR IV ONE (07:39)
[2019-05-21] MEDS ORDERED: LIDOCAINE 1% INJ 10MG/ML (20 ML MDV) ONE (07:39)
[2019-05-21] MEDS ORDERED: MIDAZOLAM 2 MG/2 ML VIAL ONE (07:39)
[2019-05-21] MEDS ORDERED: THROMBIN (BOVINE) 5,000 UNIT VIAL TOPICAL ONE (08:29)
[2019-05-21] MEDS ORDERED: GELATIN SPONGE,ABSORB (LARGE) 1 EACH SPONGE TOPICAL ONE (08:29)
[2019-05-21] MEDS ORDERED: BUPIVACAIN-EPI 0.25%-1:200,000 30 ML VIAL SQ ONE (08:29)
[2019-05-21] MEDS ORDERED: LACTATED RINGERS 1,000 ML IV ONE (09:16)
--- NOTE | 2019-05-21 10:57 | FL ---
EXAMINATION TYPE: FL guidance operating room DATE OF EXAM: 05/21/2019 HISTORY: Flouroscopy time 24 seconds of fluoroscopy provided. IMPRESSION: 1. Fluoroscopy time.
[2019-05-21] MEDS ORDERED: MAGNESIUM HYDROXIDE 2,400 MG/10 ML CUP PO PRN (11:02)
[2019-05-21] MEDS ORDERED: BENZOCAINE/MENTHOL LOZENG 1 EACH LOZENGE MUCOUS MEM PRN (11:02)
[2019-05-21] MEDS ORDERED: ONDANSETRON 4 MG/2 ML VIAL IVP PRN (11:02)
[2019-05-21] MEDS ORDERED: HYDROcodone/APAP 5-325MG 1 EACH TAB PO PRN (11:02)
[2019-05-21] MEDS ORDERED: diphenhydrAMINE 50 MG CAP PO PRN (11:06)
[2019-05-21] MEDS: MEPERIDINE 50 MG/ML SYRINGE IVP ONE ×2 (11:11→11:22)
--- NOTE | 2019-05-21 11:17 | P.OP ---
Date of Procedure: 05/21/19 Preoperative Diagnosis: Recurrent disc herniation L5-S1, left lower extremity radiculopathy with weakness, degenerative disc disease, history of prior laminectomy decompression and discectomy L5-S1, low back pain Postoperative Diagnosis: Same Anesthesia: GETA Pathology: none sent Condition: stable Disposition: PACU Description of Procedure: DESCRIPTION OF PROCEDURE(S): BRIEF OPERATIVE NOTE Preoperative Diagnosis: Recurrent disc herniation L5-S1, left lower extremity radiculopathy with weakness, degenerative disc disease, history of prior lami nectomy decompression and discectomy L5-S1, low back pain, progressive degeneration at L5-S1 Postoperative Diagnosis: Same Procedure: Revision Laminectomy and decompression L5-S1 Minimally invasive Posterior lateral decompression and fusion L5-S1 Minimally invasive Transforaminal lumbar interbody fusion for a 360 fusion L5-S1 Revision Discectomy for decompression L5-S1 Placement of interbody graft L5-S1 Local autogenous bone grafting Use of computer navigation for surgical placement of hardware at L5 and S1 Harvesting of bone marrow aspirate to be of the pedicle and vertebral body of L5 Use of bone graft extenders Surgeon: Dr. Wise [employer] Mold Engraver: Willi Iverson is present throughout the entire the case persistence during positioning, dissection, exposure, visualization, and all crucial elements of the case as well as closure. Anesthesia: General anesthesia Estimated blood loss: Approximately 200 mL Complications: None apparent Components implanted: K2M minimally invasive Burton pedicle screw system with 4 screws measuring 6.5 mm in diameter and 40 and 45 mm in length with 2 rods measuring 40 mm in length and 1 [place] interbody cage with 10 mL of bio4 bone graft and 30 mL of DBX bone fibers to supplemental local autogenous bone graft a nd bone marrow aspirate Disposition: To recovery room in good stable condition. OPERATIVE INDICATIONS The patient has had long-standing issues in their lower back and lower extremities. She had an issue with a disc herniation at L5-S1 in the past with severe radiculopathy at her left lower extremity. She had undergone a laminectomy decompression after feeling the conservative treatment. She i nitially had very good results with her laminectomy decompression however several months later developed recurrence of her symptoms and was found have a large recurrent disc herniation L5-S1 with progressive degeneration and breakdown at the level of L5-S1. We can initiate a conservative treatment. The patient went through aggressive conservative care however was continued to have severe problems in her back and her left lower extremity with evidence weakness at her left lower extremity. The patient has been through conservative treatment. We discussed various treatment options including surgery, and the patient wishes to proceed with surgery. With the progressive breakdown at the L5-S1 in the recurrence of the disc herniation I felt that she would be at high risk for further recurrence and instability at L5-S1 and would be best served in her repeat surgery with revision decompression and discectomy as well as fusion at level for stabilization. We discussed the risk, patient's alternatives and benefits of surgery including but not limited to, risk of bleeding risk of infection, risk of need for further surgery, risk of decreased, loss of motion, muscle function, malunion nonunion, hardware failure, nerve damage, paralysis, heart attack, blindness and . OPERATIVE SUMMARY After discussing all the risks, patient alternatives and benefits at length, the patient elected to proceed with surgical intervention, signed informed consent, and presented for their procedure. The patient was seen and examined in the preoperative holding area and the surgical site was marked. The patient was given antibiotics and brought to the operating room. The patient was sedated and intubated by anesthesia in standard fashion. The patient was positioned on to the operating room table in a prone position on the appropriate frame which was well-padded and well molded. We were careful to pad any bony prominences and pressure points. We were careful to maintain the patient's cervical spine and good neutral alignment and position throughout. The patient was prepped and draped in a normal standard fashion. An appropriate timeout and keystone protocol performed. We were able to proceed with the surgery. The local wound area was infiltrated with local anesthetic. I was able utilize C-arm guidance as well as computer navigation Pan[employer]X system to establish appropriate position over the pedicles bilaterally at the appropriate levels at L5-S1. I placed the navigation device bony landmarks at the iliac crest on the right side with 2 small stab incisions and appropriate guidepins. With the appropriate levels confirmed was able to make small stab incisions over the appropriate pedicle sites bilaterally at L5 and S1 3 and half centimeters off midline. Utilizing C-arm in his house able to establish a Jamshidi needle over the lateral aspect of the pedicle and advanced the trocar into the pedicle being careful not to breech superiorly inferiorly medially or laterally. Position was confirmed regularly with computer navigation system and lateral images on C-arm. I was able to establish the trocar into the pedicle appropriately into the posterior aspect of the vertebral body bilaterally at the appropriate levels at L5-S1. This was done at each of the pedicle positions and each of the vertebrae at L5-S1 bilaterally. I was able place the guidewire into the trocar and into the vertebral body appropriately under C-arm guidance. Dissection was taken down over the wire to the appropriate starting position for the screw placed. The appropriate length screw was chosen, threaded over the guidewire and screwed appropriately into the pedicle and vertebral body under C- arm guidance in excellent alignment and position with good bony purchase. This is done at each of the screw sites at the appropriate levels at L5-S1. With the screws intact I extended the incision to connect the screw hole sites on the most symptomatic side on the left. I dissected down to establish access over the pars and lamina to the base of the spinous process. I was able to expose the facet joint. The capsule the facet was taken down and showed some facet arthrosis at the joint. There had been prior laminectomy at that site and further meticulous care was taken to remove scar tissue and take down at the space of the interlaminar space and transfemoral space to mobilize the nerve roots and expose the disc. I was able to use a combination of curettes and Kerrison rongeurs and a high-speed drill to take down the facet joint and do a facetectomy. Partial revision laminectomy was also performed. I was able get excellent foraminal decompression and central decompression with undermining across midline to perform a laminectomy centrally and contralaterally. As able get good central decompression. The ligamentum flavum was taken down to further decompress centrally and at bilateral neural foramen. I was able to expose the disc space and visualize the traversing nerve root. Note was made of a large disc herniation which was recurrent at the level causing further compression of the nerve root at L5-S1. I was able to establish a annulotomy at the appropriat e level protecting soft tissue and neural structures. Note was made of some disc desiccation and significant disc loss at the disc. I performed a complete discectomy with accommodation of curettes and rasps and scrapers. I was able to remove the extruded disc herniation as well to get further decompression. I was able get good endplate preparation at the disc space. I sized for the appropriate size interbody spacer protecting the soft tissue and neural structures. The wound was copiously irrigated and suctioned dry. There is no evidence of any dural tear or leak. I was able to pack the disc space with local autogenous bone graft as well as a small amount of bone graft which was also placed into the interbody cage itself at L5-S1. Protecting the soft tissue structures and neural structures I was able place the interbody cage in good alignment and good position with good fit and fill at the interbody space. His issues was confirmed with C-arm guidance. Good hemostasis maintained. There is no evidence of any dural tear or leak. The wound was irrigated and suctioned dry. With the hardware intact, intraoperative C-arm imaging was again taken which showed good alignment and position of the hardware at the appropriate levels of L5-S1. We were then able to measure, contour and place the rods and appropriate hardware bilaterally. I was able to place capcrews, tighten them down, and torque them with the torque screwdriver appropriately. With this intact I was able to place the local autogenous bone graft with additional bone graft enhancer as necessary into the posterior lateral gutters over the decorticated transverse processes. The remainder of the bone graft was placed over the facet joint on the contralateral side after taking down the facet joint capsule. With the bone graft intact, a stable construct, and good decompression at the appropriate levels, we were able to proceed with closure. Good hemostasis was maintained. There is no evidence of dural tear or leak. The fascia was closed for a watertight closure. he subcuticular tissue was closed with absorbable suture. The wound was cleaned and dried and dressed with the appropriate dressing. The drapes were broken down. The patient was gently rolled back onto their hospital bed being careful to maintain their cervical spine and good neutral alignment and position. They were woken up by anesthesia, extubated, and brought to the recovery room in good stable condition. The patient will be admitted to the hospital for appropriate postoperative care, medical management and monitoring. We will continue to follow them closely about the postoperative course.
[2019-05-21] MEDS: fentaNYL (PF) 50 MCG/ML 2 ML AMP IVP ONE ×4 (11:30→15:23)
[2019-05-21] MEDS: MIDAZOLAM 2 MG/2 ML VIAL IVP ONE ×2 (11:57→12:27)
[2019-05-21] MEDS ORDERED: SODIUM CHLORIDE 0.9% 1,000 ML IV ONE (12:05)
[2019-05-21] MEDS: HYDROcodone/APAP 5-325MG 1 EACH TAB PO PRN ×3 (12:44→21:02)
[2019-05-21] MEDS ORDERED: LEVONORGESTREL MISCELLANE SCH (16:00)
[2019-05-21] MEDS: SODIUM CHLORIDE 0.9% 1,000 ML IV SCH ×2 (16:48→21:03)
[2019-05-21] MEDS: GABAPENTIN 300 MG CAP PO SCH ×2 (17:04→19:59)
[2019-05-21] MEDS: VENLAFAXINE HCL 37.5 MG TAB PO SCH (19:59)
[2019-05-21] MEDS: CALCIUM CARBONATE 500 MG CHEWABLE PO SCH (19:59)
[2019-05-21] MEDS ORDERED: VITAMIN A ACETATE SL SCH (21:00)
--- NOTE | 2019-05-21 22:49 | P.CONS ---
History of Present Illness - Reason for Consult Consult date: 05/21/19 Medical management Requesting physician: Jaylen Wise - Chief Complaint Lumbar surgery - History of Present Illness Consultation: This is a pleasant 34-year-old patient of Dr. Jerome Roberson. Patient few years ago had surgery on L5-S1 region for herniated disc. Oral. Her pressure is having increasing amount of pain with radiculopathy down the left leg. Pain is becoming uncontrolled having failed conservative measurements. Patient undergo spinal fusion. Postsurgery patient is having pain at the operative site. Lying in bed. Diet was advanced. No nausea vomiting. Patient's had gastric bypass surgery and close to 100 pounds. She had IBS symptoms that have resolved. Also reflux symptoms are better. Patient does take treatment for anxiety. Also's radiculopathy down the left leg. Does not involve of bladder or bowels. Review of systems: GEN.: None EYES: None HEENT: None NECK: None RESPIRATORY: None CARDIOVASCULAR: None GASTROINTESTINAL: None GENITOURINARY: None MUSCULOSKELETAL: As above LYMPHATICS: None HEMATOLOGICAL: None PSYCHIATRY: None NEUROLOGICAL: Radiculopathy down left leg Social history: Does not smoke. Alcohol rarely. Family history: Reviewed, noncontributory to presentation Physical examination: VITAL SIGNS: 98.3, 95, 16, 97/62, 97% room air GENERAL: 24.5 BMI, laying in bed awake. EYES: Pupils equal. Conjunctiva normal. HEENT: External appearance of nose and ears normal, oral cavity grossly normal. NECK: JVD not raised; masses not palpable. HEART: First and second heart sounds are normal; no edema. LUNGS: Respiratory rate normal; clear to auscultation. ABDOMEN: Soft, nontender, liver spleen not palpable, no masses palpable. PSYCH: Alert and oriented x3; mood and affect normal. NEUROLOGICAL: Cranial nerves grossly intact; no facial asymmetry, power and sensation grossly intact. 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 -Anxiety not otherwise specified -GERD Plan: Patient's pain is controlled. We will deadbolts in place. Getting IV fluids. Diet to be advanced as tolerated. Care was discussed with the patient and question were answered. Thank you Dr. Wise Past Medical History Past Medical History: GERD/Reflux, Syncope Additional Past Medical History / Comment(s): Hx IBS, syncope x 13 October 2018, "low BP", History of Any Multi-Drug Resistant Organisms: None Reported Past Surgical History: Back Surgery, Bariatric Surgery, Cholecystectomy, Orthopedic Surgery Additional Past Surgical History / Comment(s): Right knee arthroscopy, Gastric Bypass 08-20-17, laminectomy/discectomy, EGD, COLONOSCOPY, lysis of adhesions. Past Anesthesia/Blood Transfusion Reactions: Motion Sickness Past Psychological History: Anxiety Smoking Status: Never smoker Past Alcohol Use History: Rare Past Drug Use History: None Reported - Past Family History Mother Family Medical History: No Reported History Medications and Allergies Home Medications Medication Instructions Recorded Confirmed Type Calcium Carbonate 500 mg PO BID 05/24/18 05/15/19 History Vitamin A Acetate [Vitamin A] 8,000 unit SL BID 05/24/18 05/15/19 History Multivitamins, Thera [Multivitamin 1 tab PO DAILY 05/27/18 05/15/19 History (formulary)] Iron 45mg/Vitamin C 60 Mg 1 tab PO DAILY 10/03/18 05/15/19 History Venlafaxine HCl [Effexor] 37.5 mg PO HS 10/03/18 05/15/19 History Gabapentin [Neurontin] 300 mg PO TID 10/16/18 05/15/19 History Magnesium 400 mg PO DAILY 12/24/18 05/15/19 History Hydrocodone/Acetaminophen [[place] 1 tab PO Q8HR PRN 04/17/19 05/15/19 History 5-325] Omeprazole 40 mg PO DAILY 04/17/19 05/15/19 History Venlafaxine HCl [Effexor] 75 mg PO AC-BRKFST 04/17/19 05/15/19 History diphenhydrAMINE [Benadryl] 50 mg PO HS PRN 04/17/19 05/15/19 History Cholecalciferol (Vitamin D3) 5,000 unit PO DAILY 05/15/19 05/15/19 History [Vitamin D3] Gasx(Dose Unknown) 1 tab PO BID 05/15/19 05/15/19 History L.acidoph,Paracasei, B.lactis 1 each PO DAILY 05/15/19 05/15/19 History [Probiotic] Levonorgestrel [Mirena] 1 each IY ONCE 05/15/19 05/15/19 History Zinc 50 mg PO DAILY 05/15/19 05/15/19 History Allergies Allergy/AdvReac Type Severity Reaction Status Date / Time Penicillins Allergy Itching Verified 05/15/19 09:45 hydromorphone [From Dilaudid] AdvReac Unknown Verified 05/15/19 09:45 dermabond Allergy Itching Uncoded 05/15/19 09:45 Physical Exam Vitals: Vital Signs Temp Pulse Pulse Resp BP Pulse Ox 05/21/19 19:33 98.3 F 95 16 97/62 97 05/21/19 17:00 98.4 F 107 H 16 99/63 95 05/21/19 16:01 110 H 18 87/49 99 05/21/19 15:00 97 18 91/50 99 05/21/19 14:01 97 18 82/49 99 05/21/19 13:38 18 94/58 05/21/19 13:31 96 18 77/44 99 05/21/19 13:01 113 H 18 91/55 98 05/21/19 12:31 112 H 18 80/49 98 05/21/19 12:01 112 H 18 90/50 98 05/21/19 11:46 113 H 18 95/52 97 05/21/19 11:32 91 18 99/48 99 05/21/19 11:16 114 H 18 94/41 100 05/21/19 11:02 97.7 F 114 H 16 115/59 97 05/21/19 06:46 97 F L 93 20 125/73 100 Intake and Output 05/21/19 05/21/19 05/21/19 06:59 14:59 22:59 Intake Total 200 2451 125 Output Total 335 600 Balance 200 2116 -475 Intake: IV 200 2451 Oral 125 Output: Urine 135 600 Estimated Blood Loss 200 Other: Voiding Method Indwelling Catheter Weight 66.8 kg 66.8 kg
[2019-05-22] MEDS: HYDROcodone/APAP 5-325MG 1 EACH TAB PO PRN ×5 (02:45→21:50)
[2019-05-22 07:53] LABS: Basophils % (A) 0 %; Eosinophils # (A) 0.1 k/uL (0-0.7); Eosinophils % (A) 1 %; HCT 31.2 % (34.0-46.0); HGB 10.3 gm/dL (11.4-16.0); Lymphocytes # (A) 1.9 k/uL (1.0-4.8); Lymphocytes % (A) 30 %; MCH 32.5 pg (25.0-35.0); MCHC 33.1 g/dL (31.0-37.0); MCV 98.2 fL (80.0-100.0); Mean Platelet Volume 7.3; Monocytes # (A) 0.4 k/uL (0-1.0); Monocytes % (A) 6 %; Neutrophils # (A) 3.9 k/uL (1.3-7.7); Neutrophils % (A) 62 %; Platelet Count 205 k/uL (150-450); RBC 3.18 m/uL (3.80-5.40); RDW 12.2 % (11.5-15.5); WBC 6.4 k/uL (3.8-10.6)
[2019-05-22] MEDS: CHOLECALCIFEROL 1,000 UNIT TAB PO SCH (07:58)
[2019-05-22] MEDS: PANTOPRAZOLE 40 MG TABLET PO SCH (07:58)
[2019-05-22] MEDS: MAGNESIUM OXIDE 400 MG TAB PO SCH (07:58)
[2019-05-22] MEDS: MULTIVITAMINS, THERA 1 EACH TAB PO SCH (07:59)
[2019-05-22] MEDS: GABAPENTIN 300 MG CAP PO SCH ×3 (07:59→19:40)
[2019-05-22] MEDS: VENLAFAXINE HCL 75 MG TAB PO SCH (07:59)
[2019-05-22] MEDS: SENNOSIDES-DOCUSATE SODIUM 1 EACH TAB PO SCH (07:59)
[2019-05-22] MEDS: CALCIUM CARBONATE 500 MG CHEWABLE PO SCH ×2 (07:59→19:39)
[2019-05-22 08:08] LABS: African American GFR (CKD) >90 (>60 ml/min/1.73 sqM); Anion Gap 6 mmol/L; Blood Urea Nitrogen 7 mg/dL (7-17); Calcium 8.3 mg/dL (8.4-10.2); Carbon Dioxide 28 mmol/L (22-30); Chloride 105 mmol/L (98-107); Glucose 88 mg/dL (74-99); Non-African American GFR(CKD) >90 (>60 ml/min/1.73 sqM); Potassium 3.9 mmol/L (3.5-5.1); Sodium 139 mmol/L (137-145)
[2019-05-22] MEDS ORDERED: IRON PO SCH (09:00)
[2019-05-22] MEDS ORDERED: NON FORMULARY DRUG (Zinc [Zinc] 50 MG) PO SCH (09:00)
[2019-05-22] MEDS ORDERED: VITAMIN C PO SCH (09:00)
[2019-05-22] MEDS: HYDROmorphone 1 MG/ML 1 ML SYRINGE IVP PRN ×3 (10:52→19:40)
--- NOTE | 2019-05-22 11:01 | P.PN ---
Progress Note - Text Progress Note Date: 05/22/19 Postoperative day #1 Patient is seen and examined today at bedside. The patient has some pain around the surgical site as expected. Pain is being controlled with medication. She says her left leg is still giving her significant symptoms thus far. She does have sustained strength in her leg. She still has her Dasilva intact. Physical Exam Afebrile with stable vital signs Abdomen is soft nontender. Chest has good excursion deep and space expiration The incision site is clean dry and intact. No erythema there is no purulence. The dressing is intact. Extremities have not had neurologic change from prior to surgery. She has sustained dorsal to plantar flexion and EHL. Calves and thighs were soft nontender without evidence of DVT. Assessment/Plan Postoperative day #1 status post revision laminectomy and discectomy decompression with fusion at L5-S1 for her recurrent disc herniation lower extremity radiculopathy and back pain Patient is progressing as expected from the surgery. She is still experiencing pain at her left lower extremity which hopefully will continue to improve after her decompression. The decompression went quite well with a discectomy and it seemed to physically alleviate see him pressure on the nerve. Hopefully the nerve will respond positively as the days go on. We will continue to increase the patient's mobilization with therapy. She needs get her Dasilva out today. We will continue pain control with oral or IV medications. We'll continue to f katielow patient closely.
--- NOTE | 2019-05-22 15:03 | P.PN ---
Progress Note - Text Progress Note Date: 05/22/19 - Chief Complaint Lumbar surgery Interval history: This is a pleasant 34-year-old patient of Dr. Jerome Roberson. Patient few years ago had surgery on L5-S1 region for herniated disc. Oral. Her pressure is having increasing amount of pain with radiculopathy down the left leg. Pain is becoming uncontrolled having failed conservative measurements. Patient undergo spinal fusion. Patient's had gastric bypass surgery and lost close to 100 po unds. She had IBS symptoms that have resolved. Also reflux symptoms are better. Patient does take treatment for anxiety. Also's radiculopathy down the left leg. Does not involve of bladder or bowels. Today-laying in bed. Pain is present. Getting IV Dilaudid. Did tolerate her diet. No nausea vomiting. Has A cooling pump locally. Review of systems: Was done for constitutional, cardiovascular, GI, pulmonary. relevant finding as above Active Medications Hydrocodone Bitart/Acetaminophen ([place] 5-325) 1 each PO Q4HR PRN PRN Reason: Moderate Pain Hydrocodone Bitart/Acetaminophen ([place] 5-325) 2 each PO Q4HR PRN PRN Reason: Moderate Pain Last Admin: 05/22/19 11:55 Dose: 2 each Documented by: Benzocaine/Menthol (Cepacol Lozenge) 1 each MUCOUS MEM Q4HR PRN PRN Reason: Sore Throat Calcium Carbonate/Glycine (Tums) 500 mg PO BID [facility] Last Admin: 05/22/19 07:59 Dose: 500 mg Documented by: Cholecalciferol (Vitamin D3 (25 Mcg = 1000 Iu)) 5,000 unit PO DAILY [facility] Last Admin: 05/22/19 07:58 Dose: 5,000 unit Documented by: Diphenhydramine HCl (Benadryl) 50 mg PO HS PRN PRN Reason: SLEEP Gabapentin (Neurontin) 300 mg PO TID [facility] Last Admin: 05/22/19 07:59 Dose: 300 mg Documented by: Hydromorphone HCl (Dilaudid) 0.5 mg IVP Q4HR PRN PRN Reason: Pain Hydromorphone HCl (Dilaudid) 1 mg IVP Q4HR PRN PRN Reason: Pain Last Admin: 05/22/19 14:46 Dose: 1 mg Documented by: Lactated Ringer's (Lactated Ringers) 1,000 mls @ 20 mls/hr IV .Q24H [facility] Last Admin: 05/21/19 23:41 Dose: Not Given Documented by: Sodium Chloride (Saline 0.9%) 1,000 mls @ 75 mls/hr IV .[id number] [facility] Last Admin: 05/21/19 21:03 Dose: 75 mls/hr Documented by: Lidocaine HCl (.Xylocaine 1% Inj (10mg/Ml) For Iv Start) 0.1 ml INTRADERMA PER PROTOCOL PRN PRN Reason: IV Start Last Admin: 05/21/19 06:50 Dose: 0.1 ml Documented by: Magnesium Hydroxide (Milk Of Magnesia) 2,400 mg PO DAILY PRN PRN Reason: Constipation Magnesium Oxide (Mag-Ox) 400 mg PO DAILY [facility] Last Admin: 05/22/19 07:58 Dose: 400 mg Documented by: Multivitamins (Theragran) 1 each PO DAILY [facility] Last Admin: 05/22/19 07:59 Dose: 1 each Documented by: Non-Formulary Medication (Levonorgestrel [Mirena]) 1 each MISCELLANE Q365D [facility] Last Admin: 05/21/19 17:04 Dose: Not Given Documented by: Ondansetron HCl (Zofran) 4 mg IVP Q8HR PRN PRN Reason: Nausea Pantoprazole Sodium (Protonix) 40 mg PO -[facility] Last Admin: 05/22/19 07:58 Dose: 40 mg Documented by: Senna/Docusate Sodium (Senokot-S) 1 each PO DAILY [facility] Last Admin: 05/22/19 07:59 Dose: 1 each Documented by: Venlafaxine HCl (Effexor) 37.5 mg PO HS [facility] Last Admin: 05/21/19 19:59 Dose: 37.5 mg Documented by: Venlafaxine HCl (Effexor) 75 mg PO AC-BRKFST [facility] Last Admin: 05/22/19 07:59 Dose: 75 mg Documented by: Physical examination: VITAL SIGNS: 98.6, 86, 15, 104/65, 99% room air GENERAL: Laying in bed, appears comfortable EYES: Pupils equal. Conjunctiva normal. HEENT: External appearance of nose and ears normal, oral cavity grossly normal. NECK: JVD not raised; masses not palpable. HEART: First and second heart sounds are normal; no edema. LUNGS: Respiratory rate normal; clear to auscultation. ABDOMEN: Soft, nontender, liver spleen not palpable, no masses palpable. PSYCH: Alert and oriented x3; mood and affect normal. NEUROLOGICAL: Cranial nerves grossly intact; no facial asymmetry, power and sensation grossly intact. INVESTIGATIONS, reviewed in the clinical context: White count 6.4 hemoglobin 10.3 Labs from 05/12/2019 White count 4.8 hemoglobin 13 potassium 4.2 AST 41 ALT 64 Assessment: -Lumbar fusion at L5-S1 levels latex dipper surgery for degenerative disc -Left-sided lumbar radiculopathy down the left leg -Status post gastric bypass surgery history of with over 100 pounds in weight loss. -Anxiety not otherwise specified -GERD -Acute postprocedure blood loss anemia, expected. From surgery Plan: Encouraged patient to be out of bed. Pain appears better. Oral intake is improving. Discussed with the patient. Thank you Dr. Wise
[2019-05-22] MEDS: SODIUM CHLORIDE 0.9% 1,000 ML IV SCH (15:04)
[2019-05-22] MEDS: VENLAFAXINE HCL 37.5 MG TAB PO SCH (19:39)
[2019-05-23] MEDS: HYDROmorphone 1 MG/ML 1 ML SYRINGE IVP PRN (01:43)
[2019-05-23] MEDS: HYDROcodone/APAP 5-325MG 1 EACH TAB PO PRN (05:19)
[2019-05-23] MEDS: SODIUM CHLORIDE 0.9% 1,000 ML IV SCH ×2 (05:20→12:14)
[2019-05-23] MEDS: LACTATED RINGERS 1,000 ML IV SCH (05:21)
[2019-05-23] MEDS: CALCIUM CARBONATE 500 MG CHEWABLE PO SCH ×2 (07:16→20:01)
[2019-05-23] MEDS: HYDROmorphone 0.5 MG/0.5 ML SYRINGE IVP PRN ×4 (07:16→20:48)
[2019-05-23] MEDS: GABAPENTIN 300 MG CAP PO SCH ×3 (07:16→20:01)
[2019-05-23] MEDS: SENNOSIDES-DOCUSATE SODIUM 1 EACH TAB PO SCH (07:16)
[2019-05-23] MEDS: MULTIVITAMINS, THERA 1 EACH TAB PO SCH (07:16)
[2019-05-23] MEDS: PANTOPRAZOLE 40 MG TABLET PO SCH (07:16)
[2019-05-23] MEDS: VENLAFAXINE HCL 75 MG TAB PO SCH (07:16)
[2019-05-23] MEDS: CHOLECALCIFEROL 1,000 UNIT TAB PO SCH (07:16)
[2019-05-23] MEDS: MAGNESIUM OXIDE 400 MG TAB PO SCH (07:16)
--- NOTE | 2019-05-23 08:42 | P.PN ---
Progress Note - Text Progress Note Date: 05/23/19 Orthopedic Spine: History of present illness: Patient is a pleasant 34-year-old female who is seen and examined at the bedside following posterior lateral decompression and fusion performed Sunday. Patient states she is doing quite well postsurgically and has had good improvement in terms of pain control as compared to yesterday. Currently does not complain of nausea, vomiting, fever, or chills. Patient states her pain has been adequately controlled with oral and IV medications. She does continue to have pain down the left lower extremity. Her back pain is better control. Her Dasilva catheter has been discontinued. She has been able to ambulate the hallways. Patient is eating and voiding freely without difficulty. Physical Exam Lumbar Fusion: Status post surgical day number 2 Patient is awake, alert, and oriented 3 Vital signs stable Good chest excursion with deep inspiration and expiration Abdomen soft nontender Dorsiflexion, plantarflexion, and extensor hallucis longus positive sustained bilaterally No signs or symptoms of DVT; no calf pain; pneumatic cuffs not currently intact bilateral lower extremities Dressing is clean, dry, and intact; no erythema, purulence, or signs of infection Neurovascularly intact bilaterally lower extremities Assessment: L5-S1 minimally invasive posterior lateral decompression and fusion with transforaminal lumbar interbody fusion and revision laminectomy Low back pain Left lower extremity radiculopathy with weakness History of previous L5-S1 laminectomy and decompression with discectomy Lumbosacral degenerative disc disease History of gastric bypass surgery Plan: 1. Ambulate as tolerated; work with Physical Therapy to increase mobilization 2. Continue pain control with IV and oral medications; we'll plan to increase [place] 5 mg/325 mg up to 7.5 mg/325 mg and will continue to wean patient off of IV Dilaudid in anticipation for discharge home tomorrow, 05/24/2019 3. Dressing to remain intact with silver and Tegaderm; patient may shower with dressing intact 4. Medical management can continue to manage patient for patient's other medical diagnoses 5. We will continue to follow the patient closely; if the patient is able to continue to have improvement, we'll plan for discharge home tomorrow 6. Patient can follow-up with Willi Leigh PA-C or Dr. Jone Wise at [facility] in 2-3 weeks following discharge
[2019-05-23] MEDS: HYDROcodone/APAP 7.5-325MG 1 EACH TAB PO PRN ×4 (09:30→23:26)
[2019-05-23] MEDS: diphenhydrAMINE 25 MG CAP PO PRN (18:13)
[2019-05-23] MEDS: VENLAFAXINE HCL 37.5 MG TAB PO SCH (20:01)
--- NOTE | 2019-05-23 23:02 | P.PN ---
Progress Note - Text Progress Note Date: 05/23/19 - Chief Complaint Lumbar surgery Interval history: This is a pleasant 34-year-old patient of Dr. Jerome Roberson. Patient few years ago had surgery on L5-S1 region for herniated disc. Oral. Her pressure is having increasing amount of pain with radiculopathy down the left leg. Pain is becoming uncontrolled having failed conservative measurements. Patient undergo spinal fusion. Patient's had gastric bypass surgery and lost close to 100 po unds. She had IBS symptoms that have resolved. Also reflux symptoms are better. Patient does take treatment for anxiety. Also's radiculopathy down the left leg. Does not involve of bladder or bowels. Today-oral intake better. Up and tolerated. Slight nausea. Patient improving. No new issues. at the bedside. Review of systems: Was done for constitutional, cardiovascular, GI, pulmonary. relevant finding as above Active Medications Hydrocodone Bitart/Acetaminophen ([place] 7.5-325) 1 - 2 each PO Q4H PRN PRN Reason: Pain Last Admin: 05/23/19 18:14 Dose: 2 each Documented by: Benzocaine/Menthol (Cepacol Lozenge) 1 each MUCOUS MEM Q4HR PRN PRN Reason: Sore Throat Calcium Carbonate/Glycine (Tums) 500 mg PO BID [facility] Last Admin: 05/23/19 20:01 Dose: 500 mg Documented by: Cholecalciferol (Vitamin D3 (25 Mcg = 1000 Iu)) 5,000 unit PO DAILY [facility] Last Admin: 05/23/19 07:16 Dose: 5,000 unit Documented by: Diphenhydramine HCl (Benadryl) 50 mg PO HS PRN PRN Reason: SLEEP Last Admin: 05/23/19 20:48 Dose: 50 mg Documented by: Diphenhydramine HCl (Benadryl) 25 mg PO BID PRN PRN Reason: Itching Last Admin: 05/23/19 18:13 Dose: 25 mg Documented by: Gabapentin (Neurontin) 300 mg PO TID [facility] Last Admin: 05/23/19 20:01 Dose: 300 mg Documented by: Hydromorphone HCl (Dilaudid) 0.5 mg IVP Q4HR PRN PRN Reason: Pain Last Admin: 05/23/19 20:48 Dose: 0.5 mg Documented by: Hydromorphone HCl (Dilaudid) 1 mg IVP Q4HR PRN PRN Reason: Pain Last Admin: 05/23/19 01:43 Dose: 1 mg Documented by: Lactated Ringer's (Lactated Ringers) 1,000 mls @ 20 mls/hr IV .Q24H [facility] Last Admin: 05/23/19 05:21 Dose: Not Given Documented by: Sodium Chloride (Saline 0.9%) 1,000 mls @ 75 mls/hr IV .[id number] [facility] Last Admin: 05/23/19 12:14 Dose: Not Given Documented by: Lidocaine HCl (.Xylocaine 1% Inj (10mg/Ml) For Iv Start) 0.1 ml INTRADERMA PER PROTOCOL PRN PRN Reason: IV Start Last Admin: 05/21/19 06:50 Dose: 0.1 ml Documented by: Magnesium Hydroxide (Milk Of Magnesia) 2,400 mg PO DAILY PRN PRN Reason: Constipation Magnesium Oxide (Mag-Ox) 400 mg PO DAILY [facility] Last Admin: 05/23/19 07:16 Dose: 400 mg Documented by: Multivitamins (Theragran) 1 each PO DAILY [facility] Last Admin: 05/23/19 07:16 Dose: 1 each Documented by: Non-Formulary Medication (Levonorgestrel [Mirena]) 1 each MISCELLANE Q365D [facility] Last Admin: 05/21/19 17:04 Dose: Not Given Documented by: Ondansetron HCl (Zofran) 4 mg IVP Q8HR PRN PRN Reason: Nausea Last Admin: 05/23/19 07:53 Dose: 4 mg Documented by: Pantoprazole Sodium (Protonix) 40 mg PO -[facility] Last Admin: 05/23/19 07:16 Dose: 40 mg Documented by: Senna/Docusate Sodium (Senokot-S) 1 each PO DAILY [facility] Last Admin: 05/23/19 07:16 Dose: 1 each Documented by: Venlafaxine HCl (Effexor) 37.5 mg PO [facility] Last Admin: 05/23/19 20:01 Dose: 37.5 mg Documented by: Venlafaxine HCl (Effexor) 75 mg PO -BRKT [facility] Last Admin: 01/10/20 07:16 Dose: 75 mg Documented by: Physical examination: VITAL SIGNS: 98.7, 89, 14, 94/56, 98% room air GENERAL: Laying in bed, appears comfortable EYES: Pupils equal. Conjunctiva normal. HEENT: External appearance of nose and ears normal, oral cavity grossly normal. NECK: JVD not raised; masses not palpable. HEART: First and second heart sounds are normal; no edema. LUNGS: Respiratory rate normal; clear to auscultation. ABDOMEN: Soft, nontender, liver spleen not palpable, no masses palpable. PSYCH: Alert and oriented x3; mood and affect normal. NEUROLOGICAL: Cranial nerves grossly intact; no facial asymmetry, power and sensation grossly intact. 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 -Anxiety not otherwise specified -GERD -Acute postprocedure blood loss anemia, expected. From surgery Plan: Overall doing better. Getting better. Pain better controlled. Oral intake improving. Thank you Dr. Wise
[2019-05-23 23:39] VITALS: PULSE 87
[2019-05-24 02:47] VITALS: TEMP 97.9
[2019-05-24] MEDS: HYDROcodone/APAP 7.5-325MG 1 EACH TAB PO PRN ×3 (03:39→12:26)
[2019-05-24] MEDS: LACTATED RINGERS 1,000 ML IV SCH (04:27)
[2019-05-24] MEDS: diphenhydrAMINE 25 MG CAP PO PRN (06:22)
[2019-05-24] MEDS: HYDROmorphone 0.5 MG/0.5 ML SYRINGE IVP PRN (06:22)
[2019-05-24] MEDS: SODIUM CHLORIDE 0.9% 1,000 ML IV SCH (07:02)
[2019-05-24 07:42] VITALS: BP 112/74; RESP 14
[2019-05-24] MEDS: PANTOPRAZOLE 40 MG TABLET PO SCH (08:16)
[2019-05-24] MEDS: VENLAFAXINE HCL 75 MG TAB PO SCH (08:16)
[2019-05-24] MEDS: MAGNESIUM OXIDE 400 MG TAB PO SCH (08:19)
[2019-05-24] MEDS: MULTIVITAMINS, THERA 1 EACH TAB PO SCH (08:19)
[2019-05-24] MEDS: SENNOSIDES-DOCUSATE SODIUM 1 EACH TAB PO SCH (08:19)
[2019-05-24] MEDS: CALCIUM CARBONATE 500 MG CHEWABLE PO SCH (08:19)
[2019-05-24] MEDS: CHOLECALCIFEROL 1,000 UNIT TAB PO SCH (08:19)
[2019-05-24] MEDS: GABAPENTIN 300 MG CAP PO SCH (08:19)
--- NOTE | 2019-05-24 11:21 | P.DS ---
Providers Date of admission: 05/21/19 06:14 Attending physician: Jaylen Wise Consults: 05/21/19 11:02 Consult Physician Routine Consulting Provider: Korey Chapman Consult Reason/Comments: Medical management Do you want consulting provider notified?: Yes Primary care physician: Stated None Hospital Course: The patient presented on the day of admission as per their operative note. The patient had recurrent disc herniation and progressive degeneration at L5-S1 with severe low back pain and left lower extremity radiculopathy. After failing conservative treatment she decided to proceed with revision decompression and discectomy with fusion at L5-S1 as per her operative note. She says that she has been making some progress in terms of her pain since her surgery. She still has pain at her left leg but is more ambulatory. She is passing gas well and tolerating a regular diet. Her pain is better controlled with oral medications at this point. Physical Exam The incision site is clean dry and intact. There is no erythema no drainage. There is no purulence no evidence of infection. There is no drainage or significant swelling. There is no evidence of any infection. Abdomen soft and nontender. Chest has good excursion with deep inspiration and expiration. The patient has active and passive range of motion intact at the upper and lower extremities. There is no acute change in neurologic status. She has sustained dorsiflexion plantar flexion and EHL intact. She is able stand on her toes and heels. Hospital Course Postoperative day #3 status post revision laminectomy decompression with discectomy at L5-S1 with fusion minimally invasively at L5-S1 for her recurrent disc herniation and stenosis with progressive degeneration L5-S1 and lower extremity radiculopathy and weakness. The patient has been making good progress postoperatively in terms of her mobility. They have completed the prophylactic antibiotics without any signs or symptoms of infection. The patient has been able to advance their diet, and is tolerating diet adequately. The pain was initially controlled with IV medications and is now controlled appropriately with oral medications. The patient has been able to increase their mobilization. She is ambulatory to the hallways without any assistance The patient has progressed appropriately. She is not yet had a bowel movement at her abdomen soft and she is passing gas well and tolerating a regular diet. She has been able to control her pain well with oral medications. She has not had any IV medications since yesterday evening. I think they are in good stable condition for discharge today. They will be sent home with appropriate prescriptions. I answered their questions to the best of my ability in a language that they can understand and they are agreeable with the plan. They will follow up as directed in approximately 2 weeks or sooner should having problems.. Patient Condition at Discharge: Fair Plan - Discharge Summary Discharge Rx Participant: Yes New Discharge Prescriptions: New HYDROcodone/APAP 7.5-325MG [[place] 7.5-325] 1 tab PO Q4H PRN 7 Days #42 tab PRN Reason: Pain No Action Calcium Carbonate 500 mg PO BID Vitamin A Acetate [Vitamin A] 8,000 unit SL BID Multivitamins, Thera [Multivitamin (formulary)] 1 tab PO DAILY Venlafaxine HCl [Effexor] 37.5 mg PO HS Iron 45mg/Vitamin C 60 Mg 1 tab PO DAILY Gabapentin [Neurontin] 300 mg PO TID Magnesium 400 mg PO DAILY Hydrocodone/Acetaminophen [[place] 5-325] 1 tab PO Q8HR PRN PRN Reason: Pain diphenhydrAMINE [Benadryl] 50 mg PO HS PRN PRN Reason: SLEEP Venlafaxine HCl [Effexor] 75 mg PO AC-BRKFST Omeprazole 40 mg PO DAILY Zinc 50 mg PO DAILY L.acidoph,Paracasei, B.lactis [Probiotic] 1 each PO DAILY Gasx(Dose Unknown) 1 tab PO BID Cholecalciferol (Vitamin D3) [Vitamin D3] 5,000 unit PO DAILY Levonorgestrel [Mirena] 1 each IY ONCE Discharge Medication List Calcium Carbonate 500 mg PO BID 05/24/18 [History] Vitamin A Acetate [Vitamin A] 8,000 unit SL BID 05/24/18 [History] Multivitamins, Thera [Multivitamin (formulary)] 1 tab PO DAILY 05/27/18 [History] Iron 45mg/Vitamin C 60 Mg 1 tab PO DAILY 10/03/18 [History] Venlafaxine HCl [Effexor] 37.5 mg PO HS 10/03/18 [History] Gabapentin [Neurontin] 300 mg PO TID 10/16/18 [History] Magnesium 400 mg PO DAILY 12/24/18 [History] Hydrocodone/Acetaminophen [[place] 5-325] 1 tab PO Q8HR PRN 04/17/19 [History] Omeprazole 40 mg PO DAILY 04/17/19 [History] Venlafaxine HCl [Effexor] 75 mg PO AC-BRKFST 04/17/19 [History] diphenhydrAMINE [Benadryl] 50 mg PO HS PRN 04/17/19 [History] Cholecalciferol (Vitamin D3) [Vitamin D3] 5,000 unit PO DAILY 05/15/19 [History] Gasx(Dose Unknown) 1 tab PO BID 05/15/19 [History] L.acidoph,Paracasei, B.lactis [Probiotic] 1 each PO DAILY 05/15/19 [History] Levonorgestrel [Mirena] 1 each IY ONCE 05/15/19 [History] Zinc 50 mg PO DAILY 05/15/19 [History] HYDROcodone/APAP 7.5-325MG [[place] 7.5-325] 1 tab PO Q4H PRN 7 Days #42 tab 05/24/19 [Rx] Follow up Appointment(s)/Referral(s): Jaylen Wise DO [Doctor of Osteopathic Medicine] - 06/06/19 3:30 pm (With Esvin Leigh) Activity/Diet/Wound Care/Special Instructions: 1. Patient may shower with silver and Tegaderm dressing intact. 2. Patient may remove silver and Tegaderm dressing on May 25 and shower without a dressing at that time. 3. Patient should refrain from driving until at least after their first follow- up appointment in the office. 4. Patient should avoid excessive bending, twisting, and lifting; no lifting greater than 10 pounds 5. Take medications as prescribed 6. Do not soak in tub Discharge Disposition: HOME SELF-CARE
== END 2019-05-24 13:19 | disposition home or self-care (01) | DRG 454 ==
LOC: 2ORMAIN 06:14 → 4SSUR 15:58
PROVIDERS: ADMIT Orthopaedic Surgery Orthopaedic Surgery of the Spine; ATTEND Orthopaedic Surgery Orthopaedic Surgery of the Spine
PROC: 0SG3071 Fusion of Lumbosacral Joint with Autologous Tissue Substitute, Posterior Approach, Posterior Column, Open Approach (ICD-10-PCS; 2019-05-21)
PROC: 00NY0ZZ Release Lumbar Spinal Cord, Open Approach (ICD-10-PCS; 2019-05-21)
PROC: 01NB0ZZ Release Lumbar Nerve, Open Approach (ICD-10-PCS; 2019-05-21)
PROC: 01NR0ZZ Release Sacral Nerve, Open Approach (ICD-10-PCS; 2019-05-21)
PROC: 0ST40ZZ Resection of Lumbosacral Disc, Open Approach (ICD-10-PCS; 2019-05-21)
PROC: 0SG30AJ Fusion of Lumbosacral Joint with Interbody Fusion Device, Posterior Approach, Anterior Column, Open Approach (ICD-10-PCS; principal; 2019-05-21 07:30)
DX: M51.17 Intervertebral disc disorders with radiculopathy, lumbosacral region (principal); D62 Acute posthemorrhagic anemia; M48.07 Spinal stenosis, lumbosacral region; M43.17 Spondylolisthesis, lumbosacral region; F41.9 Anxiety disorder, unspecified; K21.9 Gastro-esophageal reflux disease without esophagitis; E66.01 Morbid (severe) obesity due to excess calories; K58.9 Irritable bowel syndrome, unspecified; M79.7 Fibromyalgia; L71.9 Rosacea, unspecified; E78.5 Hyperlipidemia, unspecified; F32.9 Major depressive disorder, single episode, unspecified; K59.03 Drug induced constipation; T40.2X5A Adverse effect of other opioids, initial encounter; Z79.899 Other long term (current) drug therapy; Z98.84 Bariatric surgery status; Z68.30 Body mass index [BMI] 30.0-30.9, adult; Z90.49 Acquired absence of other specified parts of digestive tract; Z88.5 Allergy status to narcotic agent; Z81.8 Family history of other mental and behavioral disorders; Z82.49 Family history of ischemic heart disease and other diseases of the circulatory system
CPT/HCPCS: 72100; 80048; 81025; 85025; 86850; 86900; 86901

== ENCOUNTER → 2022-02-02 | Outpatient (CLI) | payer BC ==
[2022-02-02 10:49] LABS: Prothrombin Time 10.5 sec (9.0-12.0)
[2022-02-02 10:50] LABS: HCT 42.5 % (37.2-46.3); HGB 14.4 g/dL (12.0-15.0); MCH 30.2 pg (27.0-32.0); MCHC 33.9 g/dL (32.0-37.0); MCV 89.1 fL (80.0-97.0); Mean Platelet Volume 9.6 fL (9.5-12.2); NRBC Per 100 WBC 0 /100 WBCS (0.0-0.0); Platelet Count 369 X 10*3/uL (140-440); RBC 4.77 X 10*6/uL (4.10-5.20); RDW 12.2 % (11.5-14.5); WBC 8.04 X 10*3/uL (4.50-10.00)
[2022-02-02 11:38] LABS: ALT 25 U/L (8-44); AST 28 U/L (13-35); African American GFR (CKD) 126.5 (60.0-200.0); Albumin 4.4 g/dL (3.8-4.9); Albumin/Globulin Ratio 1.42 (1.60-3.17); Alkaline Phosphatase 165 U/L (41-126); BUN/Creat Ratio 11.86 Ratio (12.00-20.00); Blood Urea Nitrogen 8.3 mg/dL (9.0-27.0); Calcium 9.2 mg/dL (8.7-10.3); Carbon Dioxide 23.5 mmol/L (20.0-27.5); Chloride 103 mmol/L (96-109); Globulin 3.1 g/dL (1.6-3.3); Glucose 101 mg/dL (70-110); Iron 128 ug/dL (50-170); Magnesium 1.8 mg/dL (1.5-2.4); Non-African American GFR(CKD) 109.1 (60.0-200.0); Phosphorus 2.7 mg/dL (2.4-5.1); Potassium 3.5 mmol/L (3.5-5.5); Sodium 140 mmol/L (135-145); Total Iron Binding Capacity 371 ug/dL (228-460); Total Protein 7.5 g/dL (6.2-8.2)
[2022-02-02 12:09] LABS: Chol/HDL Ratio 3.14 Ratio; LDL Cholesterol,Calculated 118.7 mg/dL (0.0-131.0); Prealbumin 24.8 mg/dL (18.0-42.0); VLDL Calculation 15.64 mg/dL (5.00-40.00)
[2022-02-03 11:23] LABS: Zinc, Serum 98 ug/dL (60-130)
== END | disposition home or self-care (01) ==
LOC: LABWHC1 07:09
PROVIDERS: ATTEND Surgery Plastic and Reconstructive Surgery
DX: E66.01 Morbid (severe) obesity due to excess calories (principal); E89.1 Postprocedural hypoinsulinemia; D50.8 Other iron deficiency anemias; E44.0 Moderate protein-calorie malnutrition; E55.9 Vitamin D deficiency, unspecified; K74.1 Hepatic sclerosis; N19 Unspecified kidney failure; T56.894A Toxic effect of other metals, undetermined, initial encounter; K50.90 Crohn's disease, unspecified, without complications
CPT/HCPCS: 36415; 80053; 80061; 82306; 82525; 82607; 82728; 82746; 83036; 83540; 83550; 83735; 83970; 84100; 84134; 84255; 84425; 84443; 84590; 84630; 85027; 85610; 85730

== ENCOUNTER → 2022-02-21 | Outpatient (CLI) | payer BC ==
--- NOTE | 2022-02-21 09:32 | CT ---
EXAMINATION TYPE: CT abdomen pelvis w con DATE OF EXAM: 02/21/2022 COMPARISON: 04/26/2019 HISTORY: 37-year-old female K57.92 diverticulitis TECHNIQUE: Contiguous axial scanning of the abdomen and pelvis following administration of 100 ml Iso ren 370 IV contrast. Delayed images through the kidneys and coronal/sagittal reconstructions perform ed. CT DLP: 1429.60 mGycm Automated exposure control for dose reduction was used. FINDINGS: LUNG BASES: No significant abnormality is appreciated. LIVER/GB: Mildly enlarged at 19.5 cm. No focal lesion seen. No biliary ductal dilatation. Portal veno us system is patent. Cholecystectomy clips. PANCREAS: No significant abnormality is seen. SPLEEN: No significant abnormality is seen. ADRENALS: No significant abnormality is seen. KIDNEYS: No significant abnormality is seen. BOWEL: Previous Donaldo-en-Y gastric bypass. No dilated small bowel, free fluid, or free air. Segments o f the normal appendix are visualized. No significant stool burden. Colon is largely collapsed. No per icolonic inflammatory change. No significant diverticular changes seen. LYMPH NODES: Some clustered borderline sized right lower quadrant mesenteric lymph nodes measuring up to 8 mm. PELVIS: Bladder partially distended. Uterus anteverted with IUD in appropriate situated within the ut erine cavity. Both ovaries are visualized. No abnormal fluid collection in the pelvis or pelvic lymph adenopathy. BONES: Interval placement of L5-S1 posterior and interbody fusion. Mild degenerative spurring of both hips. IMPRESSION: 1. THE COLON IS COLLAPSED. NO SIGNIFICANT STOOL BURDEN. NO SIGNIFICANT DIVERTICULAR CHANGE SEEN. 2. MILD HEPATOMEGALY AT 19.5 CM. 3. SOME NONSPECIFIC CLUSTER OF BORDERLINE SIZE RIGHT LOWER QUADRANT MESENTERIC LYMPH NODES MEASURING UP TO 8 MM LIKELY REACTIVE/POST INFLAMMATORY. 4. STATUS POST DONALDO-EN-Y GASTRIC BYPASS AND CHOLECYSTECTOMY.
== END | disposition home or self-care (01) ==
LOC: RADCTMAIN 06:48
PROVIDERS: ATTEND Surgery Plastic and Reconstructive Surgery
DX: R55 Syncope and collapse (principal); R16.0 Hepatomegaly, not elsewhere classified; Z98.84 Bariatric surgery status
CPT/HCPCS: 74177; Q9967

== ENCOUNTER 2022-03-06 06:45 | Day surgery (SDC) | payer BC ==
[2022-03-01 12:06] VITALS: BMI 39.9
[~2022-03-06 06:45] MED LIST changes: -BACITRACIN 50,000 UNIT, POLYMYXIN B 500,000 UNIT in SODIUM CHLORIDE 0.9% IRRIGATIO 1,00... IRRIGATION ONE; -DEXAMETHASONE SOD PHOSPHATE 10 MG/ML 1 ML VIAL IV ONE; +LACTATED RINGERS 1,000 ML IV SCH; -LIDOCAINE 1% 20 ML VIAL (10MG/ML) FOR IV START INTRADERMA PRN; -MORPHINE SULFATE 4 MG/ML SYRINGE IV PRN; -ONDANSETRON 4 MG/2 ML VIAL IVP ONE
[2022-03-06] MEDS ORDERED: LACTATED RINGERS 1,000 ML IV ONE (07:22)
[2022-03-06 07:26] VITALS: TEMP 97.5
--- NOTE | 2022-03-06 07:42 | P.GSHP ---
History of Present Illness H&P Date: 03/06/22 CHIEF COMPLAINT: GERD and change in bowel habits HISTORY OF PRESENT ILLNESS: The patient is a 37-year-old female who presents with gastroesophageal reflux disease and change in bowel habits. Upper and lower endoscopy were offered for further evaluation and management. PAST MEDICAL HISTORY: Please see list. PAST SURGICAL HISTORY: Please see list. MEDICATIONS: Please see list. ALLERGIES: Please see list. SOCIAL HISTORY: No illicit drug use FAMILY HISTORY: No reports of Crohn disease or ulcerative colitis. REVIEW OF ORGAN SYSTEMS: CONSTITUTIONAL: No reports of fevers or chills. GI: Denies any blood in stools or constipation. PHYSICAL EXAM: VITAL SIGNS: Stable GENERAL: Well-developed pleasant in no acute distress. HEENT: No scleral icterus. Extraocular movements grossly intact. Moist buccal mucosa. NECK: Supple without lymphadenopathy. CHEST: Unlabored respirations. Equal bilateral excursions. CARDIOVASCULAR: Regular rate and rhythm. Distal 2+ pulses. ABDOMEN: Soft, nondistended. MUSCULOSKELETAL: No clubbing, cyanosis, or edema. ASSESSMENT: 1. Gastroesophageal reflux disease 2. Change in bowel habits PLAN: 1. Recommend proceeding with an upper and lower endoscopy Past Medical History Past Medical History: GERD/Reflux, Syncope Additional Past Medical History / Comment(s): Vomiting since late December after meals, abdominal pain, nausea, gas bloating, diarrhea. Hx IBS, hx syncope X2, ELEVATED LIVER ENZYME. History of Any Multi-Drug Resistant Organisms: None Reported Past Surgical History: Back Surgery, Bariatric Surgery, Cholecystectomy, Orthopedic Surgery Additional Past Surgical History / Comment(s): Right knee arthroscopy, Gastric Bypass 08-20-17, laminectomy/discectomy, EGD, COLONOSCOPY, EGD W/ DILATION, lysis of adhesions, spinal fusion L5-S1. Past Anesthesia/Blood Transfusion Reactions: No Reported Reaction, Motion Sickness Past Psychological History: Anxiety Smoking Status: Never smoker, Unknown if ever smoked Past Alcohol Use History: None Reported Past Drug Use History: None Reported - Past Family History Mother Family Medical History: No Reported History Medications and Allergies Home Medications Medication Instructions Recorded Confirmed Type Calcium Carbonate 500 mg PO BID 05/24/18 03/01/22 History Vitamin A Acetate [Vitamin A] 8,000 unit SL BID 05/24/18 03/01/22 History Multivitamins, Thera [Multivitamin 1 tab PO DAILY 05/27/18 03/01/22 History (formulary)] Iron 45mg/Vitamin C 60 Mg 1 tab PO DAILY 10/03/18 03/01/22 History Venlafaxine HCl [Effexor] 37.5 mg PO TID 10/03/18 03/01/22 History Magnesium 250 mg PO DAILY 12/24/18 03/01/22 History diphenhydrAMINE [Benadryl] 50 mg PO HS PRN 04/17/19 03/01/22 History Cholecalciferol (Vitamin D3) 10,000 unit PO DAILY 05/15/19 03/01/22 History [Vitamin D3] Gasx(Dose Unknown) 1 tab PO BID PRN 05/15/19 03/01/22 History Zinc 50 mg PO DAILY 05/15/19 03/01/22 History levonorgestreL [Mirena] 1 each IY ONCE 05/15/19 03/01/22 History Ascorbic Acid [Vitamin C] 1,000 mg PO DAILY 02/01/22 03/01/22 History Ascorbic Acid/Collagen Hydr 1 each PO TID 02/01/22 03/01/22 History [Collagen Plus Vit C Capsule] Biotin 5 mg PO DAILY 02/01/22 03/01/22 History Vitamin B Complex 1 each PO DAILY 02/01/22 03/01/22 History Vitamin K2 100 mcg PO DAILY 02/01/22 03/01/22 History Brexpiprazole [Rexulti] 1 mg PO QAM 03/01/22 03/01/22 History Allergies Allergy/AdvReac Type Severity Reaction Status Date / Time Penicillins Allergy Itching Verified 03/01/22 11:53 dermabond Allergy Itching Uncoded 03/01/22 12:07 Surgical - Exam Vital Signs Temp Pulse Resp BP Pulse Ox 97.5 F L 88 18 132/92 97 03/06/22 07:23 03/06/22 07:23 03/06/22 07:23 03/06/22 07:23 03/06/22 07:23
[2022-03-06] MEDS ORDERED: LIDOCAINE 2% INJ 20 MG/ML (2 ML VIAL) ONE (07:55)
[2022-03-06] MEDS ORDERED: PROPOFOL 10 MG/ML 20 ML VIAL IV ONE (07:55)
--- NOTE | 2022-03-06 08:28 | P.PCN ---
Date of Procedure: 03/06/22 Description of Procedure: PREOPERATIVE DIAGNOSES: 1. Gastroesophageal reflux disease 2. Epigastric abdominal pain. 2. Nausea and vomiting. 3. History of gastric bypass. 4. History of gastric ulcers. POSTOPERATIVE DIAGNOSES: 1. Gastroesophageal reflux disease 2. Epigastric abdominal pain. 2. Nausea and vomiting. 3. History of gastric bypass. 4. History of gastric ulcers. 5. Gastritis PROCEDURE PERFORMED: Esophagogastrojejunoscopy with cold forceps biopsies jejunum, gastric pouch SURGEON: Yaima Deshpande MD ANESTHESIA: MAC. INDICATIONS: The patient is a 37-year-old female with prior history of Donaldo-en-Y gastric bypass presents with gastroesophageal reflux disease, epigastric abdominal pain, and history of ulcers. With his history of Donaldo-en-Y gastric bypass, upper endoscopy was offered for further evaluation and management. DESCRIPTION: Patient was brought to the endoscopy suite and laid in the left lateral decubitus position. After adequate IV sedation, a bite block was placed. An Olympus gastroscope was passed along the posterior oropharynx down to the distal esophagus where the squamocolumnar junction was found at approximately 38 cm from the incisors. The anastomosis was found at 42 cm, consistent with approximately 4 cm gastric pouch. The scope was advanced 60 cm from the incisors. No evidence of foreign body was found. No evidence of active gastrojejunal ulcerations were encountered. Cold forceps biopsies were obtained of the gastric pouch and jejunum. The GI tract was desufflated. The patient tolerated the procedure well. FINDINGS: 1. No acute gastrojejunal ulceration. 2. No foreign body found along the anastomosis. 3. Gastritis of gastric pouch PLAN: 1. Upper endoscopy as needed.
--- NOTE | 2022-03-06 08:31 | P.PCN ---
Date of Procedure: 03/06/22 Description of Procedure: PREOPERATIVE DIAGNOSIS: Change in bowel habits with diarrhea POSTOPERATIVE DIAGNOSIS: Change in bowel habits with diarrhea OPERATION: Colonoscopy with random cold forceps biopsies for colitis Colonoscopy to the cecum, ileocecal valve and appendiceal orifice. SURGEON: Yaima Deshpande MD. ANESTHESIA: MAC. INDICATIONS: The patient is a 37-year-old female who presents with change in bowel habits. Benefits and risks were described and informed consent was obtained. DESCRIPTION OF PROCEDURE: The patient had undergone Sutab prep. The patient had been brought into the operating room and laid in the left lateral decubitus position. After adequate intravenous sedation, the rectum was examined with 2% lidocaine jelly. No external hemorrhoids were encountered. The rectal tone was within normal limits. No lesions were palpated in the rectal vault. An Olympus colonoscope was advanced until the cecum, ileocecal valve and appendiceal orifice were clearly viewed. The prep was fair. No scattered diverticulosis was encountered. No colonic polyps were found. Cold forceps biopsies from random biopsies obtained. Retroflexion of the scope demonstrated grade 1 internal hemorrhoids without active bleeding or inflammation. The colon was desufflated. The patient had tolerated the procedure well. Withdrawal time was over 6 minutes. FINDINGS: Aronchick preparation quality scale 3 (1-5) Internal hemorrhoids, grade 1 No external prolapsed hemorrhoids. No arteriovenous malformations. No adenomatous polyps. Cold biopsy forceps obtained randomly for colitis, microscopic RECOMMENDATIONS: Lower endoscopy as needed. Plan - Discharge Summary Discharge Rx Participant: No New Discharge Prescriptions: Continue Calcium Carbonate 500 mg PO BID Vitamin A Acetate [Vitamin A] 8,000 unit SL BID Multivitamins, Thera [Multivitamin (formulary)] 1 tab PO DAILY Venlafaxine HCl [Effexor] 37.5 mg PO TID Iron 45mg/Vitamin C 60 Mg 1 tab PO DAILY Magnesium 250 mg PO DAILY diphenhydrAMINE [Benadryl] 50 mg PO HS PRN PRN Reason: SLEEP Zinc 50 mg PO DAILY Gasx(Dose Unknown) 1 tab PO BID PRN PRN Reason: Gas Cholecalciferol (Vitamin D3) [Vitamin D3] 10,000 unit PO DAILY levonorgestreL [Mirena] 1 each IY ONCE Ascorbic Acid [Vitamin C] 1,000 mg PO DAILY Vitamin B Complex 1 each PO DAILY Vitamin K2 100 mcg PO DAILY Biotin 5 mg PO DAILY Ascorbic Acid/Collagen Hydr [Collagen Plus Vit C Capsule] 1 each PO TID Brexpiprazole [Rexulti] 1 mg PO QAM Discharge Medication List Calcium Carbonate 500 mg PO BID 05/24/18 [History] Vitamin A Acetate [Vitamin A] 8,000 unit SL BID 05/24/18 [History] Multivitamins, Thera [Multivitamin (formulary)] 1 tab PO DAILY 05/27/18 [History] Iron 45mg/Vitamin C 60 Mg 1 tab PO DAILY 10/03/18 [History] Venlafaxine HCl [Effexor] 37.5 mg PO TID 10/03/18 [History] Magnesium 250 mg PO DAILY 12/24/18 [History] diphenhydrAMINE [Benadryl] 50 mg PO HS PRN 04/17/19 [History] Cholecalciferol (Vitamin D3) [Vitamin D3] 10,000 unit PO DAILY 05/15/19 [History] Gasx(Dose Unknown) 1 tab PO BID PRN 05/15/19 [History] Zinc 50 mg PO DAILY 05/15/19 [History] levonorgestreL [Mirena] 1 each IY ONCE 05/15/19 [History] Ascorbic Acid [Vitamin C] 1,000 mg PO DAILY 02/01/22 [History] Ascorbic Acid/Collagen Hydr [Collagen Plus Vit C Capsule] 1 each PO TID 02/01/22 [History] Biotin 5 mg PO DAILY 02/01/22 [History] Vitamin B Complex 1 each PO DAILY 02/01/22 [History] Vitamin K2 100 mcg PO DAILY 02/01/22 [History] Brexpiprazole [Rexulti] 1 mg PO QAM 03/01/22 [History] Follow up [facility]ment(s[facility] [facility] [place] - [place]/[facility]/22 Patient Instructions/Handouts: Gastritis (DC) Discharge Disposition: HOME SELF-CARE
[2022-03-06 08:32] VITALS: RESP 16
[2022-03-06 08:51] VITALS: BP 117/64; PULSE 85
== END 2022-03-06 09:27 | disposition home or self-care (01) ==
LOC: ORWHC2ENDO 06:45
PROVIDERS: ATTEND Surgery Plastic and Reconstructive Surgery
DX: K64.0 First degree hemorrhoids (principal); K21.9 Gastro-esophageal reflux disease without esophagitis; K31.9 Disease of stomach and duodenum, unspecified; R55 Syncope and collapse; Z98.84 Bariatric surgery status; Z87.11 Personal history of peptic ulcer disease; Z88.0 Allergy status to penicillin; Z79.899 Other long term (current) drug therapy
CPT/HCPCS: 81025; 88305; 45380; 43239; J2704; J2001

== ENCOUNTER → 2022-03-22 | Outpatient (CLI) | payer BC ==
[2022-03-22 12:44] VITALS: BP 121/83; PULSE 79; TEMP 98.3; BMI 39.6
--- NOTE | 2022-03-22 13:47 | P.BASOAP ---
Subjective Progress Note Date: 03/22/22 Reviewed EGD and Colon. Needs dietary journal for food relations. Lower abdominal and left upper quadrant pain. Not related to eating. May need dx lap when. No peritonitis. CT done. Dx lap with 3 month. Objective - Vital Signs Vital signs: Vital Signs Temp 98.3 F 03/22/22 12:40 Pulse 79 03/22/22 12:40 Resp BP 121/83 03/22/22 12:40 Pulse Ox FiO2 Intake & Output 03/21/22 03/22/22 03/22/22 18:59 06:59 18:59 Weight 107.955 kg Assessment/Plan Plan: Date: 03/22/22 Initial Weight: 110.677 kg Initial BMI: 40.6 Current Weight: 107.955 kg Current BMI: 39.6 Type of Surgery: Total Volume in Band: Previous Volume: Volume Removed: Volume Added: Band Size:
== END ==
LOC: BARWHC3 11:57
PROVIDERS: ATTEND Surgery Plastic and Reconstructive Surgery
DX: E66.01 Morbid (severe) obesity due to excess calories (principal); Z68.39 Body mass index [BMI] 39.0-39.9, adult; Z88.0 Allergy status to penicillin; Z88.8 Allergy status to other drugs, medicaments and biological substances
CPT/HCPCS: 99211

== ENCOUNTER → 2022-04-03 | Outpatient (CLI) | payer BC ==
[2022-04-03 18:49] LABS: African American GFR (CKD) 131.2 (60.0-200.0); Albumin 4.3 g/dL (3.8-4.9); Albumin/Globulin Ratio 1.42 (1.60-3.17); Anion Gap 11.9 mmol/L (10.00-18.00); BUN/Creat Ratio 13.13 Ratio (12.00-20.00); Blood Urea Nitrogen 8.2 mg/dL (9.0-27.0); Calcium 9.1 mg/dL (8.7-10.3); Carbon Dioxide 26.1 mmol/L (20.0-27.5); Non-African American GFR(CKD) 113.2 (60.0-200.0); Potassium 3.8 mmol/L (3.5-5.5); Total Bilirubin 0.3 mg/dL (0.30-1.20); Total Protein 7.2 g/dL (6.2-8.2)
[2022-04-03 18:58] LABS: Basophils # (A) 0.03 X 10*3/uL (0.00-0.10); Basophils % (A) 0.4 %; Eosinophils # (A) 0.07 X 10*3/uL (0.04-0.35); HCT 40.4 % (37.2-46.3); HGB 13.5 g/dL (12.0-15.0); Immature Grans, Automated 0.3 %; Lymphocytes # (A) 1.99 X 10*3/uL (0.90-5.00); Lymphocytes % (A) 29.5 %; MCH 29.5 pg (27.0-32.0); MCHC 33.4 g/dL (32.0-37.0); MCV 88.4 fL (80.0-97.0); Mean Platelet Volume 9.4 fL (9.5-12.2); Monocytes # (A) 0.59 X 10*3/uL (0.20-1.00); Monocytes % (A) 8.7 %; NRBC Per 100 WBC 0 /100 WBCS (0.0-0.0); Neutrophils # (A) 4.05 X 10*3/uL (1.80-7.70); Neutrophils % (A) 60.1 %; Platelet Count 392 X 10*3/uL (140-440); RBC 4.57 X 10*6/uL (4.10-5.20); RDW 12.6 % (11.5-14.5); WBC 6.75 X 10*3/uL (4.50-10.00)
== END | disposition home or self-care (01) ==
LOC: LABPAT 12:28
PROVIDERS: ATTEND Surgery Plastic and Reconstructive Surgery
DX: Z01.812 Encounter for preprocedural laboratory examination (principal)
CPT/HCPCS: 80053; 85025; 93005

== ENCOUNTER 2022-04-24 09:38 | Day surgery (SDC) | payer BC ==
[~2022-04-24 09:38] MED LIST changes: +DEXAMETHASONE SOD PHOSPHATE 4 MG/ML 1 ML VIAL IV ONE; +HYDROmorphone 0.5 MG/0.5 ML SYRINGE IVP PRN; -LACTATED RINGERS 1,000 ML IV SCH; +MIDAZOLAM 2 MG/2 ML VIAL IV PRN; +ONDANSETRON 4 MG/2 ML VIAL IVP ONE; +SCOPOLAMINE 1 MG/72 HR PATCH TRANSDERM ONE
[2022-04-24] MEDS ORDERED: LACTATED RINGERS 1,000 ML IV ONE (10:20)
[2022-04-24] MEDS ORDERED: MIDAZOLAM 2 MG/2 ML VIAL IVP ONE ×2 (10:54→10:55)
--- NOTE | 2022-04-24 11:08 | P.ANPRN ---
Procedure Note - Anesthesia - Nerve Block Performed Bilateral Erector Spinae Single Time Out Performed: Yes Date of Procedure: 04/24/22 Procedure Start Time: 10:54 Procedure Stop Time: 11:04 Location of Patient: PreOp Indication: Requested by Surgeon Specifically requested for management of pain by DrMckenna: Yaima Deshpande Sedation Type: Sedate with meaningful contact maintained Preparation: Sterile Prep Position: Prone Needle Types: Pajunk Needle Gauge: 21 Ultrasound used to visualize needle placement: Yes Ultrasound used to observe medication spread: Yes Injectate: 0.5% Ropivacaine (see comment for volume) (30 ml +4 mg dexamethason per side) Blood Aspirated: No Pain Paresthesia on Injection Noted: No Resistance on Injection: Normal Image Stored and Saved: Yes Events: Uneventful and Well Tolerated
[2022-04-24] MEDS ORDERED: HEPARIN SODIUM,PORCINE/PF 5,000 UNIT/0.5 ML SYRINGE SQ STA (11:16)
--- NOTE | 2022-04-24 11:16 | P.GSHP ---
History of Present Illness H&P Date: 04/24/22 CHIEF COMPLAINT: History of intra-abdominal adhesions HISTORY OF PRESENT ILLNESS: The patient is a 37-year-old female who presents with history of intra-abdominal adhesions from multiple prior surgeries including increasing abdominal pain. She now presents for diagnostic laparoscopy including lysis of adhesions. PAST MEDICAL HISTORY: Please see list. PAST SURGICAL HISTORY: Please see list. MEDICATIONS: Please see list. ALLERGIES: Please see list. SOCIAL HISTORY: No illicit drug use FAMILY HISTORY: No reports of Crohn disease or ulcerative colitis. REVIEW OF ORGAN SYSTEMS: CONSTITUTIONAL: No reports of fevers or chills. GI: Denies any blood in stools or constipation. PHYSICAL EXAM: VITAL SIGNS: Stable GENERAL: Well-developed pleasant and in no acute distress. HEENT: No scleral icterus. Extraocular movements grossly intact. Moist buccal mucosa. NECK: Supple without lymphadenopathy. CHEST: Unlabored respirations. Equal bilateral excursions. CARDIOVASCULAR: Regular rate and rhythm. Distal 2+ pulses. ABDOMEN: Soft, diffuse abdominal tenderness. No peritonitis. MUSCULOSKELETAL: No clubbing, cyanosis, or edema. ASSESSMENT: 1. Diffuse abdominal pain. 2. History of multiple abdominal surgeries. 3. Intra-abdominal adhesions. PLAN: 1. Robotic lysis of adhesions were described in detail including risk of injury to the intestine, need for further surgery, and open technique. 2. DVT prophylaxis. 3. Antibiotic prophylaxis. Past Medical History Past Medical History: GERD/Reflux, Syncope Additional Past Medical History / Comment(s): Hx IBS, syncope x 2 few years ago. ELEVATED LIVER ENZYME for a long time, pain in abdomen and n/v for about 2 months History of Any Multi-Drug Resistant Organisms: None Reported Past Surgical History: Back Surgery, Bariatric Surgery, Cholecystectomy, Orthopedic Surgery Additional Past Surgical History / Comment(s): Right knee arthroscopy, Gastric Bypass 08-20-17, laminectomy/discectomy, EGD, COLONOSCOPY, EGD W/ DILATION, lysis of adhesions. Past Anesthesia/Blood Transfusion Reactions: No Reported Reaction, Motion Sickness Smoking Status: Never smoker - Past Family History Mother Family Medical History: Cancer Additional Family Medical History / Comment(s): edometrial cancer Father Family Medical History: No Reported History Medications and Allergies Home Medications Medication Instructions Recorded Confirmed Type Calcium Carbonate 500 mg PO BID 05/24/18 04/21/22 History Vitamin A Acetate [Vitamin A] 8,000 unit SL BID 05/24/18 04/21/22 History Multivitamins, Thera [Multivitamin 1 tab PO DAILY 05/27/18 04/21/22 History (formulary)] Iron 45mg/Vitamin C 60 Mg 1 tab PO DAILY 10/03/18 04/21/22 History Venlafaxine HCl [Effexor] 37.5 mg PO TID 10/03/18 04/21/22 History Magnesium 250 mg PO DAILY 12/24/18 04/21/22 History diphenhydrAMINE [Benadryl] 50 mg PO HS PRN 04/17/19 04/21/22 History Cholecalciferol (Vitamin D3) 10,000 unit PO DAILY 05/15/19 04/21/22 History [Vitamin D3] Gasx(Dose Unknown) 1 tab PO BID PRN 05/15/19 04/21/22 History Zinc 50 mg PO DAILY 05/15/19 04/21/22 History levonorgestreL [Mirena] 1 each IY ONCE 05/15/19 04/21/22 History Ascorbic Acid [Vitamin C] 1,000 mg PO DAILY 02/01/22 04/21/22 History Ascorbic Acid/Collagen Hydr 1 each PO TID 02/01/22 04/21/22 History [Collagen Plus Vit C Capsule] Biotin 5 mg PO DAILY 02/01/22 04/21/22 History Vitamin B Complex 1 each PO DAILY 02/01/22 04/21/22 History Vitamin K2 100 mcg PO DAILY 02/01/22 04/21/22 History Allergies Allergy/AdvReac Type Severity Reaction Status Date / Time Penicillins Allergy Itching Verified 04/24/22 10:24 dermabond Allergy Itching Uncoded 04/24/22 10:24 Surgical - Exam Vital Signs Temp Pulse Resp BP Pulse Ox 98.1 F 89 15 151/88 99 04/24/22 10:19 04/24/22 10:19 04/24/22 10:19 04/24/22 10:19 04/24/22 10:19
[2022-04-24] MEDS ORDERED: MIDAZOLAM 2 MG/2 ML VIAL ONE (11:52)
[2022-04-24] MEDS ORDERED: SUCCINYLCHOLINE CHLORIDE 200 MG/10 ML VIAL IV ONE (11:52)
[2022-04-24] MEDS ORDERED: ROPIVACAINE 5 MG/ML 30 ML VIAL ONE (11:52)
[2022-04-24] MEDS ORDERED: GLYCOPYRROLATE 0.2 MG/ML 2 ML VIAL ONE (11:52)
[2022-04-24] MEDS ORDERED: fentaNYL (PF) 50 MCG/ML 2 ML AMP ONE (11:52)
[2022-04-24] MEDS ORDERED: PROPOFOL 10 MG/ML 20 ML VIAL IV ONE (11:52)
[2022-04-24] MEDS ORDERED: LIDOCAINE 2% INJ 20 MG/ML (2 ML VIAL) ONE (11:52)
[2022-04-24] MEDS ORDERED: PHENYLEPHRINE-0.9% NACL SYG 1,000 MCG/10 ML SYRINGE ONE (11:52)
[2022-04-24] MEDS ORDERED: LIDOCAINE 4% LTA KIT (4 ML) TOPICAL ONE (11:52)
[2022-04-24] MEDS ORDERED: NEOSTIGMINE 1 MG/ML 10 ML VIAL ONE (11:52)
[2022-04-24] MEDS ORDERED: DEXAMETHASONE SOD PHOSPHATE 10 MG/ML 1 ML VIAL ONE (11:52)
[2022-04-24] MEDS ORDERED: ROCURONIUM 10 MG/ML (5 ML VIAL) IV ONE (11:52)
[2022-04-24 12:05] LABS: HCT 39.7 % (34.0-46.0); HGB 13.9 gm/dL (11.4-16.0); MCH 30.8 pg (25.0-35.0); MCHC 34.9 g/dL (31.0-37.0); MCV 88.1 fL (80.0-100.0); Mean Platelet Volume 7.5; Platelet Count 333 k/uL (150-450); RDW 12.4 % (11.5-15.5)
[2022-04-24 12:16] LABS: ALT 19 U/L (4-34); AST 24 U/L (14-36); African American GFR (CKD) >90 (>60 ml/min/1.73 sqM); Albumin 4.3 g/dL (3.5-5.0); Alkaline Phosphatase 145 U/L (38-126); Anion Gap 11 mmol/L; Blood Urea Nitrogen 7 mg/dL (7-17); Calcium 8.6 mg/dL (8.4-10.2); Carbon Dioxide 23 mmol/L (22-30); Chloride 106 mmol/L (98-107); Glucose 79 mg/dL (74-99); Non-African American GFR(CKD) >90 (>60 ml/min/1.73 sqM); Potassium 3.6 mmol/L (3.5-5.1); Sodium 140 mmol/L (137-145); Total Bilirubin 0.5 mg/dL (0.2-1.3); Total Protein 7.7 g/dL (6.3-8.2)
[2022-04-24] MEDS ORDERED: BUPIVACAIN-EPI 0.25%-1:200,000 30 ML VIAL SQ ONE (12:32)
[2022-04-24 13:56] VITALS: TEMP 97
[2022-04-24 14:08] VITALS: RESP 16
[2022-04-24] MEDS: LACTATED RINGERS 1,000 ML IV SCH ×2 (14:16→16:00)
[2022-04-24] MEDS ORDERED: ACETAMINOPHEN IV (For NPO) 1,000 MG in EMPTY BAG 1 BAG IVPB PRN (14:19)
[2022-04-24] MEDS ORDERED: oxyCODONE-APAP 7.5-325MG 1 EACH TAB PO PRN (14:19)
--- NOTE | 2022-04-24 14:21 | P.OP ---
Date of Procedure: 04/24/22 Description of Procedure: SURGEON: HOLLI WELCH MD PREOPERATIVE DIAGNOSES: 1. Right upper quadrant abdominal pain 2. Left upper quadrant abdominal pain POSTOPERATIVE DIAGNOSES: 1. Right upper quadrant abdominal pain 2. Left upper quadrant abdominal pain OPERATION: 1. Robotic-assisted da Shubham Xi laparoscopic with extensive lysis of adhesions over 1 hr ESTIMATED BLOOD LOSS: 5 mL. SPECIMENS REMOVED: None. COMPLICATIONS: None. OPERATIVE FINDINGS: 1. No ventral hernias identified. 2. severe adhesions left upper quadrant involving jejunojejunostomy lysed 3. Appendix within normal limits with adhesions right lower quadrant light INDICATIONS: The patient is a 37-year-old female who presents with epigastric abdominal pain including left upper quadrant abdominal pain. Surgical intervention with diagnostic laparoscopy, lysis of adhesions were described. Informed consent was obtained. Robotic assisted laparoscopic approach was described. Benefits and risks of the procedure including but not limited to bleeding, infection, injury to the small bowel was described. Informed consent was obtained. DESCRIPTION OF PROCEDURE: Patient was brought to the operating room, placed in supine position. After general induction, the abdomen had been prepped and draped in standard sterile fashion. The robotic da Shubham XI system was primed. After a timeout protocol was performed, the patient had been prepped and draped in standard sterile fashion. The robot was docked along the right lateral abdomen. The patient was repositioned in with right side up. Please note prior to docking of the robot; however, a 5 mm 0 degrees laparoscopic trocar entry was performed along the left upper quadrant. The abdomen was insufflated to 15 mmHg pressure which she tolerated well. Diagnostic laparoscopy was performed. Next, three 8 mm robotic ports were placed along the right lateral abdominal wall. The camera 8-mm port was maintained along mid-lateral abdomen. Please note that the ports were placed at least 10 to 15 cm away from the target anatomy. Instruments including graspers and vessel sealer were interchanged by the primary teaching assistant. I had sat at the console. No evidence of incisional hernia was identified. The rest of the abdomen was unremarkable for small bowel pathology. The small bowel from the martina limb to distal ileum was inspected. The small bowel was investigated from the terminal ileum to the ligament of Treitz with finding of redundant mesentery with active small bowel volvulus involving the jejunum to the jejunojejunostomy mesenteric defect. Abnormal adhesions to the jejunojejunostomy was identified and divided. The mesentery small bowel volvulus were reduced. Adhesions along the epigastrium linvolving the transverse colon to the martina limb with an active internal hernia was lysed using vessel sealer. No herniation of bowel was found along the Parikh defect or jejunojejunostomy mesenteric defect. Adhesion of gastrojejunal anastomosis to the anterior abdominal wall was released. Moderate gaseous distention of sigmoid colon was identified with an active sigmoid volvulus similarly reduced secondary to highly redundant colon. The terminal ileum and cecum was unremarkable. Extensive lysis of adhesions over 1 hr was performed. The small bowel was viable.The robot was undocked. All pneumoperitoneum instruments were evacuated from the abdominal cavity. The incisions were reapproximated using 4-0 Monocryl in an interrupted subcuticular fashion. Please note along the trocar sites, local anesthetic was placed as a field block prior to insertion of all instruments. Exofin was applied to the skin. At the end of the procedure needle, sponge, and instrument count had been verified correct by the wind turbine technician. The patient was transferred to postanesthesia care unit in stable condition. Plan - Discharge Summary Discharge Rx Participant: No New Discharge Prescriptions: New Acetaminophen Tab [Tylenol Tab] 1,000 mg PO Q6HR PRN #30 tablet PRN Reason: Pain Simethicone [Gas-X] 125 mg PO AC-TID PRN #20 capsule PRN Reason: Pain Continue Calcium Carbonate 500 mg PO BID Vitamin A Acetate [Vitamin A] 8,000 unit SL BID Multivitamins, Thera [Multivitamin (formulary)] 1 tab PO DAILY Venlafaxine HCl [Effexor] 37.5 mg PO TID Iron 45mg/Vitamin C 60 Mg 1 tab PO DAILY Magnesium 250 mg PO DAILY diphenhydrAMINE [Benadryl] 50 mg PO HS PRN PRN Reason: SLEEP Zinc 50 mg PO DAILY Gasx(Dose Unknown) 1 tab PO BID PRN PRN Reason: Gas Cholecalciferol (Vitamin D3) [Vitamin D3] 10,000 unit PO DAILY levonorgestreL [Mirena] 1 each IY ONCE Ascorbic Acid [Vitamin C] 1,000 mg PO DAILY Vitamin B Complex 1 each PO DAILY Vitamin K2 100 mcg PO DAILY Biotin 5 mg PO DAILY Ascorbic Acid/Collagen Hydr [Collagen Plus Vit C Capsule] 1 each PO TID Discharge Medication List Calcium Carbonate 500 mg PO BID 05/24/18 [History] Vitamin A Acetate [Vitamin A] 8,000 unit SL BID 05/24/18 [History] Multivitamins, Thera [Multivitamin (formulary)] 1 tab PO DAILY 05/27/18 [History] Iron 45mg/Vitamin C 60 Mg 1 tab PO DAILY 10/03/18 [History] Venlafaxine HCl [Effexor] 37.5 mg PO TID 10/03/18 [History] Magnesium 250 mg PO DAILY 12/24/18 [History] diphenhydrAMINE [Benadryl] 50 mg PO HS PRN 04/17/19 [History] Cholecalciferol (Vitamin D3) [Vitamin D3] 10,000 unit PO DAILY 05/15/19 [History] Gasx(Dose Unknown) 1 tab PO BID PRN 05/15/19 [History] Zinc 50 mg PO DAILY 05/15/19 [History] levonorgestreL [Mirena] 1 each IY ONCE 05/15/19 [History] Ascorbic Acid [Vitamin C] 1,000 mg PO DAILY 02/01/22 [History] Ascorbic Acid/Collagen Hydr [Collagen Plus Vit C Capsule] 1 each PO TID 02/01/22 [History] Biotin 5 mg PO DAILY 02/01/22 [History] Vitamin B Complex 1 each PO DAILY 02/01/22 [History] Vitamin K2 100 mcg PO DAILY 02/01/22 [History] Acetaminophen Tab [Tylenol Tab] 1,000 mg PO Q6HR PRN #30 tablet 04/24/22 [Rx] Simethicone [Gas-X] 125 mg PO AC-TID PRN #20 capsule 04/24/22 [Rx] Follow up Appointment(s[facility] [facility] [place] - 04/28/22 9:00 am Patient Instructions/Handouts: *[facility] - Scopalamine Patch Instructions, Scopolamine (Into the eye), *[facility] - Managing Your Pain After Surgery Without Opioids Activity/Diet/Wound Care/Special Instructions: No lifting over 10 pounds in 2 weeks until May 08. May shower. No bath tub soaks for two weeks until May 08 Diet as tolerated. Use Tylenol, simethicone scheduled for the next 24-48 hours for best pain relief. Use ice along incisions for today to prevent swelling. Discharge Disposition: HOME SELF-CARE
[2022-04-24] MEDS ORDERED: ACETAMINOPHEN TAB 500 MG TAB ONE (15:29)
[2022-04-24] MEDS ORDERED: ACETAMINOPHEN TAB 500 MG TAB PO ONE (15:30)
[2022-04-24 15:40] VITALS: BP 106/75; PULSE 94
== END 2022-04-24 16:01 | disposition home or self-care (01) ==
LOC: OR 09:38
PROVIDERS: ATTEND Surgery Plastic and Reconstructive Surgery
DX: R10.11 Right upper quadrant pain (principal); R10.12 Left upper quadrant pain; G89.18 Other acute postprocedural pain; K21.9 Gastro-esophageal reflux disease without esophagitis; K58.9 Irritable bowel syndrome, unspecified; Z90.49 Acquired absence of other specified parts of digestive tract; Z79.899 Other long term (current) drug therapy; Z98.84 Bariatric surgery status; Z98.890 Other specified postprocedural states; Z80.49 Family history of malignant neoplasm of other genital organs; Z79.3 Long term (current) use of hormonal contraceptives; Z79.84 Long term (current) use of oral hypoglycemic drugs
CPT/HCPCS: 44180; 81025; 64999; 80053; 85027; J2250; J0330; J1100 ×2; J2710; J0690; J2405; J3010; J2795; J2370; J2704; J1170; J1644; J2001

== ENCOUNTER → 2022-05-03 | Outpatient (CLI) | payer BC ==
[2022-05-03 14:07] VITALS: BP 127/84; PULSE 114; TEMP 97.9; BMI 39.1
--- NOTE | 2022-05-03 14:56 | P.BASOAP ---
Subjective Progress Note Date: 05/03/22 She reports nause when she does not want. She is eating high carbohydrates. She is eating much cheese. Recommend decrease. She is eating moderate breads. Bread - keto bread. She is eating cheddrar cheese. Fast food she is eating. She has selenium excess. Objective - Vital Signs Vital signs: Vital Signs Temp 97.9 F 05/03/22 14:06 Pulse 114 H 05/03/22 14:06 Resp BP 127/84 05/03/22 14:06 Pulse Ox FiO2 Intake & Output 05/02/22 05/03/22 05/03/22 18:59 06:59 18:59 Weight 106.594 kg Assessment/Plan Plan: Date: 05/03/22 Initial Weight: 110.677 kg Initial BMI: 40.6 Current Weight: 106.594 kg Current BMI: 39.1 Type of Surgery: Total Volume in Band: Previous Volume: Volume Removed: Volume Added: Band Size:
== END ==
LOC: BARWHC3 13:42
PROVIDERS: ATTEND Surgery Plastic and Reconstructive Surgery
DX: E66.01 Morbid (severe) obesity due to excess calories (principal); Z68.39 Body mass index [BMI] 39.0-39.9, adult; Z88.0 Allergy status to penicillin; Z91.048 Other nonmedicinal substance allergy status
CPT/HCPCS: 99211

== ENCOUNTER → 2023-08-02 | Outpatient (CLI) | payer BC ==
--- NOTE | 2023-08-02 18:22 | US ---
EXAMINATION TYPE: US thyroid st tissue head/neck DATE OF EXAM: 08/02/2023 COMPARISON: NONE CLINICAL INDICATION: Female, 38 years old with history of R22.1 LOCALIZED SWELLING,MASS AND LUMP,NECK ; Patient feels 2 lumps within right neck x a few months. Technique: Scanned right neck within submandibular area and lower right neck at patient's areas of pa lpable concern. Findings: Submandibular area: 2 hypoechoic areas with hyperechoic centers seen. Cortex of larger area measures 3 mm. Right lower neck: Hypoechoic area with hyperechoic center seen: cortex measures 3 mm. IMPRESSION: Nonenlarged lymph nodes identified in the right neck.
== END | disposition home or self-care (01) ==
LOC: RADUSWWP 15:40
PROVIDERS: ATTEND Family Medicine
DX: R22.1 Localized swelling, mass and lump, neck (principal)
CPT/HCPCS: 76536